=== PATIENT | male | born 1935 | race Caucasian/White ===

== ENCOUNTER → 2016-12-05 | Outpatient (CLI) | payer OTHER, BC ==
[~2016-12-05] MED LIST: ALL300 OR; ASPI81TA28 PO; LEVO75TA5 PO; METO100T14 PO; OMEP20TA PO; SIMV80TA2 PO
[2016-12-05 12:50] LABS: HEMATOCRIT 40.3 % (42-52); MEAN CELL VOLUME 98.8 fL (80-100); MEAN CORPUSCULAR HEMOGLOBIN 34.1 pg (25-34); MEAN CORPUSCULAR HGB CONC 34.5 g/dl (32-36); MEAN PLATELET VOLUME 11.8 fL (7.4-10.4); PLATELET COUNT 89 K/uL (130-400); RED BLOOD COUNT 4.08 M/uL (4.7-6.1)
[2016-12-05 12:57] LABS: ESTIMATED AVERAGE GLUCOSE 117 mg/dl; HA1C FLAG Normal (Normal)
[2016-12-05 13:07] LABS: ALT/SGPT 25 U/L (12-78); BLOOD UREA NITROGEN 19 mg/dl (7-18); BUN/CREATININE RATIO 14.5 (10-20); CALCIUM 8.9 mg/dl (8.5-10.1); CARBON DIOXIDE 29 mmol/L (21-32); CHLORIDE 107 mmol/L (98-107); CHOLESTEROL 136 mg/dl (0-200); GLUCOSE 97 mg/dl (70-99); POTASSIUM 4.3 mmol/L (3.5-5.1); SODIUM 142 mmol/L (136-145); URIC ACID 4.1 mg/dl (2.6-7.2)
[2016-12-05 13:10] LABS: ALB/GLOB RATIO 1.1 (0.9-2); ALKALINE PHOSPHATASE 68 U/L (45-117); AST/SGOT 19 U/L (15-37); CHOLESTEROL/HDL RATIO 3.8; HDL CHOLESTEROL 36 mg/dl; LDL CHOLESTEROL CALCULATED 69 mg/dl; TRIGLYCERIDES 155 mg/dl (0-150); VERY LOW DENSITY LIPOPROT CALC 31 mg/dl
[2016-12-05 13:29] LABS: BASO % 0.5 %; BASO ABS # 0.04 K/uL (0-0.2); COMPLETE YES; EOS % 4.2 %; IG% 0.3 %; LYMPH % 14.5 %; LYMPH ABS # 1.07 K/uL (1.2-3.4); MONO % 7.3 %; NEUT % 73.2 %
== END | disposition home or self-care (01) ==
LOC: C.LABBFT 08:22
PROVIDERS: ATTEND Internal Medicine
DX: Z00.00 Encounter for general adult medical examination without abnormal findings (principal); E78.00 Pure hypercholesterolemia, unspecified; R73.09 Other abnormal glucose; I10 Essential (primary) hypertension; I25.10 Atherosclerotic heart disease of native coronary artery without angina pectoris

== ENCOUNTER → 2016-12-18 | Outpatient (CLI) | payer OTHER, BC ==
--- NOTE | 2016-12-18 10:21 | DIAGNOSTIC IMAGING REPORT ---
ABDOMINAL ULTRASOUND COMPLETE HISTORY: D69.6 Thrombocytopenia. COMPARISON: None. FINDINGS: Pancreas: The pancreas demonstrates a normal echotexture. Liver: The liver is echogenic consistent with fatty change. Gallbladder: A few small gallstones. No gallbladder wall thickening. CBD: 5 mm. Kidneys: No hydronephrosis. Both kidneys measure 10.6 cm in length. Spleen: Normal in size measuring 11.7 cm in length. Aorta: Normal in caliber. IMPRESSION: 1. Cholelithiasis. No gallbladder wall thickening. 2. Mild hepatic steatosis. Electronically signed by: Steve Levy M.D. 12/18/2016 10:20 AM Dictated Date/Time: 12/18/2016 10:19 AM
--- NOTE | 2016-12-18 11:30 | DIAGNOSTIC IMAGING REPORT ---
BILATERAL CAROTID DOPPLER STUDY HISTORY: Follow-up carotid PLAQUE. Assess for stenosis. COMPARISON: Carotid Doppler 03/25/2014. TECHNIQUE: Real-time, grayscale, and color Doppler sonography of the carotid arteries was performed. Imaging reviewed in the transverse and longitudinal planes. All measurements were calculated based on NASCET criteria. FINDINGS: Antegrade flow is seen in the bilateral vertebral arteries. The brachial pressures are hemodynamically similar. Mild calcified plaque within the bilateral carotid bifurcations. The peak systolic velocity within the right ICA is 69 cm/s. The right systolic ratio is 1.1. The peak systolic velocity within the left ICA is 65 cm/s. The left systolic ratio is 1.2. IMPRESSION: No hemodynamically significant stenosis seen within the carotid arteries. Bilateral carotid bifurcation plaque remains unchanged. Electronically signed by: Steve Levy M.D. 12/18/2016 11:29 AM Dictated Date/Time: 12/18/2016 11:28 AM
--- NOTE | 2016-12-22 12:20 | CODING QUERY MEDICAL NECESSITY ---
SUPPORTING DIAGNOSIS NEEDED A supporting diagnosis is required for the test/procedure performed on this patient in order for us to be reimbursed by the patient's insurance. Please provide a supporting diagnosis for the following test/procedure listed below next to the test name along with your signature. *If there is no additional diagnosis for this patient that would support the following test/procedure please document that below next to the test/procedure. Test(s)/Procedure(s) that require a supporting diagnosis: * CAROTID DOPPLER DUPLEX NECK DIAGNOSIS: * DOS: 12/18/16 Provider Signature: Date: Thank you Radha Cardona Health Information Management Once completed, please kindly fax back to [phone] For questions please call [phone]
== END | disposition home or self-care (01) ==
LOC: C.ULTR 09:26
PROVIDERS: ATTEND Internal Medicine
DX: D69.6 Thrombocytopenia, unspecified (principal); I65.29 Occlusion and stenosis of unspecified carotid artery; K80.20 Calculus of gallbladder without cholecystitis without obstruction

== ENCOUNTER → 2016-12-20 | Outpatient (CLI) | payer OTHER, BC ==
[2016-12-20 11:35] LABS: BASO % 0.6 %; BASO ABS # 0.05 K/uL (0-0.2); COMPLETE YES; HEMATOCRIT 40.5 % (42-52); IG% 0.5 %; LYMPH % 16.8 %; LYMPH ABS # 1.41 K/uL (1.2-3.4); MEAN CELL VOLUME 97.6 fL (80-100); MEAN CORPUSCULAR HEMOGLOBIN 33.7 pg (25-34); MEAN CORPUSCULAR HGB CONC 34.6 g/dl (32-36); MEAN PLATELET VOLUME 9.7 fL (7.4-10.4); MONO % 8.2 %; NEUT % 70.9 %; PLATELET COUNT 259 K/uL (130-400); RED BLOOD COUNT 4.15 M/uL (4.7-6.1); WHITE BLOOD COUNT 8.41 K/uL (4.8-10.8)
== END | disposition home or self-care (01) ==
LOC: C.LABSPEC 10:36
PROVIDERS: ATTEND Internal Medicine
DX: D69.6 Thrombocytopenia, unspecified (principal); E03.9 Hypothyroidism, unspecified

== ENCOUNTER → 2017-01-10 | Outpatient (CLI) | payer OTHER, BC ==
[2017-01-10 12:55] LABS: BLOOD UREA NITROGEN 22 mg/dl (7-18)
== END | disposition home or self-care (01) ==
LOC: C.LABBFT 09:32
DX: H91.8X2 Other specified hearing loss, left ear (principal)

== ENCOUNTER → 2017-01-11 | Outpatient (CLI) | payer OTHER, BC ==
--- NOTE | 2017-01-11 14:12 | DIAGNOSTIC IMAGING REPORT ---
MRI OF THE BRAIN AND IACS WITHOUT AND WITH IV CONTRAST CLINICAL HISTORY: Asymmetric hearing loss left greater than right. COMPARISON STUDY: No previous studies for comparison. TECHNIQUE: MRI of the brain was performed from the vertex to the skull base utilizing various T1 and T2 weighted sequences. Following the IV administration of 8 mL of Gadavist contrast, additional enhanced images were obtained. FINDINGS: Sagittal T1, axial diffusion, proton density and T2 weighted axial, coronal FLAIR, and pre and post axial T1-weighted images were acquired. These were supplemented with post gadolinium coronal T1 weighted images. No intra or extra-axial mass lesions are visualized. Axial diffusion-weighted images reveal no evidence of acute or subacute infarction. There is no evidence of ventricular dilatation. Proton density T2-weighted and FLAIR images reveal no significant intraparenchymal signal abnormalities. There are no abnormal flow voids. There is no evidence of pathologic enhancement. The 7th and 8th nerve complexes appear normal bilaterally. No cerebellopontine angle masses are visualized. IMPRESSION: Normal MRI of the brain for age Electronically signed by: Mark Iqbal M.D. 01/11/2017 2:11 PM Dictated Date/Time: 01/11/2017 2:08 PM
== END | disposition home or self-care (01) ==
LOC: C.MRI 12:01
DX: H91.8X2 Other specified hearing loss, left ear (principal)

== ENCOUNTER → 2017-10-02 | Outpatient (CLI) | payer OTHER, BC | END | disposition home or self-care (01) | LOC: C.LABBFT 07:50 | PROVIDERS: ATTEND Internal Medicine Cardiovascular Disease | DX: E78.00 Pure hypercholesterolemia, unspecified (principal) ==

== ENCOUNTER → 2018-01-08 | Outpatient (CLI) | payer OTHER, BC ==
[2018-01-08 12:51] LABS: RETIC COUNT % 1.5 % (0.5-2.0)
[2018-01-08 13:29] LABS: ALBUMIN 3.7 gm/dl (3.4-5.0); BLOOD UREA NITROGEN 23 mg/dl (7-18); CARBON DIOXIDE 26 mmol/L (21-32); CREATININE 1.37 mg/dl (0.60-1.40); GLUCOSE 92 mg/dl (70-99); SODIUM 137 mmol/L (136-145)
[2018-01-08 13:34] LABS: PHOSPHORUS 2.6 mg/dl (2.5-4.9); TRANSFERRIN 216 mg/dl (200-360)
== END | disposition home or self-care (01) ==
LOC: C.LABBFT 07:54
PROVIDERS: ATTEND Internal Medicine
DX: I25.10 Atherosclerotic heart disease of native coronary artery without angina pectoris (principal); D64.9 Anemia, unspecified; I10 Essential (primary) hypertension

== ENCOUNTER 2019-07-08 11:48 | Observation (INO) ==
[2019-07-08] MEDS ORDERED: fentaNYL citrate 100 MCG/2 ML VIAL ONE (13:18)
[2019-07-08] MEDS ORDERED: MIDAZOLAM HCL 5 MG/ML 1 ML VIAL ONE (13:18)
[2019-07-08] MEDS ORDERED: LIDOCAINE HCL 1% 20 ML VIAL ONE (13:18)
[2019-07-08] MEDS ORDERED: BACITRACIN OINT 0.9 GM PKT ONE (13:18)
[2019-07-08] MEDS ORDERED: BACITRACIN INJ 50,000 UNIT VIAL ONE (13:18)
[2019-07-08] MEDS ORDERED: CEFAZOLIN 250 MG/ML 1 GM VIAL ONE (13:19)
--- NOTE | 2019-07-08 13:47 | History & Physical Bridge Note ---
Date of Service July 08, 2019 History & Physical Bridge Note I have examined the patient, reviewed the History & Physical and in the interval since the performance of the History & Physical I have noted the following changes of clinical significance: no changes noted. I repeated the electrocardiogram today, his QRS remains just over 120 ms, with an IVCD pattern, not sufficient to make biventricular pacing worthwhile. I discussed the indications, procedure, risks and alternatives with him and his family and they understand and he agrees to proceed. Consent obtained. I also discussed conscious sedation and he agrees. Consent obtained.
--- NOTE | 2019-07-08 13:48 | Pre Anesthesia Assessment ---
Date of Service July 08, 2019 Pre Sedation Assessment Vital Signs Temp Pulse Resp BP Pulse Ox 07/08/19 12:07 36.5 C 60 14 134/75 98 Cardiovascular RRR, no murmur, no edema Respiratory normal respiratory effort, lungs clear to auscultation Pre-Sedation Airway Assessment Smoking Status: Never smoker Hx Sleep Apnea: No Hx Difficult Intubation: No Short, Thick Neck: No Thyromental Distance: > or= 3.5 Finger Breadths Mallampati Class: III ASA: ASA3 NPO Status Date of Last Intake of Fluids: 07/08/19 Time of Last Intake of Fluids: 07:00 Last Oral Intake of Fluids Comment: sips with pills Date of Last Intake of Solid Food: 07/07/19 Time of Last Intake of Solid Foods: 20:00 Procedure Planning Contraindications for Sedation: none Current Medications Reviewed: Yes Notes The planned sedation has been discussed with the patient. Informed Consent was obtained. I have identified the patient, determined the appropriateness of sedation and have assessed the patient immediately prior to the procedure. All medicine(s) and interventions are by my order.
--- NOTE | 2019-07-08 15:11 | Operative Report ---
Post Operative Report Pre & Post Diagnosis Operation Date: 07/08/19 13:00 Preoperative diagnosis: Ischemic cardiomyopathy, sinus bradycardia Postoperative diagnosis: Same Procedure Operation Date: 07/08/19 13:00 Actual Procedures p ICD Insertion Single or Dual - Sy Bolden MD (dual-chamber ICD implantation) Surgeon Sy Bolden MD Medical Writer None Estimated Blood Loss 30 Findings Consistent with Post-Op Diagnosis Good lead position, good measurements Specimens None Anesthesia Type Local Complications none Disposition Accompanied Patient To Recovery: No Disposition: PCU Description of Procedure After obtaining informed consent for the procedure, the patient was brought to the laboratory and prepped and draped in the standard sterile manner. The left prepectoral region was anesthetized with 1% lidocaine local anesthetic and left axillary venipuncture was performed by percutaneous technique and a guidewire placed through the left subclavian vein into the superior vena cava. The area was further infiltrated with 1% lidocaine local anesthetic and a 7 cm incision was made parallel to the left clavicle and 2 cm below it and carried down to the anterior pectoralis fascia. An ICD pocket was formed by blunt dissection anterior to the pectoralis fascia and a bacitracin-soaked sponge (50,000 units in 50 cc normal saline solution) was placed in the pocket. A 10.5 [place] Medtronic lead introducer was placed over the guidewire into the left subclavian vein, the dilator and guidewire were removed and a bipolar dual coil active fixation steroid tipped ventricular ICD lead was advanced through the introducer into the superior vena cava. A guidewire was placed through the introducer and the introducer was stripped from the lead and guidewire. An 8 [place] Medtronic lead introducer was placed over the guidewire into the left subclavian vein, the dilator and guidewire were removed and a bipolar active fixation steroid tipped atrial lead was advanced through the introducer into the superior vena cava. A guidewire was placed back through the introducer and the introducer was stripped from the lead and guidewire. Using a curved stylette the ventricular lead was advanced through the right ventricular outflow tract into the pulmonary artery and then using a straight stylette was positioned in the right ventricular apex. The screw was extended fixing the lead in position. Pacing and sensing thresholds were evaluated in bipolar configuration and are recorded on the implant data sheet. Using a curved stylette the atrial lead was positioned in the region of the atrial appendage and the screw extended fixing the lead in position. Pacing and sensing thresholds were evaluated in bipolar configuration and are recorded on the implant data sheet. Once the leads were in position they were attached to the anterior pectoralis fascia using 2 sutures of 2-0 silk around each lead collar. The bacitracin- soaked sponge was removed from the pocket, hemostasis was obtained, the ICD was attached to the leads and placed in the pocket with the leads coiled beneath it. The incision was closed with a running double subcutaneous closure of 3-0 Vicryl absorbable suture, followed by running subcuticular skin closure of 4-0 Vicryl absorbable suture. Bacitracin ointment was placed on the incision and a dressing applied. I attest to the content of the Intraoperative Record and any orders documented therein. Any exceptions are noted below.
[2019-07-08] MEDS ORDERED: ACETAMINOPHEN 325 MG TAB PO PRN (15:16)
[2019-07-08] MEDS ORDERED: KETOROLAC TROMETHAMINE 10 MG TABLET PO PRN (15:16)
[2019-07-08] MEDS ORDERED: NITROGLYCERIN SL 0.4 MG/TAB TAB SL PRN (15:18)
--- NOTE | 2019-07-08 15:21 | Post Anesthesia Assessment ---
Date of Service July 08, 2019 Post Sedation Assessment Vital Signs Temp Pulse Resp BP Pulse Ox 07/08/19 12:07 36.5 C 60 14 134/75 98 Recovery Score Activity: Moves 4 extremities Respiration: Deep Breath/Cough Consciousness: Fully Awake Oxygen Saturation: > 92% On Room Air Discharge Sedation Level of Care: Fast Track Phase II Post Sedation Plan On clinical assessment, the patient appears to have tolerated the sedation without complications. Patient is recovering as anticipated. Patient will continue to be monitored by nursing and may be discharged when sedation discharge criteria are met per below protocol. Upon Completions of procedure and additional 15 minutes continue every 5 minute vital signs and the P.A.R. score; then discharge to a Phase I or Fast Track to Phase II per the following guidelines: * Discharge Patient to appropriate Phase II area if PAR is 8 or greater or return to pre- procedure baseline. The post - procedure orders will be as directed. * If PAR score is less than 8 or not return to pre-procedure baseline then patient will follow Phase I monitoring till PAR is reached for Phase II. The Phase I may be done in procedure room or may call to secure a Phase I area. * If naloxone or flumazenil are used for reversal, hold in Phase I for continued monitoring from when last reversal dose was given for a minimum of 60 minutes or longer pending the nurse and/or physician discretion of patient condition before discharge to Phase II. Please call the Sedation Physician to re-evaluate and complete post-note for discharge to Phase II area. Do NOT discharge from procedure sedation or Phase 1 until post- sedation evaluation note is complete by procedure /sedation MD Sedation Discharge Instructions to be given to the patient at discharge to home.
[2019-07-08] MEDS: RANOLAZINE 500 MG ER TAB PO SCH (19:21)
[2019-07-08] MEDS: PANTOprazole 40 MG TAB PO SCH (19:21)
[2019-07-09] MEDS ORDERED: LEVOTHYROXINE SODIUM 75 MCG TABLET PO SCH (06:30)
[2019-07-09] MEDS ORDERED: PNEUMOCOCCAL ADMINISTRATION CHARGE ONE (08:00)
[2019-07-09] MEDS ORDERED: PNEUMOCOCCAL POLYSACCHARIDES 25 MCG/0.5 ML VIAL/SYR IM ONE (08:00)
[2019-07-09] MEDS: PANTOprazole 40 MG TAB PO SCH (08:01)
[2019-07-09] MEDS: RANOLAZINE 500 MG ER TAB PO SCH (08:01)
[2019-07-09] MEDS ORDERED: SIMVASTATIN 40 MG TAB PO SCH (09:00)
[2019-07-09] MEDS ORDERED: allopurinoL 300 MG TAB PO SCH (09:00)
[2019-07-09] MEDS ORDERED: ASCORBIC ACID 500 MG TAB PO SCH (09:00)
[2019-07-09] MEDS ORDERED: ASPIRIN 81 MG ECTAB PO SCH (09:00)
[2019-07-09] MEDS ORDERED: METOPROLOL SUCC 50MG EXT REL TAB PO SCH (09:00)
[2019-07-09] MEDS ORDERED: CEROVITE ADV FORMULA TAB PO SCH (09:00)
--- NOTE | 2019-07-09 09:38 | XRay Report ---
TWO VIEW CHEST CLINICAL HISTORY: Pacemaker implantation. FINDINGS: PA and lateral chest radiographs are compared to study dated 03/19/2019. A 2-lead cardiac AIC D has been placed and partially obscures the left apex. Leads project over the right atrial appendage and the right ventricle. The heart is enlarged noting atherosclerotic calcification of the thoracic aorta. The pulmonary vasculature is noncongested. There are calcified mediastinal and hilar lymph nod es. Chronic interstitial thickening is similar to previous. No airspace consolidation or pleural effu ashwin is identified. There is no pneumothorax. The skeletal structures are osteopenic. The bony thorax appears intact. IMPRESSION: 1. A 2-lead cardiac AICD has been placed as detailed above. No pneumothorax is seen post procedure. 2. Cardiomegaly without radiographic evidence of congestive failure. 3. No airspace consolidation or pleural effusion is identified. Electronically signed by: Kun Celeste M.D. 07/09/2019 9:36 AM
--- NOTE | 2019-07-09 10:49 | Cardiology Progress Note ---
Date of Service July 09, 2019 Assessment & Plan (1) History of implantable cardioverter-defibrillator (ICD) placement: He is doing well postop day #1, the site looks good, the chest x-ray shows good lead position and the device is working well. He is stable for discharge. Subjective He is feeling well today, he has no significant incisional discomfort, no shortness of breath and no chest discomfort. Physical Exam Physical Exam: The ICD insertion site looks clean and dry, there is no bleeding or swelling. Minimal ecchymosis, no tenderness. Results & Data Vital Signs (Past 12 Hours) Vital Signs Temp Pulse Resp BP Pulse Ox 07/09/19 10:41 36.7 C 64 18 121/67 95 07/09/19 07:18 36.7 C 64 18 121/67 95 07/09/19 03:22 37.0 C 65 17 115/70 95 07/08/19 23:30 37.1 C 66 17 124/74 95 Diagnostic Findings Electrocardiogram: Atrial pacing with first-degree AV block. Appropriate pacemaker function. Telemetry: Predominantly atrial pacing, some sinus rhythm, first-degree AV block. Chest x-ray: Good lead position, no pneumothorax ICD evaluation: Excellent pacing and sensing characteristics. PG Care Time/CCT Total # of Minutes Spent Total Time Spent with Patient: Total time spent is greater than 50% in coordination of care (as documented) at patient's floor/unit and/or counseling patient:
--- NOTE | 2019-07-09 10:53 | Discharge Summary ---
Date of Service July 09, 2019 Admission HPI Per Admitting Provider 83-year-old male with an ischemic cardiomyopathy and ejection fraction of 20 to 25% with interventions in the past. His left ventricular function remains reduced on medical therapy therefore he is admitted to undergo ICD implantation for primary prevention of sudden cardiac . Admission Exam (Per Admitting) Constitutional Constitutional: Alert, cooperative and in no distress. Pulmonary: Clear to auscultation bilaterally. Cardiac: Regular rhythm with no murmur, gallop or rub. Abdomen: Soft, nontender with normal bowel sounds. Extremities: No edema. Skin: No rash, ecchymoses or petechiae. Discharge Data Procedures Performed Operation Date: 07/08/19 13:00 Actual Procedures p ICD Insertion Single or Dual - Sy Bolden MD Hospital Course (1) Cardiomyopathy: He was admitted for ICD implantation which was performed on July 08 2019. That procedure was uncomplicated. A dual-chamber device was used as he has sinus bradycardia and he has dyspnea on exertion which may in part be heart rate related. He did well overnight following the procedure, he feels well the following day and is ambulatory. He is stable for discharge.
== END 2019-07-09 13:51 | disposition home or self-care (01) ==
LOC: 2E 11:48 → EP 11:48
PROC: EPB.ICD (2019-07-08 13:00)

== ENCOUNTER 2020-12-27 14:29 | Inpatient (IN) ==
[2020-12-27 15:07] LABS: Basophils # (auto) 0.02 K/uL (0-0.2); Basophils % (auto) 0.2 %; Eosinophils # (auto) 0.07 K/uL (0-0.5); Eosinophils % (auto) 0.7 %; Hematocrit (blood only) 37.3 % (42-52); Hemoglobin 13.4 g/dL (14.0-18.0); Immature Granulocytes # (auto) 0.03 K/uL (0.00-0.02); Immature Granulocytes % (auto) 0.3 %; Lymphocytes # (auto) 1.01 K/uL (1.2-3.4); Lymphocytes % (auto) 10.8 %; Mean Corpuscular Hemoglobin 39.2 pg (25-34); Mean Corpuscular Hgb Conc 35.9 g/dL (32-36); Mean Corpuscular Volume 109.1 fL (80-100); Mean Platelet Volume 10.2 fL (7.4-10.4); Monocytes # (auto) 0.52 K/uL (0.11-0.59); Monocytes % (auto) 5.6 %; Neutrophils # (auto) 7.69 K/uL (1.4-6.5); Neutrophils % (auto) 82.4 %; Platelet Count 155 K/uL (130-400); RDW Coefficient of Variation 13.6 % (11.5-14.5); RDW Standard Deviation 54.1 fL (36.4-46.3); Red Blood Count 3.42 M/uL (4.7-6.1); White Blood Count 9.34 K/uL (4.8-10.8)
--- NOTE | 2020-12-27 15:20 | XRay Report ---
XR chest 1V portable CLINICAL HISTORY: Atypical chest pain COMPARISON STUDY: 03/04/2020 FINDINGS: The heart remains enlarged. Is a left subclavian pacer/defibrillator present. There are sherri cified mediastinal and hilar lymph nodes. There is no failure. There is no focal pulmonary consolidat ion. There are no pleural effusions.[ IMPRESSION: Stable cardiomegaly. No acute findings. ACT 112: Negative or not required by law. Electronically signed by: Mark Iqbal M.D. 12/27/2020 3:19 PM
[2020-12-27] MEDS ORDERED: SODIUM CHLORIDE 0.9% 1000ML 500 ML IV ONE (15:24)
--- NOTE | 2020-12-27 15:29 | Emergency Department Note ---
Impression & Plan Diffuse abdominal pain, SBO (small bowel obstruction), Abdominal distension ED Provider Note NAME: ALLY ORTIZ AGE: 85 SEX: M : 1935 ARRIVES VIA: Walk-In INFORMANT: [Patient] ED PROVIDER(S): [Kun Schafer MD] CHIEF COMPLAINT: Abdominal pain HISTORY OF PRESENT ILLNESS: The patient is an 85-year-old male presents to the ER with 3 days of colicky diffuse abdominal pain. The patient states eating makes things worse. He feels more bloated. The pain has been as bad as a 7/10 although right now, he does not have any pain. There has been no nausea or vomiting. No fever, no diarrhea. No cough or cold or congestion. No chest pain. No urinary complaints. Patient has not had any sick contacts, he has not eaten any food that he would think is responsible. Patient states he has not ever felt this way before. REVIEW OF SYSTEMS: See HPI for pertinent positives and negatives. A total of ten systems were reviewed and were otherwise negative. PMHx/PSHx: See Below SOCIAL HISTORY: See Below. PHYSICAL EXAM: GENERAL: Patient is in no acute distress. HEENT: No acute trauma, normocephalic atraumatic, mucous membranes moist, no nasal congestion, no scleral icterus. NECK: No stridor, no adenopathy, no meningismus, trachea is midline. LUNGS: Clear to auscultation bilaterally, no wheeze, no rhonchi, breath sounds equal. HEART: No murmurs, somewhat irregular rhythm, normal rate. ABDOMEN: Soft, tender primarily in the lower quadrants, more so on the right. There is some abdominal distention with tympany to percussion. No obvious her becky. EXTREMITIES: No cyanosis or edema, full range of motion of all the joints without pain or difficulty, no signs for acute trauma. NEUROLOGIC: Oriented x 3, no acute motor or sensory deficits, no focal weakness. SKIN: No rash, no jaundice, no diaphoresis. DIFFERENTIAL DIAGNOSIS: Appendicitis, testicular torsion, infections, diverticulitis, UTI, obstruction, mesenteric ischemia, aortic pathology, inflammatory bowel disease, renal colic, PUD, pancreatitis, biliary pathology, hernia, volvulus, constipation, as well as other pathologies. EMERGENCY DEPARTMENT COURSE/PROCEDURES: ECG: Indication was abdominal pain. The ECG shows a sinus rhythm with a first-degree AV block with occasional atrial pacing. There are some inverted T waves laterally. The rate is 65. The QTc is 434. There is no ST elevation, no PVCs. Compared to an ECG from 08 July 2019, continuous atrial pacing is no longer present. Continuous Cardiac Monitoring: An order was placed for continuous cardiac monitoring. The monitor shows a rate of 63 with atrial pacing. MEDICAL DECISION MAKING: There is no leukocytosis or concerning anemia. There is a normal platelet count. There was some mild renal insufficiency but this has been documented before. No electrolyte abnormality in need of emergent correction. No worrisome liver enzyme elevation. ECG showed a sinus rhythm with occasional atrial pacing. No acute ischemic change. Cardiac enzyme testing x1 is not consistent with acute cardiac injury. There is no evidence for pancreatitis. Covid testing returned negative. Chest film did not show pneumonia or free air. Abdominal and pelvis CT showed evidence for a small bowel obstruction. No evid ence for abscess or diverticulitis. On exam, the patient's abdomen was distended with tympany to percussion. There was no peritonitis. The patient was not toxic or febrile. The patient received IV saline, 500 cc. He did not require anything for pain. He did eventually have an NG tube placed to low intermittent suction. The patient presents with diffuse abdominal pain and abdominal bloating. He was found to have a small bowel obstruction. An NG tube is now in place. Hospitalization is warranted. I did speak to the patient and case management. I spoke to general surgery. The on-call hospitalist was consulted. Past Med/Surg History Medical History Congenital heart disease Hyperlipidemia Hypothyroidism ICD (implantable cardioverter-defibrillator) in place Myocardial Infarction Ventricular tachycardia Surgical History (Updated 12/27/20 @ 16:48 by Ulysses Andrews MD) History of heart artery stent 04/01/20 [place] [facility] [place] History of implantable cardioverter-defibrillator (ICD) placement Family History (Updated 01/08/20 @ 13:25 by Janay Riojas) Brother Hx of CABG Sister Myocardial infarction Social History Smoking Status: Never smoker Second Hand Exposure: No; Hx Alcohol Use: Yes Alcohol type: beer Hx Substance Use: No Preferred Language: Portuguese Communication Ability: Effective Portuguese Tutor Required: No Beliefs That Will Affect Care: None Current Living Situation: Spouse 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 Feels Safe at Home: Yes Assistive Devices: Glasses Allergies Allergies Allergy/AdvReac Type Severity Reaction Status Date / Time No Known Drug Allergies Allergy Unknown Verified 12/27/20 16:22 Home Meds Home Medications Medication Instructions Recorded Confirmed aspirin 81 mg tablet 81 mg PO DAILY tab 06/02/19 12/27/20 nitroglycerin 0.4 mg sublingual 0.4 mg SL Q5M PRN #25 tab 06/02/19 12/27/20 tablet ascorbic acid (vitamin C) [Vitamin 250 mg PO DAILY 07/08/19 12/27/20 C] multivitamin 1 cap PO DAILY 07/08/19 12/27/20 clopidogrel 75 mg tablet 75 mg PO DAILY 07/19/20 12/27/20 levothyroxine 100 mcg capsule 100 mcg PO DAILY 07/19/20 12/27/20 Previous Rx's Medication Instructions Recorded ranolazine 500 mg tablet,extended 500 mg PO BID #180 tab 01/19/20 release,12 hr allopurinol 300 mg tablet 300 mg PO DAILY #90 tab 07/05/20 omeprazole 20 mg capsule,delayed 20 mg PO DAILY #30 cap 08/02/20 release simvastatin 80 mg tablet 40 mg PO DAILY #45 tab 09/13/20 metoprolol succinate 100 mg 100 mg PO BID #180 tab 10/18/20 tablet,extended release 24 hr Results & Data (ED) Vital Signs Vital Signs - 24 hr 12/27/20 14:33 12/27/20 14:50 12/27/20 15:36 Temperature 36.4 C L Temperature Source Temporal Artery Scan Pulse Rate 76 63 Pulse Rate [Left Finger] 65 Pulse Rhythm Regular Pulse Strength Normal Respiratory Rate 18 16 20 Respiratory Effort / Characteristics Non-Labored Spontaneous Respiratory Depth Normal Respiratory Pattern Regular Blood Pressure 109/74 Blood Pressure [Left Arm] 124/70 Blood Pressure Mean 85 Blood Pressure Mean [Left Arm] 88 Blood Pressure Position [Left Arm] Sitting Pulse Oximetry 94 98 98 Oxygen Delivery Method Room Air Room Air Room Air Sepsis Recent Fever Within 48 Hours No Sepsis New/Unexplained Change in Mental Status N/A Sepsis Action Taken by Nursing No Action Required 12/27/20 17:24 Temperature Temperature Source Pulse Rate Pulse Rate [Left Finger] 66 Pulse Rhythm Pulse Strength Respiratory Rate 20 Respiratory Effort / Characteristics Respiratory Depth Respiratory Pattern Blood Pressure Blood Pressure [Left Arm] 150/107 H Blood Pressure Mean Blood Pressure Mean [Left Arm] 121 Blood Pressure Position [Left Arm] Sitting Pulse Oximetry 96 Oxygen Delivery Method Room Air Sepsis Recent Fever Within 48 Hours Sepsis New/Unexplained Change in Mental Status Sepsis Action Taken by Detention Medications Current Medication List: was personally reviewed by me Laboratory Data Attestation: I reviewed the patient's lab results. Result diagrams: 12/28/20 08:44 12/28/20 08:44 Lab Results 12/27/20 12/27/20 12/27/20 Range/Units 14:07 14:07 16:46 WBC 9.34 (4.8-10.8) K/uL RBC 3.42 L (4.7-6.1) M/uL Hgb 13.4 L (14.0-18.0) g/dL Hct 37.3 L (42-52) % MCV 109.1 H (80-100) fL MCH 39.2 H (25-34) pg MCHC 35.9 (32-36) g/dL RDW Std Deviation 54.1 H (36.4-46.3) fL RDW Coeff of Karla 13.6 (11.5-14.5) % Plt Count 155 (130-400) K/uL MPV 10.2 (7.4-10.4) fL Immature Gran % (Auto) 0.3 % Neut % (Auto) 82.4 % Lymph % (Auto) 10.8 % [place] % (Auto) 5.6 % Eos % (Auto) 0.7 % Baso % (Auto) 0.2 % Neut # (Auto) 7.69 H (1.4-6.5) K/uL Lymph # (Auto) 1.01 L (1.2-3.4) K/uL [place] # (Auto) 0.52 (0.11-0.59) K/uL Eos # (Auto) 0.07 (0-0.5) K/uL Baso # (Auto) 0.02 (0-0.2) K/uL Immature Gran # (Auto) 0.03 H (0.00-0.02) K/uL Sodium 139 (136-145) mmol/L Potassium 4.1 (3.5-5.1) mmol/L Chloride 107 (98-107) mmol/L Carbon Dioxide 29 (21-32) mmol/L Anion Gap 3.0 (3-11) BUN 23 H (7-18) mg/dl Creatinine 1.54 H (0.6-1.4) mg/dl Est Cr Clr Drug Dosing 37.7 ml/min Est GFR ( Amer) 47.3 Est GFR (Non-Af Amer) 40.8 BUN/Creatinine Ratio 15.2 (10-20) Glucose 124 H (70-99) mg/dl Calcium 9.2 (8.5-10.1) mg/dl Total Bilirubin 0.7 (0.2-1) mg/dl AST 13 L (15-37) U/L ALT 18 (12-78) U/L Alkaline Phosphatase 68 (45-117) U/L Troponin I < 0.015 (0-0.045) ng/ml Total Protein 7.6 (6.4-8.2) gm/dl Albumin 3.6 (3.4-5.0) gm/dl Globulin 4.0 (2.5-4.0) gm/dl Albumin/Globulin Ratio 0.9 (0.9-2) Lipase 48 L (73-393) U/L COVID-19 Eval Order Covid19 IDNow atMVTC SARS-CoV-2, RNA, NAAT (NEGATIVE) 12/27/20 Range/Units 16:46 WBC (4.8-10.8) K/uL RBC (4.7-6.1) M/uL Hgb (14.0-18.0) g/dL Hct (42-52) % MCV (80-100) fL MCH (25-34) pg MCHC (32-36) g/dL RDW Std Deviation (36.4-46.3) fL RDW Coeff of Karla (11.5-14.5) % Plt Count (130-400) K/uL MPV (7.4-10.4) fL Immature Gran % (Auto) % Neut % (Auto) % Lymph % (Auto) % [place] % (Auto) % Eos % (Auto) % Baso % (Auto) % Neut # (Auto) (1.4-6.5) K/uL Lymph # (Auto) (1.2-3.4) K/uL [place] # (Auto) (0.11-0.59) K/uL Eos # (Auto) (0-0.5) K/uL Baso # (Auto) (0-0.2) K/uL Immature Gran # (Auto) (0.00-0.02) K/uL Sodium (136-145) mmol/L Potassium (3.5-5.1) mmol/L Chloride (98-107) mmol/L Carbon Dioxide (21-32) mmol/L Anion Gap (3-11) BUN (7-18) mg/dl Creatinine (0.6-1.4) mg/dl Est Cr Clr Drug Dosing ml/min Est GFR ( Amer) Est GFR (Non-Af Amer) BUN/Creatinine Ratio (10-20) Glucose (70-99) mg/dl Calcium (8.5-10.1) mg/dl Total Bilirubin (0.2-1) mg/dl AST (15-37) U/L ALT (12-78) U/L Alkaline Phosphatase (45-117) U/L Troponin I (0-0.045) ng/ml Total Protein (6.4-8.2) gm/dl Albumin (3.4-5.0) gm/dl Globulin (2.5-4.0) gm/dl Albumin/Globulin Ratio (0.9-2) Lipase (73-393) U/L COVID-19 Eval Order SARS-CoV-2, RNA, NAAT NEGATIVE (NEGATIVE) Administered Medications Allopurinol (Allopurinol 300 Mg Tab) 300 mg PO DAILY IDALMIS Stop: 01/27/21 08:59 Last Admin: 12/28/20 08:25 Dose: 300 mg Documented by: [id number] Aspirin (Aspirin 81 Mg Ectab) 81 mg PO DAILY IDALMIS Stop: 01/27/21 08:59 Last Admin: 12/28/20 08:25 Dose: 81 mg Documented by: [id number] Clopidogrel Bisulfate (Clopidogrel Bisulfate 75 Mg Tab) 75 mg PO DAILY IDALMIS Stop: 01/27/21 08:59 Last Admin: 12/28/20 08:25 Dose: 75 mg Documented by: [id number] Lactated Ringer's (Lr) 1,000 mls @ 125 mls/hr IV .Q8H IDALMIS Stop: 01/26/21 22:59 Last Admin: 12/28/20 07:07 Dose: 125 mls/hr Documented by: [id number] Infusion: 12/28/20 07:07 Dose: 125 mls/hr Documented by: [id number] Admin: 12/27/20 23:18 Dose: 125 mls/hr Documented by: [id number] Metoprolol Succinate (Metoprolol Succ 50mg Ext Rel Tab) 100 mg PO BID IDALMIS Stop: 01/26/21 20:59 Last Admin: 12/28/20 08:25 Dose: 100 mg Documented by: [id number] Admin: 12/27/20 20:42 Dose: 100 mg Documented by: [id number] Ranolazine (Ranolazine 500 Mg Er Tab) 500 mg PO BID IDALMIS Stop: 01/26/21 20:59 Last Admin: 12/28/20 08:25 Dose: 500 mg Documented by: [id number] Admin: 12/27/20 20:42 Dose: 500 mg Documented by: [id number] Discontinued Medications Sodium Chloride (Nss 1000ml) 500 mls @ 999 mls/hr IV .Q31M ONE Stop: 12/27/20 15:54 Last Infusion: 12/27/20 17:15 Dose: 0 mls/hr Documented by: [id number] Admin: 12/27/20 15:35 Dose: 999 mls/hr Documented by: [id number] Pantoprazole Sodium 40 mg/ (Syringe) 10 mls @ 5 mls/min IV NOW ONE Stop: 12/27/20 20:01 Last Admin: 12/27/20 20:37 Dose: 5 mls/min Documented by: [id number] Ioversol (Ioversol 100ml) 94 ml IV ONCE ONE Stop: 12/27/20 16:03 Last Admin: 12/27/20 16:02 Dose: 94 ml Documented by: [id number] Imaging Data Radiologist's Impression: XR chest 1V portable CLINICAL HISTORY: Atypical chest pain COMPARISON STUDY: 03/04/2020 FINDINGS: The heart remains enlarged. Is a left subclavian pacer/defibrillator present. There are calcified mediastinal and hilar lymph nodes. There is no failure. There is no focal pulmonary consolidation. There are no pleural effusions.[ IMPRESSION: Stable cardiomegaly. No acute findings. CT abd pelvis IV con only CLINICAL HISTORY: Abdominal pain COMPARISON STUDY: None. TECHNIQUE: The patient was scanned in a dynamic helical fashion during intravenous administration of 94 cc of Optiray 320 A dose lowering technique was utilized adhering to the principles of ALARA. CT DOSE: 468.32 mGy.cm FINDINGS: Lower chest: There are mild dependent atelectatic changes. There is a calcified left lower lobe granuloma. Liver: The contrast-enhanced liver is normal in size, contour, and attenuation. There is no intrahepatic biliary ductal dilatation. The hepatic veins and portal veins are patent. Gallbladder: Cholelithiasis Spleen: Normal in size and attenuation. Pancreas: Unremarkable. Adrenal glands: Unremarkable. Kidneys: There is a 12 mm left renal cortical cyst. There is no hydronephrosis. Bowel: There is no evidence of acute diverticulitis. There are mildly dilated proximal and mid small bowel loops with multiple air-fluid levels. The distal small bowel is of normal caliber. The findings are indicative of a small bowel obstruction. There is a small amount of associated mesenteric fluid. No pneumatosis is visualized. There is no portal venous gas. Peritoneum: There is minimal ascites. No free intraperitoneal air is visualized. There are fat-containing inguinal hernias Vasculature: The abdominal aorta is normal in course and caliber. Adenopathy: None. Pelvic viscera: There is mild prostatomegaly Skeletal structures: No destructive osseous lesions are seen. IMPRESSION: 1. Mid small bowel obstruction. Small amount of associated mesenteric fluid. No pneumatosis or portal venous gas identified 2. Cholelithiasis Discharge Plan Visit Data Chief Complaint: Abdominal Pain Stated Complaint: STOMACH PAIN ED Provider: Kun Schafer Discharge Problem: Diffuse abdominal pain, SBO (small bowel obstruction), Abdominal distension Patient Disposition: Admitted As Inpatient Condition: Fair Discharge Instructions Interventions: ED Discharge Assessment Last Done: 12/27/20 19:26
[2020-12-27 15:31] LABS: Alanine Aminotransferase 18 U/L (12-78); Albumin Level 3.6 gm/dl (3.4-5.0); Aspartate Aminotransferase 13 U/L (15-37); BUN Creatinine Ratio 15.2 (10-20); Blood Urea Nitrogen 23 mg/dl (7-18); Calcium 9.2 mg/dl (8.5-10.1); Carbon Dioxide 29 mmol/L (21-32); Chloride 107 mmol/L (98-107); Creatinine Clr Calc Pharmacy 37.7 ml/min; Est GFR (African American) 47.3; Est GFR (Non-African American) 40.8; Glucose 124 mg/dl (70-99); Lipase 48 U/L (73-393); Potassium 4.1 mmol/L (3.5-5.1); Sodium 139 mmol/L (136-145)
[2020-12-27 15:36] LABS: Albumin Globulin Ratio 0.9 (0.9-2); Alkaline Phosphatase 68 U/L (45-117); Bilirubin,Total 0.7 mg/dl (0.2-1); Total Protein 7.6 gm/dl (6.4-8.2); Troponin I < 0.015 ng/ml (0-0.045)
[2020-12-27] MEDS ORDERED: OPTIRAY 320 100ml IV ONE (16:02)
--- NOTE | 2020-12-27 16:21 | CT Scan Report ---
CT abd pelvis IV con only CLINICAL HISTORY: Abdominal pain COMPARISON STUDY: None. TECHNIQUE: The patient was scanned in a dynamic helical fashion during intravenous administration of 94 cc of Optiray 320 A dose lowering technique was utilized adhering to the principles of ALARA. CT DOSE: 468.32 mGy.cm FINDINGS: Lower chest: There are mild dependent atelectatic changes. There is a calcified left lower lobe granu dino. Liver: The contrast-enhanced liver is normal in size, contour, and attenuation. There is no intrahepa tic biliary ductal dilatation. The hepatic veins and portal veins are patent. Gallbladder: Cholelithiasis Spleen: Normal in size and attenuation. Pancreas: Unremarkable. Adrenal glands: Unremarkable. Kidneys: There is a 12 mm left renal cortical cyst. There is no hydronephrosis. Bowel: There is no evidence of acute diverticulitis. There are mildly dilated proximal and mid small bowel loops with multiple air-fluid levels. The distal small bowel is of normal caliber. The findings are indicative of a small bowel obstruction. There is a small amount of associated mesenteric fluid. No pneumatosis is visualized. There is no portal venous gas. Peritoneum: There is minimal ascites. No free intraperitoneal air is visualized. There are fat-contai berhane inguinal hernias Vasculature: The abdominal aorta is normal in course and caliber. Adenopathy: None. Pelvic viscera: There is mild prostatomegaly Skeletal structures: No destructive osseous lesions are seen. IMPRESSION: 1. Mid small bowel obstruction. Small amount of associated mesenteric fluid. No pneumatosis or portal venous gas identified 2. Cholelithiasis ACT 112: Negative or not required by law. Electronically signed by: Mark Iqbal M.D. 12/27/2020 4:20 PM
--- NOTE | 2020-12-27 16:45 | History & Physical Report ---
Date of Service December 27, 2020 Assessment & Plan (1) Small bowel obstruction: Adhesions statistically still the most likely cause despite vaginal abdomen. No definitive findings suggestive of malignancy on imaging or lab work - although stable macrocytosis unexplained. NG tube placed in ER - place to low intermittent suction. NPO, IV fluids Consult surgery (2) Macrocytosis: Without significant anemia. Appears to be stable however abnormality points towards hematological malignancy possibly as a course of small bowel obstruction. B12, folate, reticulocyte count, peripheral smear with a.m. labs (3) Coronary artery disease: Notably complex history with x2 drug-eluting stent placed within the last 1 year. Despite small bowel obstruction we will continue aspirin and clopidogrel since a stent was placed within the last year. Continue ranolazine 500 mg p.o. twice daily to avoid anginal symptoms. Continue metoprolol succinate 100 mg p.o. twice daily to avoid rebound tachycardia. Restart simvastatin 40 mg p.o. daily once small bowel obstruction is resolving. (4) Hyperlipidemia: Restart simvastatin 40 mg p.o. daily as above once small bowel obstruction resolving. (5) ICD (implantable cardioverter-defibrillator) in place: Noted (6) Hypothyroidism: TSH WNL October 2020. Restart on levothyroxine 100 mcg p.o. daily once small bowel obstruction resolving (7) DVT prophylaxis: SCDs Admission and Anticipated Discharge Date Admission Date: December 27, 2020 History of Present Illness Chief Complaint: Abdominal pain Primary Care Provider: Baldo Morris MD Yonis Jones is an 85-year-old male who presents to the ER with 3 days of generalized abdominal pain. Slowly progressively worse during this time worse with eating. Associated nausea, no vomiting. No change in diarrhea, constipation, melena or bright red blood in stool. No loss of weight. Last colonoscopy > 10 years ago but no prior polyps found. No prior history of abdominal surgery. Patient with notable history of coronary artery disease and multiple stents placed most recently x2 HELGA to RCA in March 2020. Allergies Allergy/AdvReac Type Severity Reaction Status Date / Time No Known Drug Allergies Allergy Unknown Verified 12/27/20 16:22 Home Medications Medication Instructions Recorded Confirmed Type aspirin 81 mg tablet 81 mg PO DAILY tab 06/02/19 12/27/20 History nitroglycerin 0.4 mg sublingual 0.4 mg SL Q5M PRN #25 tab 06/02/19 12/27/20 History tablet ascorbic acid (vitamin C) [Vitamin 250 mg PO DAILY 07/08/19 12/27/20 History C] multivitamin 1 cap PO DAILY 07/08/19 12/27/20 History ranolazine 500 mg tablet,extended 500 mg PO BID #180 tab 01/19/20 12/27/20 Rx release,12 hr allopurinol 300 mg tablet 300 mg PO DAILY #90 tab 07/05/20 12/27/20 Rx clopidogrel 75 mg tablet 75 mg PO DAILY 07/19/20 12/27/20 History levothyroxine 100 mcg capsule 100 mcg PO DAILY 07/19/20 12/27/20 History omeprazole 20 mg capsule,delayed 20 mg PO DAILY #30 cap 08/02/20 12/27/20 Rx release simvastatin 80 mg tablet 40 mg PO DAILY #45 tab 09/13/20 12/27/20 Rx metoprolol succinate 100 mg 100 mg PO BID #180 tab 10/18/20 12/27/20 Rx tablet,extended release 24 hr Past Med/Surg History Medical History Congenital heart disease Hyperlipidemia Hypothyroidism ICD (implantable cardioverter-defibrillator) in place Myocardial Infarction Ventricular tachycardia Surgical History (Updated 12/27/20 @ 16:48 by Ulysses Andrews MD) History of heart artery [place] [facility] [place] History of implantable cardioverter-defibrillator (ICD) placement Family History (Updated 01/08/20 @ 13:25 by Janay Riojas) Brother Hx of CABG Sister Myocardial infarction Social History Smoking Status: Never smoker Second Hand Exposure: No; Hx Alcohol Use: Yes Alcohol type: beer Hx Substance Use: No Preferred Language: Liberian Communication Ability: Effective Spool Sorter Required: No Beliefs That Will Affect Care: None Current Living Situation: Spouse 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 Feels Safe at Home: Yes Assistive Devices: Glasses Review of Systems Review of Systems: All systems reviewed & are unremarkable except as noted in HPI & below Physical Exam Constitutional: WD/WN, vitals as above Eyes: + anicteric sclerae; normal pupil size ENMT: external ear and nose normal, oropharynx normal Neck: trachea midline, no thyromegaly Respiratory: normal respiratory effort, lungs clear to auscultation Cardiovascular: Rate/Rhythm: regular rate and regular rhythm Vessels: no JVD Extremities: normal capillary refill and + pedal edema (Trace equal bilaterally) Gastrointestinal (Abdomen): Inspection/Auscultation: + abdomen distended and + hypoactive bowel sounds Percussion/Palpation: + abdomen tender (Mild throughout) and abdomen soft; no guarding and abdomen not rigid Musculoskeletal: no cyanosis or clubbing, extremities motor strength 5/5 Skin: no rashes, warm and dry Neurologic: moves all extremities and awake; not confused Psychiatric: A+Ox3, euthymic affect Genitourinary: no CVA tenderness Results & Data Results & Data ([facility]) Vital Signs (Past 12 Hours) Vital Signs Temp Pulse Pulse Resp BP BP Pulse Ox 12/27/20 15:36 65 20 124/70 98 12/27/20 14:50 63 16 98 12/27/20 14:33 36.4 C L 76 18 109/74 94 Diagnostic Findings XR chest 1V portable IMPRESSION: Stable cardiomegaly. No acute findings. CT abd pelvis IV con only IMPRESSION: 1. Mid small bowel obstruction. Small amount of associated mesenteric fluid. No pneumatosis or portal venous gas identified 2. Cholelithiasis Medications Administered ER medications given: Code Status & VTE Plan Code Status DNR - all of the treatment outside of a cardiac arrest VTE Prophylaxis Plan VTE Prophylaxis will be ordered: Yes Reason for no VTE drug order: Treatment not indicated PG Care Time/CCT Total # of Minutes Spent Total Time Spent with Patient: Total time spent is greater than 50% in coordination of care (as documented) at patient's floor/unit and/or counseling patient: Coding Level of Care Code 46645 Initial Inpt Care Lvl 3 Diagnoses Small bowel obstruction K56.609 Macrocytosis D75.89 Coronary artery disease I25.10 Hyperlipidemia E78.5 ICD (implantable cardioverter-defibrillator) in place Z95.810 Hypothyroidism E03.9 DVT prophylaxis Z29.9
--- NOTE | 2020-12-27 17:56 | XRay Report ---
XR KUB/Abdomen 1 view CLINICAL HISTORY: Nasogastric tube placement COMPARISON STUDY: No previous studies for comparison. FINDINGS: There is an enteric tube positioned with its tip in the stomach. There is made of mild card iac enlargement. Is a left subclavian pacer/defibrillator present. IMPRESSION: The recently placed nasogastric tube is positioned with its tip in the stomach. ACT 112: Negative or not required by law. Electronically signed by: Mark Iqbal M.D. 12/27/2020 5:55 PM
[2020-12-27] MEDS ORDERED: ACETAMINOPHEN 1,000 MG/100 ML VIAL IV PRN (20:00)
[2020-12-27] MEDS ORDERED: PANTOprazole 40 MG in SYRINGE 0 ML IV ONE (20:00)
[2020-12-27] MEDS: RANOLAZINE 500 MG ER TAB PO SCH (20:42)
[2020-12-27] MEDS: METOPROLOL SUCC 50MG EXT REL TAB PO SCH (20:42)
--- NOTE | 2020-12-27 21:52 | Electrocardiogram Report ---
Test Reason : Blood Pressure : / mmHG Vent. Rate : 065 BPM Atrial Rate : 065 BPM P-R Int : 246 ms QRS Dur : 126 ms QT Int : 418 ms P-R-T Axes : 041 023 -19 degrees QTc Int : 434 ms Sinus rhythm with 1st degree A-V block and intermittent atrial pacing Non-specific intra-ventricular conduction block Nonspecific T wave abnormality Abnormal ECG When compared with ECG of 08-JUL-2019 16:09, Sinus rhythm has replaced is now intermittently present Confirmed by Brayan Kaur ([id number]) on 12/27/2020 9:52:00 PM Referred By: Confirmed By:Brayan Kaur
[2020-12-27] MEDS: LACTATED RINGER'S 1,000 ML IV SCH (23:18)
--- NOTE | 2020-12-28 06:57 | Surgery Consultation ---
Date of Consultation December 28, 2020 Assessment & Plan (1) Small bowel obstruction: pt is a 85 year-old male who was admitted to hospital for SBO, IMP: SBO, Plan, no Emergent surgery indication now, pt passed BM today, continue conservative treatment, NPO, IV fluid, NG tube, KUB this morning, repeat labs in am, pt agrees with the treatment plan, I answered all questions, will F/U Present on Admission?: Yes History of Present Illness Attending Physician: Ulysses Andrews MD CHIEF COMPLAINT: Abdominal pain HISTORY OF PRESENT ILLNESS: The patient is an 85-year-old male presents to the ER with 3 days of colicky diffuse abdominal pain. The patient states eating makes things worse. He feels more bloated. The pain has been as bad as a 7/10 although right now, he does not have any pain. There has been no nausea or vomiting. No fever, no diarrhea. No cough or cold or congestion. No chest pain. No urinary complaints. Patient has not had any sick contacts, he has not eaten any food that he would think is responsible. Patient states he has not ever felt this way before. I ( Huang Aguirre MD ) got a call for consult SBO, I reviewed pt's H/P, labs, CT scan with pt, pt feels better, passed BM this morning, NG tube- 800ml, REVIEW OF SYSTEMS: See HPI for pertinent positives and negatives. A total of ten systems were reviewed and were otherwise negative. PMHx/PSHx: See Below SOCIAL HISTORY: See Below. Allergies Allergy/AdvReac Type Severity Reaction Status Date / Time No Known Drug Allergies Allergy Unknown Verified 12/27/20 16:22 Home Medications Medication Instructions Recorded Confirmed Type aspirin 81 mg tablet 81 mg PO DAILY tab 06/02/19 12/27/20 History nitroglycerin 0.4 mg sublingual 0.4 mg SL Q5M PRN #25 tab 06/02/19 12/27/20 History tablet ascorbic acid (vitamin C) [Vitamin 250 mg PO DAILY 07/08/19 12/27/20 History C] multivitamin 1 cap PO DAILY 07/08/19 12/27/20 History ranolazine 500 mg tablet,extended 500 mg PO BID #180 tab 01/19/20 12/27/20 Rx release,12 hr allopurinol 300 mg tablet 300 mg PO DAILY #90 tab 07/05/20 12/27/20 Rx clopidogrel 75 mg tablet 75 mg PO DAILY 07/19/20 12/27/20 History levothyroxine 100 mcg capsule 100 mcg PO DAILY 07/19/20 12/27/20 History omeprazole 20 mg capsule,delayed 20 mg PO DAILY #30 cap 08/02/20 12/27/20 Rx release simvastatin 80 mg tablet 40 mg PO DAILY #45 tab 09/13/20 12/27/20 Rx metoprolol succinate 100 mg 100 mg PO BID #180 tab 10/18/20 12/27/20 Rx tablet,extended release 24 hr Past Med/Surg History Medical History (Updated 12/27/20 @ 18:58 by Ulysses Andrews MD) Congenital heart disease Hyperlipidemia Hypothyroidism ICD (implantable cardioverter-defibrillator) in place Myocardial Infarction Ventricular tachycardia Surgical History (Updated 12/27/20 @ 16:48 by Ulysses Andrews MD) History of heart artery stent 04/01/20 at [facility] [place] History of implantable cardioverter-defibrillator (ICD) placement Family History (Updated 01/08/20 @ 13:25 by Janay Riojas) Brother Hx of CABG Sister Myocardial infarction Social History Smoking Status: Never smoker Second Hand Exposure: No; Hx Alcohol Use: No Hx Substance Use: No Preferred Language: Wolof Communication Ability: Effective Finish Molder Required: No Beliefs That Will Affect Care: None Current Living Situation: Spouse 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 No acute findings. CT abd pelvis IV con only IMPRESSION: 1. Mid small bowel obstruction. Small amount of associated mesenteric fluid. No pneumatosis or portal venous gas identified 2. Cholelithiasis Allergies Allergy/AdvReac Type Severity Reaction Status Date / Time No Known Drug Allergies Allergy Unknown Verified 12/27/20 16:22 Home Medications Medication Instructions Recorded Confirmed Type aspirin 81 mg tablet 81 mg PO DAILY tab 06/02/19 12/27/20 History nitroglycerin 0.4 mg sublingual 0.4 mg SL Q5M PRN #25 tab 06/02/19 12/27/20 History tablet ascorbic acid (vitamin C) [Vitamin 250 mg PO DAILY 07/08/19 12/27/20 History C] multivitamin 1 cap PO DAILY 07/08/19 12/27/20 History ranolazine 500 mg tablet,extended 500 mg PO BID #180 tab 01/19/20 12/27/20 Rx release,12 hr allopurinol 300 mg tablet 300 mg PO DAILY #90 tab 07/05/20 12/27/20 Rx clopidogrel 75 mg tablet 75 mg PO DAILY 07/19/20 12/27/20 History levothyroxine 100 mcg capsule 100 mcg PO DAILY 07/19/20 12/27/20 History omeprazole 20 mg capsule,delayed 20 mg PO DAILY #30 cap 08/02/20 12/27/20 Rx release simvastatin 80 mg tablet 40 mg PO DAILY #45 tab 09/13/20 12/27/20 Rx metoprolol succinate 100 mg 100 mg PO BID #180 tab 10/18/20 12/27/20 Rx tablet,extended release 24 hr Patient History Medical History (Updated 12/27/20 @ 18:58 by Ulysses Andrews MD) Congenital heart disease Hyperlipidemia Hypothyroidism ICD (implantable cardioverter-defibrillator) in place Myocardial Infarction Ventricular tachycardia Surgical History (Updated 12/27/20 @ 16:48 by Ulysses Andrews MD) History of heart artery stent 04/01/20 at [facility] [place] History of implantable cardioverter-defibrillator (ICD) placement Family History (Updated 01/08/20 @ 13:25 by Janay Riojas) Brother Hx of CABG Sister Myocardial infarction Social History Smoking Status: Never smoker Second Hand Exposure: No; Hx Alcohol Use: Yes Alcohol type: beer Hx Substance Use: No Preferred Language: Wolof Communication Ability: Effective Finish Molder Required: No Beliefs That Will Affect Care: None Current Living Situation: Spouse 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 Feels Safe at Home: Yes Assistive Devices: Glasses Review of Systems Review of Systems: All systems reviewed & are unremarkable except as noted in HPI & below Constitutional: as per Subjective / HPI Eyes: as per Subjective / HPI Ear, Nose, Mouth, Throat: as per Subjective / HPI Respiratory: as per Subjective / HPI Cardiovascular: as per Subjective / HPI Additional Comments: CAD, cardiac stents, cardiomyopathy, ICD, Gastrointestinal: as per Subjective / HPI Genitourinary: + as per Subjective / HPI Musculoskeletal: as per Subjective / HPI Integumentary: as per Subjective / HPI Neurologic: as per Subjective / HPI Psychiatric: as per Subjective / HPI Endocrine: as per Subjective / HPI hypothyroidism Hematologic / Lymphatic: as per Subjective / HPI Physical Exam Constitutional: WD/WN, vitals as above well developed and well nourished Eyes: PERRL, conjunctivae normal, anicteric sclerae ENMT: external ear and nose normal, oropharynx normal Neck: trachea midline, no thyromegaly Respiratory: normal respiratory effort, lungs clear to auscultation normal respiratory effort Cardiovascular: RRR, no murmur, no edema Gastrointestinal (Abdomen): normal bowel sounds, soft, nontender, no hepatosplenomegaly Percussion/Palpation: abdomen soft no significant tenderness, no rebound pain, BS + Musculoskeletal: no cyanosis or clubbing, extremities motor strength 5/5 Skin: no rashes, warm and dry Neurologic: awake Psychiatric: Orientation: alert and oriented x 3 Results & Data ([facility]) Vital Signs (Past 12 Hours) Vital Signs Temp Pulse Pulse Resp BP BP Pulse Ox 12/28/20 05:00 36.7 C 72 16 110/71 94 12/28/20 02:56 37.2 C 87 20 143/78 H 95 12/27/20 23:19 37.5 C 72 18 146/79 H 96 12/27/20 21:26 36.8 C 73 16 128/73 98 12/27/20 19:26 70 16 140/80 98 Laboratory Results Abnormal lab results 12/27/20 12/27/20 Range/Units 14:07 14:07 RBC 3.42 L (4.7-6.1) M/uL Hgb 13.4 L (14.0-18.0) g/dL Hct 37.3 L (42-52) % MCV 109.1 H (80-100) fL MCH 39.2 H (25-34) pg RDW Std Deviation 54.1 H (36.4-46.3) fL Neut # (Auto) 7.69 H (1.4-6.5) K/uL Lymph # (Auto) 1.01 L (1.2-3.4) K/uL Immature Gran # (Auto) 0.03 H (0.00-0.02) K/uL BUN 23 H (7-18) mg/dl Creatinine 1.54 H (0.6-1.4) mg/dl Glucose 124 H (70-99) mg/dl AST 13 L (15-37) U/L Lipase 48 L (73-393) U/L Diagnostic Findings CT abd pelvis IV con only CLINICAL HISTORY: Abdominal pain COMPARISON STUDY: None. TECHNIQUE: The patient was scanned in a dynamic helical fashion during intravenous administration of 94 cc of Optiray 320 A dose lowering technique was utilized adhering to the principles of ALARA. CT DOSE: 468.32 mGy.cm FINDINGS: Lower chest: There are mild dependent atelectatic changes. There is a calcified left lower lobe granuloma. Liver: The contrast-enhanced liver is normal in size, contour, and attenuation. There is no intrahepatic biliary ductal dilatation. The hepatic veins and portal veins are patent. Gallbladder: Cholelithiasis Spleen: Normal in size and attenuation. Pancreas: Unremarkable. Adrenal glands: Unremarkable. Kidneys: There is a 12 mm left renal cortical cyst. There is no hydronephrosis. Bowel: There is no evidence of acute diverticulitis. There are mildly dilated proximal and mid small bowel loops with multiple air-fluid levels. The distal small bowel is of normal caliber. The findings are indicative of a small bowel obstruction. There is a small amount of associated mesenteric fluid. No pneumatosis is visualized. There is no portal venous gas. Peritoneum: There is minimal ascites. No free intraperitoneal air is visualized. There are fat-containing inguinal hernias Vasculature: The abdominal aorta is normal in course and caliber. Adenopathy: None. Pelvic viscera: There is mild prostatomegaly Skeletal structures: No destructive osseous lesions are seen.
[2020-12-28] MEDS: LACTATED RINGER'S 1,000 ML IV SCH ×2 (07:07→14:27)
--- NOTE | 2020-12-28 08:24 | XRay Report ---
KUB HISTORY: Small bowel obstruction. Follow-up. COMPARISON: KUB 12/27/2020. FINDINGS: A nasogastric tube terminates in the stomach. Cholelithiasis is again noted. There are few mildly dilated gas-filled loops of small bowel within the abdomen. This remains unchanged. There is g as seen throughout the normal caliber colon. Therefore, these findings favor a persistent partial sma ll bowel obstruction. No renal calculi. No ureteral calculi. No pneumoperitoneum or pneumatosis. Res idual contrast within the bladder due to the prior CT examination. IMPRESSION: 1. Persistent partial small bowel obstruction pattern. 2. Nasogastric tube terminates in the stomach. 3. Cholelithiasis. ACT 112: Negative or not required by law. Electronically signed by: Steve Levy M.D. 12/28/2020 8:22 AM
[2020-12-28] MEDS: CLOPIDOGREL BISULFATE 75 MG TAB PO SCH (08:25)
[2020-12-28] MEDS: allopurinoL 300 MG TAB PO SCH (08:25)
[2020-12-28] MEDS: METOPROLOL SUCC 50MG EXT REL TAB PO SCH ×2 (08:25→20:21)
[2020-12-28] MEDS: ASPIRIN 81 MG ECTAB PO SCH (08:25)
[2020-12-28] MEDS: RANOLAZINE 500 MG ER TAB PO SCH ×2 (08:25→20:21)
[2020-12-28 08:58] LABS: Basophils # (auto) 0.02 K/uL (0-0.2); Basophils % (auto) 0.2 %; Eosinophils # (auto) 0.08 K/uL (0-0.5); Hematocrit (blood only) 35.6 % (42-52); Hemoglobin 12.3 g/dL (14.0-18.0); Immature Granulocytes # (auto) 0.02 K/uL (0.00-0.02); Immature Granulocytes % (auto) 0.2 %; Lymphocytes # (auto) 1.11 K/uL (1.2-3.4); Lymphocytes % (auto) 13.4 %; Mean Corpuscular Hemoglobin 38.1 pg (25-34); Mean Corpuscular Hgb Conc 34.6 g/dL (32-36); Mean Corpuscular Volume 110.2 fL (80-100); Mean Platelet Volume 9.2 fL (7.4-10.4); Monocytes # (auto) 0.73 K/uL (0.11-0.59); Monocytes % (auto) 8.8 %; Neutrophils # (auto) 6.33 K/uL (1.4-6.5); Neutrophils % (auto) 76.4 %; Platelet Count 220 K/uL (130-400); RDW Coefficient of Variation 13.8 % (11.5-14.5); RDW Standard Deviation 55.2 fL (36.4-46.3); Red Blood Count 3.23 M/uL (4.7-6.1); Reticulocyte % 1.8 % (0.5-2.0); Reticulocytes # 0.06 10^6/uL (0.02-0.10); White Blood Count 8.29 K/uL (4.8-10.8)
[2020-12-28 09:29] LABS: Macrocytosis Present
[2020-12-28 09:32] LABS: Albumin Level 3.3 gm/dl (3.4-5.0); BUN Creatinine Ratio 13.7 (10-20); Calcium 9.5 mg/dl (8.5-10.1); Creatinine Clr Calc Pharmacy 36.9 ml/min; Est GFR (African American) 46.2; Est GFR (Non-African American) 39.9; Potassium 3.8 mmol/L (3.5-5.1)
[2020-12-28 09:35] LABS: Albumin Globulin Ratio 0.9 (0.9-2); Bilirubin,Total 0.8 mg/dl (0.2-1); Globulin 3.6 gm/dl (2.5-4.0); Total Protein 6.9 gm/dl (6.4-8.2)
[2020-12-28 10:04] LABS: Folate (Folic Acid) > 20.00 ng/ml (>5.38); Vitamin B12 744 pg/ml (193-986)
[2020-12-28] MEDS: PANTOprazole 40 MG in SYRINGE 0 ML IV SCH (11:29)
--- NOTE | 2020-12-28 15:24 | Hospitalist Progress Note ---
Date of Service December 28, 2020 Assessment & Plan (1) Small bowel obstruction: KUB this morning with persistent dilated loops of small bowel he had three liquid BM this morning, + flatus continue NGT on low intermittent suction. NPO, IV fluids appreciate surgery consultation K is 3.8, WBC normal repeat KUB in AM, continue to monitor bowel function (2) Macrocytosis: Without significant anemia. Appears to be stable however abnormality points towards hematological malignancy possibly as a course of small bowel obstruction. B12, folate both normal reticulocyte count normal appreciate peripheral smear review from pathology, no signs of MDS would continue to monitor as outpatient, consider referral to hematology on routine basis (3) Coronary artery disease: Notably complex history with x2 drug-eluting stent placed within the last 1 year. Despite small bowel obstruction we will continue aspirin and clopidogrel since a stent was placed within the last year. Continue ranolazine 500 mg p.o. twice daily to avoid anginal symptoms. Continue metoprolol succinate 100 mg p.o. twice daily to avoid rebound tachycardia. Restart simvastatin 40 mg p.o. daily once small bowel obstruction is resolving. (4) Hyperlipidemia: Restart simvastatin 40 mg p.o. daily as above once small bowel obstruction resolving. (5) ICD (implantable cardioverter-defibrillator) in place: Noted (6) Hypothyroidism: TSH WNL October 2020. Restart on levothyroxine 100 mcg p.o. daily once small bowel obstruction resolving (7) DVT prophylaxis: SCDs Admission and Anticipated Discharge Date Admission Date: December 27, 2020 Subjective patient says he is feeling better, less abdominal pain and distension NGT is draining bilious fluid, no blood he says he has had 3 liquid stools today, very dark no history of dark stools, no known h/o GI bleeding, Hb is stable at 12 appreciate surgery consultation, continue NGT, check KUB tomorrow, await further bowel function WBC normal, Cr 1.57, K3.8 his says that he has had an EGD in the past as well as colonoscopy, about 10 years ago, was told he would not need further screening scopes cannot find these in our records Review of Systems Review of Systems: All systems reviewed & are unremarkable except as noted in Subjective Constitutional: no fever, no chills, no sweats, no fatigue and no weakness Respiratory: no cough and no dyspnea Cardiovascular: no chest pain, no palpitations, no syncope and no edema Gastrointestinal: + abdominal pain and + diarrhea/loose stools (dark); no nausea, no vomiting and no constipation Musculoskeletal: no back pain and no joint pain Physical Exam Constitutional: WD/WN, vitals as above no acute distress Neck: trachea midline, no thyromegaly Respiratory: normal respiratory effort, lungs clear to auscultation Cardiovascular: RRR, no murmur, no edema Gastrointestinal (Abdomen): Inspection/Auscultation: + abdomen distended and normal bowel sounds Percussion/Palpation: abdomen soft; abdomen nontender, no guarding, abdomen not rigid, no hernia and no ascites Musculoskeletal: no cyanosis or clubbing, extremities motor strength 5/5 Skin: no rashes, warm and dry Neurologic: patellar DTR's 2+ bilat, sensation intact and PERRL, EOMI, accommodation nl, no face palsy, no dysarthria Psychiatric: A+Ox3, euthymic affect Lymphatic: no cervical or axillary lymphadenopathy Results & Data Results & Data ([facility]) Vital Signs (Past 12 Hours) Vital Signs Temp Pulse Resp BP Pulse Ox 12/28/20 15:00 37.2 C 62 18 110/66 93 12/28/20 11:00 36.8 C 61 20 120/65 93 12/28/20 07:00 36.2 C L 75 18 119/66 94 12/28/20 05:00 36.7 C 72 16 110/71 94 Laboratory Results Laboratory Results - last 24 hr 12/27/20 12/27/20 12/27/20 14:07 16:46 16:46 WBC RBC Hgb Hct MCV MCH MCHC RDW Std Deviation RDW Coeff of Karla Plt Count MPV Immature Gran % (Auto) Neut % (Auto) Lymph % (Auto) Mcnairy % (Auto) Eos % (Auto) Baso % (Auto) Reticulocyte % (Auto) Neut # (Auto) Lymph # (Auto) Mcnairy # (Auto) Eos # (Auto) Baso # (Auto) Reticulocyte # Immature Gran # (Auto) Macrocytosis Peripher Smr Path Cons Sodium 139 Potassium 4.1 Chloride 107 Carbon Dioxide 29 Anion Gap 3.0 BUN 23 H Creatinine 1.54 H Est Cr Clr Drug Dosing 37.7 Est GFR ( Amer) 47.3 Est GFR (Non-Af Amer) 40.8 BUN/Creatinine Ratio 15.2 Glucose 124 H Calcium 9.2 Total Bilirubin 0.7 AST 13 L ALT 18 Alkaline Phosphatase 68 Lactate Dehydrogenase Troponin I < 0.015 Total Protein 7.6 Albumin 3.6 Globulin 4.0 Albumin/Globulin Ratio 0.9 Lipase 48 L Vitamin B12 Folate COVID-19 Eval [facility] SARS-CoV-2, RNA, NAAT NEGATIVE 12/28/20 12/28/20 12/28/20 08:44 08:44 08:44 WBC 8.29 RBC 3.23 L Hgb 12.3 L Hct 35.6 L MCV 110.2 H MCH 38.1 H MCHC 34.6 RDW Std Deviation 55.2 H RDW Coeff of Karla 13.8 Plt Count 220 MPV 9.2 Immature Gran % (Auto) 0.2 Neut % (Auto) 76.4 Lymph % (Auto) 13.4 Mcnairy % (Auto) 8.8 Eos % (Auto) 1.0 Baso % (Auto) 0.2 Reticulocyte % (Auto) 1.8 Neut # (Auto) 6.33 Lymph # (Auto) 1.11 L Mcnairy # (Auto) 0.73 H Eos # (Auto) 0.08 Baso # (Auto) 0.02 Reticulocyte # 0.06 Immature Gran # (Auto) 0.02 Macrocytosis Present Peripher Smr Path Cons Sodium 140 Potassium 3.8 Chloride 108 H Carbon Dioxide 25 Anion Gap 7.0 BUN 22 H Creatinine 1.57 H Est Cr Clr Drug Dosing 36.9 Est GFR ( Amer) 46.2 Est GFR (Non-Af Amer) 39.9 BUN/Creatinine Ratio 13.7 Glucose 108 H Calcium 9.5 Total Bilirubin 0.8 AST 12 L ALT 14 Alkaline Phosphatase 61 Lactate Dehydrogenase 138 Troponin I Total Protein 6.9 Albumin 3.3 L Globulin 3.6 Albumin/Globulin Ratio 0.9 Lipase Vitamin B12 Folate COVID-19 Eval Order SARS-CoV-2, RNA, NAAT 12/28/20 08:44 WBC RBC Hgb Hct MCV MCH MCHC RDW Std Deviation RDW Coeff of Karla Plt Count MPV Immature Gran % (Auto) Neut % (Auto) Lymph % (Auto) Mcnairy % (Auto) Eos % (Auto) Baso % (Auto) Reticulocyte % (Auto) Neut # (Auto) Lymph # (Auto) Mcnairy # (Auto) Eos # (Auto) Baso # (Auto) Reticulocyte # Immature Gran # (Auto) Macrocytosis Peripher Smr Path Cons Sodium Potassium Chloride Carbon Dioxide Anion Gap BUN Creatinine Est Cr Clr Drug Dosing Est GFR ( Amer) Est GFR (Non-Af Amer) BUN/Creatinine Ratio Glucose Calcium Total Bilirubin AST ALT Alkaline Phosphatase Lactate Dehydrogenase Troponin I Total Protein Albumin Globulin Albumin/Globulin Ratio Lipase Vitamin B12 744 Folate > 20.00 COVID-19 Eval Order SARS-CoV-2, RNA, NAAT Diagnostic Findings KUB HISTORY: Small bowel obstruction. Follow-up. COMPARISON: KUB 12/27/2020. FINDINGS: A nasogastric tube terminates in the stomach. Cholelithiasis is again noted. There are few mildly dilated gas-filled loops of small bowel within the abdomen. This remains unchanged. There is gas seen throughout the normal caliber colon. Therefore, these findings favor a persistent partial small bowel obstruction. No renal calculi. No ureteral calculi. No pneumoperitoneum or pneumatosis. Residual contrast within the bladder due to the prior CT examination. IMPRESSION: 1. Persistent partial small bowel obstruction pattern. 2. Nasogastric tube terminates in the stomach. 3. Cholelithiasis. Medications Administered Current Inpatient Medications Allopurinol (Allopurinol 300 Mg Tab) 300 mg PO DAILY [facility] Stop: 01/27/21 08:59 Last Admin: 12/28/20 08:25 Dose: 300 mg Documented by: Aspirin (Aspirin 81 Mg Ectab) 81 mg PO DAILY [facility] Stop: 01/27/21 08:59 Last Admin: 12/28/20 08:25 Dose: 81 mg Documented by: Clopidogrel Bisulfate (Clopidogrel Bisulfate 75 Mg Tab) 75 mg PO DAILY [facility] Stop: 01/27/21 08:59 Last Admin: 12/28/20 08:25 Dose: 75 mg Documented by: Pantoprazole Sodium 40 mg/ (Syringe) 10 mls @ 5 mls/min IV DAILY@1100 [facility] Stop: 01/27/21 10:59 Last Admin: 12/28/20 11:29 Dose: 5 mls/min Documented by: Acetaminophen (Ofirmev) 1,000 mg in 100 mls @ 400 mls/hr IV Q8H PRN PRN Reason: Pain or Fever Stop: 12/30/20 19:59 Lactated Ringer's (Lr) 1,000 mls @ 125 mls/hr IV .Q8H [facility] Stop: 01/26/21 22:59 Last Admin: 12/28/20 14:27 Dose: 125 mls/hr Documented by: Metoprolol Succinate (Metoprolol Succ 50mg Ext Rel Tab) 100 mg PO BID [facility] Stop: 01/26/21 20:59 Last Admin: 12/28/20 08:25 Dose: 100 mg Documented by: Ranolazine (Ranolazine 500 Mg Er Tab) 500 mg PO BID [facility] Stop: 01/26/21 20:59 Last Admin: 12/28/20 08:25 Dose: 500 mg Documented by: PG Care Time/CCT Total # of Minutes Spent Total Time Spent with Patient: Total time spent is greater than 50% in coordination of care (as documented) at patient's floor/unit and/or counseling patient: Coding Level of Care Code 18148 Subseq Hosp Care Lvl 2 Diagnoses Small bowel obstruction K56.609 Macrocytosis D75.89 Coronary artery disease I25.10 Hyperlipidemia E78.5 ICD (implantable cardioverter-defibrillator) in place Z95.810 Hypothyroidism E03.9 DVT prophylaxis Z29.9
[2020-12-29] MEDS: LACTATED RINGER'S 1,000 ML IV SCH ×2 (00:54→13:09)
[2020-12-29 06:56] LABS: Basophils # (auto) 0.01 K/uL (0-0.2); Basophils % (auto) 0.2 %; Eosinophils # (auto) 0.13 K/uL (0-0.5); Hematocrit (blood only) 31.1 % (42-52); Hemoglobin 10.9 g/dL (14.0-18.0); Immature Granulocytes # (auto) 0.01 K/uL (0.00-0.02); Immature Granulocytes % (auto) 0.2 %; Lymphocytes % (auto) 18.4 %; Mean Corpuscular Hemoglobin 38.2 pg (25-34); Mean Corpuscular Volume 109.1 fL (80-100); Mean Platelet Volume 9.2 fL (7.4-10.4); Monocytes % (auto) 7.7 %; Neutrophils # (auto) 4.66 K/uL (1.4-6.5); Neutrophils % (auto) 71.5 %; Platelet Count 225 K/uL (130-400); RDW Coefficient of Variation 13.7 % (11.5-14.5); RDW Standard Deviation 55.2 fL (36.4-46.3); Red Blood Count 2.85 M/uL (4.7-6.1); White Blood Count 6.51 K/uL (4.8-10.8)
[2020-12-29 07:27] LABS: BUN Creatinine Ratio 16.8 (10-20); Calcium 8.4 mg/dl (8.5-10.1); Creatinine Clr Calc Pharmacy 43.1 ml/min; Est GFR (Non-African American) 48.3; Potassium 3.9 mmol/L (3.5-5.1)
[2020-12-29] MEDS: METOPROLOL SUCC 50MG EXT REL TAB PO SCH ×2 (08:27→20:25)
[2020-12-29] MEDS: RANOLAZINE 500 MG ER TAB PO SCH ×2 (08:27→20:25)
[2020-12-29] MEDS: allopurinoL 300 MG TAB PO SCH (08:28)
[2020-12-29] MEDS: CLOPIDOGREL BISULFATE 75 MG TAB PO SCH (08:28)
[2020-12-29] MEDS: ASPIRIN 81 MG ECTAB PO SCH (08:28)
--- NOTE | 2020-12-29 08:41 | XRay Report ---
XR KUB/Abdomen 1 view CLINICAL HISTORY: Small bowel obstruction COMPARISON STUDY: 12/28/2020 FINDINGS: There is a nasogastric tube with its tip projected over the gastric cardia. There is decrea sing small bowel dilatation. There is gas within nondilated colon. There are right upper quadrant sherri cifications suspicious for cholelithiasis IMPRESSION: 1. Decreasing small bowel distention 2. Cholelithiasis ACT 112: Negative or not required by law. Electronically signed by: Mark Iqbal M.D. 12/29/2020 8:40 AM
--- NOTE | 2020-12-29 10:21 | Hospitalist Progress Note ---
Date of Service December 29, 2020 Assessment & Plan (1) Small bowel obstruction: KUB this morning with less distension, air in colon minimal output from NGT this morning, yellow fluid he had three liquid BM in the morning on 12/28, + flatus will clamp NGT, have him ambulate in halls, monitor for flatus, bowel movement have nurse reconnect NGT to suction in 4 hours NPO, IV fluids appreciate surgery consultation K is 3.9, WBC normal (2) Anemia: Hb down to 10.9 from 13 on admission, he reported dark/black stools yesterday monitor for further BM and send for occult blood testing see macrocytosis below (3) Macrocytosis: Hb 10.9 this AM Appears to be stable however abnormality points towards hematological malignancy possibly as a course of small bowel obstruction. B12, folate both normal reticulocyte count normal appreciate peripheral smear review from pathology, no signs of MDS would continue to monitor as outpatient, consider referral to hematology on routine basis (4) Coronary artery disease: Notably complex history with x2 drug-eluting stent placed within the last 1 year. Despite small bowel obstruction we will continue aspirin and clopidogrel since a stent was placed within the last year. Continue ranolazine 500 mg p.o. twice daily to avoid anginal symptoms. Continue metoprolol succinate 100 mg p.o. twice daily to avoid rebound tachycardia. Restart simvastatin 40 mg p.o. daily once small bowel obstruction is resolving. (5) Hyperlipidemia: Restart simvastatin 40 mg p.o. daily as above once small bowel obstruction resolving. (6) ICD (implantable cardioverter-defibrillator) in place: Noted (7) Hypothyroidism: TSH WNL October 2020. Restart on levothyroxine 100 mcg p.o. daily once small bowel obstruction resolving (8) DVT prophylaxis: SCDs (9) CKD (chronic kidney disease), stage III: Cr is stable at 1.34 electrolytes stable Admission and Anticipated Discharge Date Admission Date: December 27, 2020 Subjective patient is feeling better, no BM this morning, no flatus KUB with less distension, no output from NGT will clamp NGT and have him ambulate Hb is down to 10.9, told RN to get a stool sample for occult blood if he moves bowels again Cr is stable, K is normal no fever/chills, no chest pain, no dyspnea, no cough, no rash, no edema Review of Systems Review of Systems: All systems reviewed & are unremarkable except as noted in Subjective Gastrointestinal: + constipation (obstipation); no abdominal pain, no nausea, no vomiting and no diarrhea/loose stools Physical Exam Constitutional: WD/WN, vitals as above no acute distress Neck: trachea midline, no thyromegaly Respiratory: normal respiratory effort, lungs clear to auscultation Cardiovascular: RRR, no murmur, no edema Gastrointestinal (Abdomen): Inspection/Auscultation: + abdomen distended and normal bowel sounds Percussion/Palpation: abdomen soft; abdomen nontender, no guarding, abdomen not rigid, no hernia and no ascites Musculoskeletal: no cyanosis or clubbing, extremities motor strength 5/5 Skin: no rashes, warm and dry Neurologic: patellar DTR's 2+ bilat, sensation intact and PERRL, EOMI, accommodation nl, no face palsy, no dysarthria Psychiatric: A+Ox3, euthymic affect Lymphatic: no cervical or axillary lymphadenopathy Results & Data Results & Data ([facility]) Vital Signs (Past 12 Hours) Vital Signs Temp Pulse Resp BP Pulse Ox 12/29/20 07:00 36.7 C 63 20 128/67 95 12/29/20 04:11 37.1 C 61 18 117/63 92 12/28/20 23:43 36.8 C 60 18 119/65 94 Laboratory Results Laboratory Results - last 24 hr 12/28/20 12/29/20 12/29/20 08:44 06:24 06:24 WBC 6.51 RBC 2.85 L Hgb 10.9 L Hct 31.1 L MCV 109.1 H MCH 38.2 H MCHC 35.0 RDW Std Deviation 55.2 H RDW Coeff of Karla 13.7 Plt Count 225 MPV 9.2 Immature Gran % (Auto) 0.2 Neut % (Auto) 71.5 Lymph % (Auto) 18.4 [place] % (Auto) 7.7 Eos % (Auto) 2.0 Baso % (Auto) 0.2 Neut # (Auto) 4.66 Lymph # (Auto) 1.20 [place] # (Auto) 0.50 Eos # (Auto) 0.13 Baso # (Auto) 0.01 Immature Gran # (Auto) 0.01 Peripher Smr Path Cons Sodium 140 Potassium 3.9 Chloride 108 H Carbon Dioxide 27 Anion Gap 5.0 BUN 23 H Creatinine 1.34 Est Cr Clr Drug Dosing 43.1 Est GFR ( Amer) 56.0 Est GFR (Non-Af Amer) 48.3 BUN/Creatinine Ratio 16.8 Glucose 82 Calcium 8.4 L Diagnostic Findings XR KUB/Abdomen 1 view CLINICAL HISTORY: Small bowel obstruction COMPARISON STUDY: 12/28/2020 FINDINGS: There is a nasogastric tube with its tip projected over the gastric cardia. There is decreasing small bowel dilatation. There is gas within nondilated colon. There are right upper quadrant calcifications suspicious for cholelithiasis IMPRESSION: 1. Decreasing small bowel distention 2. Cholelithiasis Medications Administered Current Inpatient Medications Allopurinol (Allopurinol 300 Mg Tab) 300 mg PO DAILY [facility] Stop: 01/27/21 08:59 Last Admin: 12/29/20 08:28 Dose: 300 mg Documented by: Aspirin (Aspirin 81 Mg Ectab) 81 mg PO DAILY [facility] Stop: 01/27/21 08:59 Last Admin: 12/29/20 08:28 Dose: 81 mg Documented by: Clopidogrel Bisulfate (Clopidogrel Bisulfate 75 Mg Tab) 75 mg PO DAILY [facility] Stop: 01/27/21 08:59 Last Admin: 12/29/20 08:28 Dose: 75 mg Documented by: Pantoprazole Sodium 40 mg/ (Syringe) 10 mls @ 5 mls/min IV DAILY@1100 [facility] Stop: 01/27/21 10:59 Last Admin: 12/28/20 11:29 Dose: 5 mls/min Documented by: Acetaminophen (Ofirmev) 1,000 mg in 100 mls @ 400 mls/hr IV Q8H PRN PRN Reason: Pain or Fever Stop: 12/30/20 19:59 Lactated Ringer's (Lr) 1,000 mls @ 80 mls/hr IV .[id number] [facility] Stop: 01/26/21 22:59 Last Admin: 12/29/20 00:54 Dose: 80 mls/hr Documented by: Metoprolol Succinate (Metoprolol Succ 50mg Ext Rel Tab) 100 mg PO BID [facility] Stop: 01/26/21 20:59 Last Admin: 12/29/20 08:27 Dose: 100 mg Documented by: Ranolazine (Ranolazine 500 Mg Er Tab) 500 mg PO BID [facility] Stop: 01/26/21 20:59 Last Admin: 12/29/20 08:27 Dose: 500 mg Documented by: PG Care Time/CCT Total # of Minutes Spent Total Time Spent with Patient: Total time spent is greater than 50% in coordination of care (as documented) at patient's floor/unit and/or counseling patient: Coding Level of Care Code 77422 Subseq Hosp Care Lvl 2 Diagnoses Small bowel obstruction K56.609 Anemia D64.9 Macrocytosis D75.89 Coronary artery disease I25.10 Hyperlipidemia E78.5 ICD (implantable cardioverter-defibrillator) in place Z95.810 Hypothyroidism E03.9 DVT prophylaxis Z29.9 CKD (chronic kidney disease), stage III N18.30
[2020-12-29] MEDS: PANTOprazole 40 MG in SYRINGE 0 ML IV SCH (12:07)
--- NOTE | 2020-12-29 20:15 | Surgery Progress Note ---
Date of Service pt feels better, no abdominal pain, passed some BM, no nausea, no vomiting, no fever, KUB SBO improved December 29, 2020 Assessment & Plan (1) Small bowel obstruction: pt is a 85 year-old male who was admitted to hospital for SBO, IMP: SBO, Plan, no Emergent surgery indication now, pt passed BM today, continue conservative treatment, NPO, IV fluid, NG tube, KUB this morning, repeat labs in am, pt agrees with the treatment plan, I answered all questions, will F/U 12/29/2020 8: 16 PM, F/U SBO, doing better, no abdominal pain keep the ng one more day, possible remove NG tube tomorrow, Will F/U repeat KUB in morning, Admission and Anticipated Discharge Date Admission Date: December 27, 2020 Subjective patient is feeling better, no BM this morning, no flatus KUB with less distension, no output from NGT will clamp NGT and have him ambulate Hb is down to 10.9, told RN to get a stool sample for occult blood if he moves bowels again Cr is stable, K is normal no fever/chills, no chest pain, no dyspnea, no cough, no rash, no edema Review of Systems Constitutional: as per Subjective / HPI Eyes: as per Subjective / HPI Ear, Nose, Mouth, Throat: as per Subjective / HPI Respiratory: as per Subjective / HPI Cardiovascular: as per Subjective / HPI Additional Comments: CAD, cardiac stents, cardiomyopathy, ICD, Gastrointestinal: as per Subjective / HPI Genitourinary: + as per Subjective / HPI Musculoskeletal: as per Subjective / HPI Integumentary: as per Subjective / HPI Neurologic: as per Subjective / HPI Psychiatric: as per Subjective / HPI Endocrine: as per Subjective / HPI hypothyroidism Hematologic / Lymphatic: as per Subjective / HPI Physical Exam Constitutional: WD/WN, vitals as above well developed and well nourished Eyes: PERRL, conjunctivae normal, anicteric sclerae ENMT: external ear and nose normal, oropharynx normal Neck: trachea midline, no thyromegaly Respiratory: normal respiratory effort, lungs clear to auscultation normal respiratory effort Cardiovascular: RRR, no murmur, no edema Gastrointestinal (Abdomen): normal bowel sounds, soft, nontender, no hepatosplenomegaly Percussion/Palpation: abdomen soft Musculoskeletal: no cyanosis or clubbing, extremities motor strength 5/5 Skin: no rashes, warm and dry Neurologic: awake Psychiatric: Orientation: alert and oriented x 3 Results & Data ([facility]) Vital Signs (Past 12 Hours) Vital Signs Temp Pulse Pulse Resp BP Pulse Ox 12/29/20 18:45 36.5 C 64 20 135/73 94 12/29/20 15:17 36.9 C 57 L 18 132/70 92 12/29/20 15:11 72 12/29/20 12:04 36.5 C 61 18 122/72 94 Laboratory Results Abnormal lab results 12/29/20 12/29/20 Range/Units 06:24 06:24 RBC 2.85 L (4.7-6.1) M/uL Hgb 10.9 L (14.0-18.0) g/dL Hct 31.1 L (42-52) % MCV 109.1 H (80-100) fL MCH 38.2 H (25-34) pg RDW Std Deviation 55.2 H (36.4-46.3) fL Chloride 108 H (98-107) mmol/L BUN 23 H (7-18) mg/dl Calcium 8.4 L (8.5-10.1) mg/dl Diagnostic Findings XR KUB/Abdomen 1 view CLINICAL HISTORY: Small bowel obstruction COMPARISON STUDY: 12/28/2020 FINDINGS: There is a nasogastric tube with its tip projected over the gastric cardia. There is decreasing small bowel dilatation. There is gas within nondilated colon. There are right upper quadrant calcifications suspicious for cholelithiasis IMPRESSION: 1. Decreasing small bowel distention 2. Cholelithiasis
[2020-12-30] MEDS: LACTATED RINGER'S 1,000 ML IV SCH (01:11)
[2020-12-30] MEDS: CLOPIDOGREL BISULFATE 75 MG TAB PO SCH (07:49)
[2020-12-30] MEDS: RANOLAZINE 500 MG ER TAB PO SCH ×2 (07:49→20:16)
[2020-12-30] MEDS: METOPROLOL SUCC 50MG EXT REL TAB PO SCH ×2 (07:49→20:16)
[2020-12-30] MEDS: allopurinoL 300 MG TAB PO SCH (07:49)
[2020-12-30] MEDS: ASPIRIN 81 MG ECTAB PO SCH (07:50)
--- NOTE | 2020-12-30 09:01 | XRay Report ---
KUB CLINICAL HISTORY: Bowel obstruction. FINDINGS: 2 AP supine abdominal radiographs are compared to study dated 12/29/2020 and correlated with abdominal CT dated 12/27/2020. An enteric tube is unchanged in position and projects over the stomach . There is no radiographic evidence of bowel obstruction or intraperitoneal free air on these supine images. Calcified gallstones are again seen in the right upper quadrant. The skeletal structures are osteopenic and appear intact. Lumbosacral spondylosis is noted. The heart is enlarged and pacemaker l farrah are partially imaged. IMPRESSION: 1. Nonobstructed abdominal bowel gas pattern. 2. Cholelithiasis. Electronically signed by: Kun Celeste M.D. 12/30/2020 9:00 AM
[2020-12-30 09:44] LABS: Basophils # (auto) 0.01 K/uL (0-0.2); Basophils % (auto) 0.1 %; Eosinophils # (auto) 0.15 K/uL (0-0.5); Eosinophils % (auto) 1.8 %; Hematocrit (blood only) 33.2 % (42-52); Hemoglobin 11.9 g/dL (14.0-18.0); Immature Granulocytes # (auto) 0.03 K/uL (0.00-0.02); Immature Granulocytes % (auto) 0.4 %; Lymphocytes # (auto) 1.02 K/uL (1.2-3.4); Lymphocytes % (auto) 12.4 %; Mean Corpuscular Hemoglobin 38.5 pg (25-34); Mean Corpuscular Hgb Conc 35.8 g/dL (32-36); Mean Corpuscular Volume 107.4 fL (80-100); Mean Platelet Volume 8.8 fL (7.4-10.4); Monocytes # (auto) 0.69 K/uL (0.11-0.59); Monocytes % (auto) 8.4 %; Neutrophils # (auto) 6.35 K/uL (1.4-6.5); Neutrophils % (auto) 76.9 %; Platelet Count 228 K/uL (130-400); RDW Coefficient of Variation 13.4 % (11.5-14.5); RDW Standard Deviation 52.3 fL (36.4-46.3); Red Blood Count 3.09 M/uL (4.7-6.1); White Blood Count 8.25 K/uL (4.8-10.8)
[2020-12-30 10:11] LABS: BUN Creatinine Ratio 15.4 (10-20); Creatinine Clr Calc Pharmacy 41.2 ml/min; Est GFR (African American) 53.1; Est GFR (Non-African American) 45.8; Potassium 3.8 mmol/L (3.5-5.1)
--- NOTE | 2020-12-30 11:13 | Surgery Progress Note ---
Date of Service December 30, 2020 Assessment & Plan (1) Small bowel obstruction: Resolved KUB today showing no signs of obstruction, air in colon No flatus or bowel movement today no n/v abdomen soft Plan: Discontinue NGT Clear liquids ambulate in hallway Continue medical management Dr. Aguirre has seen and examined pt, agrees with above. Admission and Anticipated Discharge Date Admission Date: December 27, 2020 Subjective feeling good no abdominal pain, no nausea or vomiting has not passed gas today, had 3 liquid bowel movements two days ago, nothing yesterday Nurse present in room, unsure of NGT output amounts yesterday, none recorded in computer after clamp trial. 30 cc output throughout the night. Physical Exam Constitutional: WD/WN, vitals as above no acute distress Respiratory: normal respiratory effort; no respiratory distress and no labored breathing Gastrointestinal (Abdomen): Inspection/Auscultation: abdomen normal to inspection; abdomen not distended and + abnormal bowel sounds Percussion/Palpation: abdomen soft; abdomen nontender, no guarding and abdomen not rigid Skin: no rashes, warm and dry Psychiatric: A+Ox3, euthymic affect Results & Data ([facility]) Vital Signs (Past 12 Hours) Vital Signs Temp Pulse Pulse Pulse Resp BP Pulse Ox 12/30/20 11:06 36.5 C 72 20 119/65 94 12/30/20 09:30 66 12/30/20 07:35 68 12/30/20 07:22 36.6 C 59 L 20 115/68 98 12/30/20 03:39 37.0 C 67 18 113/65 94 12/29/20 23:44 37.1 C 74 18 125/71 93 12/29/20 23:25 70 Laboratory Results 12/30/20 12/30/20 Range/Units 09:32 09:32 WBC 8.25 (4.8-10.8) K/uL RBC 3.09 L (4.7-6.1) M/uL Hgb 11.9 L (14.0-18.0) g/dL Hct 33.2 L (42-52) % MCV 107.4 H (80-100) fL MCH 38.5 H (25-34) pg MCHC 35.8 (32-36) g/dL RDW Std Deviation 52.3 H (36.4-46.3) fL RDW Coeff of Karla 13.4 (11.5-14.5) % Plt Count 228 (130-400) K/uL MPV 8.8 (7.4-10.4) fL Immature Gran % (Auto) 0.4 % Neut % (Auto) 76.9 % Lymph % (Auto) 12.4 % [place] % (Auto) 8.4 % Eos % (Auto) 1.8 % Baso % (Auto) 0.1 % Neut # (Auto) 6.35 (1.4-6.5) K/uL Lymph # (Auto) 1.02 L (1.2-3.4) K/uL [place] # (Auto) 0.69 H (0.11-0.59) K/uL Eos # (Auto) 0.15 (0-0.5) K/uL Baso # (Auto) 0.01 (0-0.2) K/uL Immature Gran # (Auto) 0.03 H (0.00-0.02) K/uL Sodium 138 (136-145) mmol/L Potassium 3.8 (3.5-5.1) mmol/L Chloride 105 (98-107) mmol/L Carbon Dioxide 26 (21-32) mmol/L Anion Gap 7.0 (3-11) BUN 22 H (7-18) mg/dl Creatinine 1.40 (0.6-1.4) mg/dl Est Cr Clr Drug Dosing 41.2 ml/min Est GFR ( Amer) 53.1 Est GFR (Non-Af Amer) 45.8 BUN/Creatinine Ratio 15.4 (10-20) Glucose 74 (70-99) mg/dl Calcium 9.0 (8.5-10.1) mg/dl Diagnostic Findings KUB CLINICAL HISTORY: Bowel obstruction. FINDINGS: 2 AP supine abdominal radiographs are compared to study dated 12/29/2020 and correlated with abdominal CT dated 12/27/2020. An enteric tube is unchanged in position and projects over the stomach. There is no radiographic evidence of bowel obstruction or intraperitoneal free air on these supine images. Calcified gallstones are again seen in the right upper quadrant. The skeletal structures are osteopenic and appear intact. Lumbosacral spondylosis is noted. The heart is enlarged and pacemaker leads are partially imaged. IMPRESSION: 1. Nonobstructed abdominal bowel gas pattern. 2. Cholelithiasis.
[2020-12-30] MEDS: PANTOprazole 40 MG in SYRINGE 0 ML IV SCH (11:42)
--- NOTE | 2020-12-30 12:05 | Hospitalist Progress Note ---
Date of Service December 30, 2020 Assessment & Plan (1) Small bowel obstruction: KUB this morning with no signs of obstruction, air in colon will pull NG tube, clear liquid diet, encouraged him to ambulate frequently appreciate surgery consultation K is 3.8, WBC normal (2) Anemia: Hb up to 11.9, no further dark stools monitor for further BM and send for occult blood testing see macrocytosis below (3) Macrocytosis: Hb 11.9 this AM B12, folate both normal reticulocyte count normal appreciate peripheral smear review from pathology, no signs of MDS would continue to monitor as outpatient, consider referral to hematology on routine basis (4) Coronary artery disease: Notably complex history with x2 drug-eluting stent placed within the last 1 year. Despite small bowel obstruction we will continue aspirin and clopidogrel since a stent was placed within the last year. Continue ranolazine 500 mg p.o. twice daily to avoid anginal symptoms. Continue metoprolol succinate 100 mg p.o. twice daily to avoid rebound tachycardia. Restart simvastatin 40 mg p.o. daily once small bowel obstruction is resolving. (5) Hyperlipidemia: Restart simvastatin 40 mg p.o. daily as above once small bowel obstruction resolving. (6) ICD (implantable cardioverter-defibrillator) in place: Noted (7) Hypothyroidism: TSH WNL October 2020. Restart on levothyroxine 100 mcg p.o. daily once small bowel obstruction resolving (8) DVT prophylaxis: SCDs (9) CKD (chronic kidney disease), stage III: Cr is stable at 1.4 electrolytes stable Admission and Anticipated Discharge Date Admission Date: December 27, 2020 Subjective patient doing well, really wants to go home, discussed that he has to pas gas, move his bowels KUB this morning with no signs of obstruction, minimal out from NG tube surgery ordered NG tube pulled, clear liquid diet, can ambulate in the halls abdomen soft, non distended but hypoactive bowel sounds vitals stable, CBC and BMP normal he is hoping to go home tomorrow Review of Systems Review of Systems: All systems reviewed & are unremarkable except as noted in Subjective Respiratory: no cough and no dyspnea Cardiovascular: no chest pain and no edema Gastrointestinal: + constipation (no flatus either); no abdominal pain, no nausea, no vomiting and no diarrhea/loose stools Physical Exam Constitutional: WD/WN, vitals as above no acute distress Neck: trachea midline, no thyromegaly Respiratory: normal respiratory effort, lungs clear to auscultation Cardiovascular: RRR, no murmur, no edema Gastrointestinal (Abdomen): Inspection/Auscultation: + abdomen distended and normal bowel sounds Percussion/Palpation: abdomen soft; abdomen nontender, no guarding, abdomen not rigid, no hernia and no ascites Musculoskeletal: no cyanosis or clubbing, extremities motor strength 5/5 Skin: no rashes, warm and dry Neurologic: patellar DTR's 2+ bilat, sensation intact and PERRL, EOMI, accommodation nl, no face palsy, no dysarthria Psychiatric: A+Ox3, euthymic affect Lymphatic: no cervical or axillary lymphadenopathy Results & Data Results & Data ([facility]) Vital Signs (Past 12 Hours) Vital Signs Temp Pulse Pulse Pulse Resp BP Pulse Ox 12/30/20 11:06 36.5 C 72 20 119/65 94 12/30/20 09:30 66 12/30/20 07:35 68 12/30/20 07:22 36.6 C 59 L 20 115/68 98 12/30/20 03:39 37.0 C 67 18 113/65 94 Laboratory Results Laboratory Results - last 24 hr 12/30/20 12/30/20 09:32 09:32 WBC 8.25 RBC 3.09 L Hgb 11.9 L Hct 33.2 L MCV 107.4 H MCH 38.5 H MCHC 35.8 RDW Std Deviation 52.3 H RDW Coeff of Karla 13.4 Plt Count 228 MPV 8.8 Immature Gran % (Auto) 0.4 Neut % (Auto) 76.9 Lymph % (Auto) 12.4 [place] % (Auto) 8.4 Eos % (Auto) 1.8 Baso % (Auto) 0.1 Neut # (Auto) 6.35 Lymph # (Auto) 1.02 L [place] # (Auto) 0.69 H Eos # (Auto) 0.15 Baso # (Auto) 0.01 Immature Gran # (Auto) 0.03 H Sodium 138 Potassium 3.8 Chloride 105 Carbon Dioxide 26 Anion Gap 7.0 BUN 22 H Creatinine 1.40 Est Cr Clr Drug Dosing 41.2 Est GFR ( Amer) 53.1 Est GFR (Non-Af Amer) 45.8 BUN/Creatinine Ratio 15.4 Glucose 74 Calcium 9.0 Medications Administered Current Inpatient Medications Allopurinol (Allopurinol 300 Mg Tab) 300 mg PO DAILY [facility] Stop: 01/27/21 08:59 Last Admin: 12/30/20 07:49 Dose: 300 mg Documented by: Aspirin (Aspirin 81 Mg Ectab) 81 mg PO DAILY [facility] Stop: 01/27/21 08:59 Last Admin: 12/30/20 07:50 Dose: 81 mg Documented by: Clopidogrel Bisulfate (Clopidogrel Bisulfate 75 Mg Tab) 75 mg PO DAILY [facility] Stop: 01/27/21 08:59 Last Admin: 12/30/20 07:49 Dose: 75 mg Documented by: Pantoprazole Sodium 40 mg/ (Syringe) 10 mls @ 5 mls/min IV DAILY@1100 [facility] Stop: 01/27/21 10:59 Last Admin: 12/30/20 11:42 Dose: 5 mls/min Documented by: Acetaminophen (Ofirmev) 1,000 mg in 100 mls @ 400 mls/hr IV Q8H PRN PRN Reason: Pain or Fever Stop: 12/30/20 19:59 Lactated Ringer's (Lr) 1,000 mls @ 80 mls/hr IV .[id number] [facility] Stop: 01/26/21 22:59 Last Infusion: 12/30/20 09:00 Dose: 0 mls/hr Documented by: Metoprolol Succinate (Metoprolol Succ 50mg Ext Rel Tab) 100 mg PO BID [facility] Stop: 01/26/21 20:59 Last Admin: 12/30/20 07:49 Dose: 100 mg Documented by: Ranolazine (Ranolazine 500 Mg Er Tab) 500 mg PO BID [facility] Stop: 01/26/21 20:59 Last Admin: 12/30/20 07:49 Dose: 500 mg Documented by: PG Care Time/CCT Total # of Minutes Spent Total Time Spent with Patient: Total time spent is greater than 50% in coordination of care (as documented) at patient's floor/unit and/or counseling patient: Coding Level of Care Code 30503 Subseq Hosp Care Lvl 2 Diagnoses Small bowel obstruction K56.609 Anemia D64.9 Macrocytosis D75.89 Coronary artery disease I25.10 Hyperlipidemia E78.5 ICD (implantable cardioverter-defibrillator) in place Z95.810 Hypothyroidism E03.9 DVT prophylaxis Z29.9 CKD (chronic kidney disease), stage III N18.30
[2020-12-31 07:13] LABS: Hemoglobin 12.2 g/dL (14.0-18.0); Mean Corpuscular Hemoglobin 38.2 pg (25-34); Mean Corpuscular Hgb Conc 35.9 g/dL (32-36); Mean Corpuscular Volume 106.6 fL (80-100); Mean Platelet Volume 9.1 fL (7.4-10.4); Platelet Count 249 K/uL (130-400); RDW Coefficient of Variation 13.3 % (11.5-14.5); RDW Standard Deviation 51.5 fL (36.4-46.3); Red Blood Count 3.19 M/uL (4.7-6.1); White Blood Count 8.71 K/uL (4.8-10.8)
[2020-12-31 07:43] LABS: BUN Creatinine Ratio 12.4 (10-20); Calcium 8.7 mg/dl (8.5-10.1); Creatinine Clr Calc Pharmacy 36.2 ml/min; Est GFR (African American) 50.1; Est GFR (Non-African American) 43.2; Potassium 3.9 mmol/L (3.5-5.1)
[2020-12-31] MEDS: RANOLAZINE 500 MG ER TAB PO SCH (07:50)
[2020-12-31] MEDS: METOPROLOL SUCC 50MG EXT REL TAB PO SCH (07:50)
[2020-12-31] MEDS: CLOPIDOGREL BISULFATE 75 MG TAB PO SCH (07:50)
[2020-12-31] MEDS: ASPIRIN 81 MG ECTAB PO SCH (07:50)
[2020-12-31] MEDS: allopurinoL 300 MG TAB PO SCH (07:51)
--- NOTE | 2020-12-31 09:07 | Surgery Progress Note ---
Date of Service December 31, 2020 Assessment & Plan (1) Small bowel obstruction: Resolved + bowel function tolerated clear liquids no abdominal pain Plan: Okay from surgical standpoint for discharge advanced diet to low fiber, recommend low fiber diet for about 1 week and then slowly increase as tolerated F/u in surgical office in 2-[address] Aguirre has seen and examined pt, agrees with above. Admission and Anticipated Discharge Date Admission Date: December 27, 2020 Subjective feeling good had bowel movement this morning, feels gurgling in abdomen no n/v tolerated clear liquids no abdominal pain Physical Exam Constitutional: WD/WN, vitals as above Respiratory: normal respiratory effort; no respiratory distress and no labored breathing Gastrointestinal (Abdomen): Inspection/Auscultation: abdomen normal to insp ection; abdomen not distended Percussion/Palpation: abdomen soft; abdomen nontender, no guarding and abdomen not rigid Skin: no rashes, warm and dry Psychiatric: A+Ox3, euthymic affect Results & Data ([facility]) Vital Signs (Past 12 Hours) Vital Signs Temp Pulse Pulse Pulse Resp BP Pulse Ox 12/31/20 07:45 36.8 C 64 18 125/77 94 12/31/20 07:17 64 12/31/20 03:45 36.4 C L 62 18 101/61 97 12/31/20 00:25 63 12/30/20 23:46 37.0 C 71 18 109/64 94 Laboratory Results 12/31/20 12/31/20 12/30/20 Range/Units 06:55 06:55 09:32 WBC 8.71 (4.8-10.8) K/uL RBC 3.19 L (4.7-6.1) M/uL Hgb 12.2 L (14.0-18.0) g/dL Hct 34.0 L (42-52) % MCV 106.6 H (80-100) fL MCH 38.2 H (25-34) pg MCHC 35.9 (32-36) g/dL RDW Std Deviation 51.5 H (36.4-46.3) fL RDW Coeff of Karla 13.3 (11.5-14.5) % Plt Count 249 (130-400) K/uL MPV 9.1 (7.4-10.4) fL Immature Gran % (Auto) % Neut % (Auto) % Lymph % (Auto) % [place] % (Auto) % Eos % (Auto) % Baso % (Auto) % Neut # (Auto) (1.4-6.5) K/uL Lymph # (Auto) (1.2-3.4) K/uL [place] # (Auto) (0.11-0.59) K/uL Eos # (Auto) (0-0.5) K/uL Baso # (Auto) (0-0.2) K/uL Immature Gran # (Auto) (0.00-0.02) K/uL Sodium 140 138 (136-145) mmol/L Potassium 3.9 3.8 (3.5-5.1) mmol/L Chloride 108 H 105 (98-107) mmol/L Carbon Dioxide 25 26 (21-32) mmol/L Anion Gap 7.0 7.0 (3-11) BUN 18 22 H (7-18) mg/dl Creatinine 1.47 H 1.40 (0.6-1.4) mg/dl Est Cr Clr Drug Dosing 36.2 41.2 ml/min Est GFR ( Amer) 50.1 53.1 Est GFR (Non-Af Amer) 43.2 45.8 BUN/Creatinine Ratio 12.4 15.4 (10-20) Glucose 99 74 (70-99) mg/dl Calcium 8.7 9.0 (8.5-10.1) mg/dl 12/30/20 Range/Units 09:32 WBC 8.25 (4.8-10.8) K/uL RBC 3.09 L (4.7-6.1) M/uL Hgb 11.9 L (14.0-18.0) g/dL Hct 33.2 L (42-52) % MCV 107.4 H (80-100) fL MCH 38.5 H (25-34) pg MCHC 35.8 (32-36) g/dL RDW Std Deviation 52.3 H (36.4-46.3) fL RDW Coeff of Karla 13.4 (11.5-14.5) % Plt Count 228 (130-400) K/uL MPV 8.8 (7.4-10.4) fL Immature Gran % (Auto) 0.4 % Neut % (Auto) 76.9 % Lymph % (Auto) 12.4 % [place] % (Auto) 8.4 % Eos % (Auto) 1.8 % Baso % (Auto) 0.1 % Neut # (Auto) 6.35 (1.4-6.5) K/uL Lymph # (Auto) 1.02 L (1.2-3.4) K/uL [place] # (Auto) 0.69 H (0.11-0.59) K/uL Eos # (Auto) 0.15 (0-0.5) K/uL Baso # (Auto) 0.01 (0-0.2) K/uL Immature Gran # (Auto) 0.03 H (0.00-0.02) K/uL Sodium (136-145) mmol/L Potassium (3.5-5.1) mmol/L Chloride (98-107) mmol/L Carbon Dioxide (21-32) mmol/L Anion Gap (3-11) BUN (7-18) mg/dl Creatinine (0.6-1.4) mg/dl Est Cr Clr Drug Dosing ml/min Est GFR ( Amer) Est GFR (Non-Af Amer) BUN/Creatinine Ratio (10-20) Glucose (70-99) mg/dl Calcium (8.5-10.1) mg/dl
--- NOTE | 2020-12-31 09:46 | Discharge Summary ---
Date of Service December 31, 2020 Admission HPI Per Admitting Provider Yonis Jones is an 85-year-old male who presents to the ER with 3 days of generalized abdominal pain. Slowly progressively worse during this time worse with eating. Associated nausea, no vomiting. No change in diarrhea, constipation, melena or bright red blood in stool. No loss of weight. Last colonoscopy > 10 years ago but no prior polyps found. No prior history of abdominal surgery. Patient with notable history of coronary artery disease and multiple stents placed most recently x2 HELGA to RCA in March 2020. Principal Diagnosis Partial small bowel obstruction Discharge Exam Constitutional WD/WN, vitals as above no acute distress Neck trachea midline, no thyromegaly Respiratory normal respiratory effort, lungs clear to auscultation Cardiovascular RRR, no murmur, no edema Gastrointestinal (Abdomen) Inspection/Auscultation: abdomen normal to inspection and normal bowel sounds; abdomen not distended Percussion/Palpation: abdomen soft; abdomen nontender, no guarding, abdomen not rigid, no hernia and no ascites Musculoskeletal no cyanosis or clubbing, extremities motor strength 5/5 Skin no rashes, warm and dry Neurologic patellar DTR's 2+ bilat, sensation intact and PERRL, EOMI, accommodation nl, no face palsy, no dysarthria Psychiatric A+Ox3, euthymic affect Lymphatic no cervical or axillary lymphadenopathy Discharge Data Allergies Allergy/AdvReac Type Severity Reaction Status Date / Time No Known Drug Allergies Allergy Unknown Verified 12/27/20 16:22 Consultations 12/27/20 16:37 ED Decision to Admit Stat Ordered Studies 12/27/20 15:24 CT abd pelvis IV con only Stat Hospital Course (1) Small bowel obstruction: KUB 12/30 with no signs of obstruction, air in colon NGT pulled 12/30, clear liquid diet, ambulated in the halls had a BM on 12/31, tolerating low fiber diet will discharge to home stay well hydrated, well nourished, low fiber diet for two weeks return to hospital if he has recurrent symptoms of obstruction (2) Anemia: Hb up to 11.9, no further dark stools monitor for further BM and send for occult blood testing see macrocytosis below could consider GI referral and scopes as outpatient but only if he has recurrent symptoms (3) Macrocytosis: Hb 11.9 on 12/30 B12, folate both normal reticulocyte count normal appreciate peripheral smear review from pathology, no signs of MDS would continue to monitor as outpatient, consider referral to hematology on routine basis (4) Coronary artery disease: Notably complex history with x2 drug-eluting stent placed within the last 1 year. Despite small bowel obstruction we will continue aspirin and clopidogrel since a stent was placed within the last year. Continue ranolazine 500 mg p.o. twice daily to avoid anginal symptoms. Continue metoprolol succinate 100 mg p.o. twice daily to avoid rebound tachycardia. Restart simvastatin 40 mg p.o. daily once small bowel obstruction is resolving. (5) Hyperlipidemia: Restart simvastatin 40 mg p.o. daily as above once small bowel obstruction resolving. (6) ICD (implantable cardioverter-defibrillator) in place: Noted (7) Hypothyroidism: TSH WNL October 2020. Restart on levothyroxine 100 mcg p.o. daily once small bowel obstruction resolving (8) DVT prophylaxis: SCDs (9) CKD (chronic kidney disease), stage III: Cr is stable at 1.4 electrolytes stable Total Time Total Time Spent Total Time Spent (In Minutes): 32 Total Time Includes: Examination of the Patient, Discharge Planning, Medication Reconciliation and Communication With Other Providers (general surgery) Discharge Plan Discharge Items Patient Disposition: Home - Self-Care Reason For Visit: SMALL BOWEL OBSTRUCTION Discharge Diagnosis: Partial small bowel obstruction, resolved Condition on Discharge: Good Goals: stay well nourished and well hydrated low fiber diet for 2 weeks Activity: Resume your previous activity Non-emergency contact: Primary Care Provider Call non-emergency contact if: you have any medication questions Follow-up/Referrals: Baldo Morris MD [Primary Care Provider] - Diet: Low Fiber Addtl Attending Provider Instructions: Medications: no changes Small bowel obstruction, partial resolved, stay on low fiber diet for two weeks stay well hydrated, stay active no need to follow up with PCP as the issue is resolved Pending Studies at Discharge: No Stand-Alone Forms: [employer], Smoking Cessation Medications and DC Order Prescriptions: Continued ranolazine 500 mg tablet extended release 12 hr 500 mg PO BID Qty: 180 RF: 3 allopurinol 300 mg tablet 300 mg PO DAILY Qty: 90 RF: 3 omeprazole 20 mg capsule,delayed release(DR/EC) 20 mg PO DAILY Qty: 30 RF: 0 simvastatin 80 mg tablet 40 mg PO DAILY Qty: 45 RF: 3 metoprolol succinate 100 mg tablet extended release 24 hr 100 mg PO BID Qty: 180 RF: 3 aspirin 81 mg tablet 81 mg PO DAILY RF: 0 nitroglycerin 0.4 mg tablet, sublingual 0.4 mg SL Q5M PRN (Reason: Chest Pain) Qty: 25 RF: 0 levothyroxine 100 mcg capsule 100 mcg PO DAILY RF: 0 clopidogrel [Plavix] 75 mg tablet 75 mg PO DAILY RF: 0 ascorbic acid (vitamin C) [Vitamin C] 250 mg Tablet 250 mg PO DAILY RF: 0 multivitamin Capsule 1 cap PO DAILY RF: 0 Discharge Orders: Discharge Order (Routine); Ordered 12/31/20 Ordered By: Sumit Wong Admission Data Admit Date/Time: 12/27/20 17:28 Attending Provider: Sumit Wong Admit Provider: Ulysses Andrews Primary Care Provider: Baldo Morris Other Providers: Ulysses Andrews Coding Level of Care Code D/C Day Management >30 mins Diagnoses Small bowel obstruction K56.609 Anemia D64.9 Macrocytosis D75.89 Coronary artery disease I25.10 Hyperlipidemia E78.5 ICD (implantable cardioverter-defibrillator) in place Z95.810 Hypothyroidism E03.9 DVT prophylaxis Z29.9 CKD (chronic kidney disease), stage III N18.30
== END 2020-12-31 10:33 | disposition home or self-care (01) | DRG 390 ==
LOC: ED 14:29 → SUATTDRO 17:28 → 2N 17:28

== ENCOUNTER 2022-07-22 08:47 | Inpatient (IN) ==
[2022-07-22] MEDS ORDERED: SODIUM CHLORIDE 0.9% 500 ML IV ONE (09:10)
[2022-07-22] MEDS ORDERED: dexAMETHasone**PF** 10 MG/ML VIAL IV ONE (09:21)
[2022-07-22] MEDS ORDERED: guaiFENesin 600 MG TABCR PO STA (09:21)
[2022-07-22] MEDS ORDERED: IPRATROPIUM BROMIDE/ALBUTEROL respimat INH INH STA (09:21)
--- NOTE | 2022-07-22 09:26 | Emergency Department Note ---
Impression & Plan Pneumonia due to COVID-19 virus, Hypoxia, CKD (chronic kidney disease), stage III ED Provider Note NAME: ALLY ORTIZ AGE: 86 SEX: M ARRIVES VIA: Walk-In INFORMANT: Patient ED PROVIDER(S): Pardeep Santiago MD CHIEF COMPLAINT: SOB, Covid-19 PLAN: Disposition: Admit MEDICAL DECISION MAKING: The patient is a pleasant 86-year-old gentleman with a past medical history of CAD, ischemic cardiomyopathy, history of AICD is emergency department for shar luation of worsening shortness of breath in the setting of being diagnosed COVID-19 a week ago with worsening cough, congestion. Patient denies any vomiting or diarrhea. He reports his appetite has been less and has not been eating or drinking much at all. He is fully vaccinated. He feels his weight has decreased over the past week. On arrival the patient is fatigued but no acute distress, afebrile with O2 saturation 82% on room air placed on 6 L nasal cannula improving to the upper 90s. On exam the patient has scant rhonchi and wheezes bilaterally. He appears clinically dry. EKG is paced. Chest x-ray with multifocal airspace opacities consistent with patient's COVID-19 infection. WBC 16.6K. The patient 9 sacra 5.6 decreased from 5 without more recent values for comparison. Platelets within normal limits. Creatinine 1.4 at patient's baseline setting of CKD. Chemistry without metabolic acidosis. Electrolytes without significant abnormality. LFTs are elevated from baseline and nonspecific with total bili 1.9, direct 0.6 and AST and ALT 54 and 57, respectively. Alk phos 123. Given patient's COVID-19 is negative with associated hypoxia he was treated with dexamethasone. Patient agrees with plan for admission for further management. Case was discussed with Dr. Meek, [facility] hospitalist, who will evaluate the patient for admission. Triage Nursing notes reviewed and agree them. Prior medical records reviewed Vital Signs: reviewed and remarkable for hypoia. Differential diagnosis: Reactive airway disease, pneumonia, pneumothorax, COPD, CHF, infections, cardiac ischemia, pulmonary embolism, musculoskeletal, gastrointestinal, as well as other pathologies. ER treatment provided: See below. Diagnostics interpreted by me: ECG: Atrial paced rhythm with prolonged AV conduction with occasional PVCs, 69 bpm, no overt acute ischemia. Cardiac Monitoring: An order for continuous cardiac monitoring was placed and demonstrated Atrial paced rhythm with prolonged AV conduction with occasional PVCs, 69 bpm. Laboratory studies: See below Imaging studies: See below Consultation(s): Case was discussed with Dr. Meek, [facility] hospitalist, who will evaluate the patient for admission. HPI: The patient is a pleasant 86-year-old gentleman with a past medical history of CAD, ischemic cardiomyopathy, history of AICD is emergency department for evaluation of worsening shortness of breath in the setting of being diagnosed COVID-19 a week ago with worsening cough, congestion. Patient denies any vomiting or diarrhea. He reports his appetite has been less and has not been eating or drinking much at all. He is fully vaccinated. He feels his weight has decreased over the past week. ROS: See above HPI for pertinent positives & negatives. A total of 10 systems reviewed and were otherwise negative. VITALS:See Below PHYSICAL EXAMINATION: GENERAL: Awake, alert, uncomfortable-appearing, in no distress HENT: Normocephalic, atraumatic. Oropharynx with dry mucous membranes and otherwise unremarkable. . EYES: Normal conjunctiva. Sclera non-icteric. NECK: Supple. No nuchal rigidity. FROM. No JVD. RESPIRATORY: Scant wheeze rhonchi bilaterally CARDIAC: Regular rate, normal rhythm. Extremities warm and well perfused. Pulses equal. ABDOMEN: Soft, non-distended. No tenderness to palpation. No rebound or guarding. No masses. RECTAL: Deferred. MUSCULOSKELETAL: Chest examination reveals no tenderness. The back is sy mmetrical on inspection without obvious abnormality. There is no CVA tenderness to palpation. No joint edema. LOWER EXTREMITIES: Calves are equal size bilaterally and non-tender. No edema. No discoloration. NEURO: Normal sensorium. No sensory or motor deficits noted. SKIN: No rash or jaundice noted. Pardeep Santiago MD Past Med/Surg History Medical History Congenital heart disease Hyperlipidemia Hypothyroidism ICD (implantable cardioverter-defibrillator) in place Myocardial Infarction SBO (small bowel obstruction) Ventricular tachycardia Surgical History History of heart artery stent 04/01/20 at [facility] History of implantable cardioverter-defibrillator (ICD) placement Family History Brother Hx of CABG Sister Myocardial infarction Social History Smoking Status: Never smoker Second Hand Exposure: No; Tobacco Cessation Education Requested by Patient: No Hx Alcohol Use: No Hx Substance Use: No Preferred Language: Ghanaian Communication Ability: Effective Clinical Specialist Required: No Beliefs That Will Affect Care: None Current Living Situation: Spouse Current Living Situation Comment: home 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 Other Information That Helps Us Care for You: No Feels Safe at Home: Yes Safety Concerns: Feels Safe At This Time Assistive Devices: None Allergies Allergies Allergy/AdvReac Type Severity Reaction Status Date / Time No Known Drug Allergies Allergy Unknown Verified 06/12/22 13:14 Home Meds Home Medications Medication Instructions Recorded Confirmed aspirin 81 mg tablet 81 mg PO DAILY 06/02/19 07/22/22 nitroglycerin 0.4 mg sublingual 0.4 mg sublingual Q5M PRN Chest 06/02/1906/05 tablet Pain #25 tabs ascorbic acid (vitamin C) 250 mg 250 mg PO DAILY 07/08/19 07/22/22 tablet (Vitamin C) multivitamin 1 cap PO DAILY 07/08/19 07/22/22 levothyroxine 100 mcg capsule 100 mcg PO DAILY 07/19/20 07/22/22 atorvastatin 20 mg tablet 20 mg PO DAILY 05/22/22 07/22/22 amiodarone 200 mg tablet 200 mg PO DAILY 06/12/22 07/22/22 Previous Rx's Medication Instructions Recorded allopurinol 300 mg tablet 300 mg PO DAILY #90 tabs 07/05/20 omeprazole 20 mg capsule,delayed 20 mg PO DAILY #30 caps 08/02/20 release clopidogrel 75 mg tablet (Plavix) 75 mg PO DAILY #90 tabs 06/13/21 ranolazine 500 mg tablet,extended 500 mg PO BID #180 tabs 01/09/22 release,12 hr metoprolol succinate 100 mg 100 mg PO DAILY #90 tabs 05/22/22 tablet,extended release 24 hr furosemide 40 mg tablet (Lasix) 20 mg PO DAILY PRN weight gain #30 06/12/22 tabs Results & Data (ED) Vital Signs Vital Signs - 24 hr 07/22/22 08:51 07/22/22 09:04 07/22/22 09:10 Temperature 36.9 C Temperature Source Temporal Artery Scan Pulse Rate 86 Pulse Rate [Apical] Pulse Rhythm [Apical] Pulse Strength [Apical] Respiratory Rate 20 Respiratory Effort / Characteristics Non-Labored Respiratory Depth Normal Respiratory Pattern Blood Pressure 112/65 Blood Pressure [Left Arm] Blood Pressure Mean 80 Blood Pressure Mean [Left Arm] Blood Pressure Position [Left Arm] Pulse Oximetry 83 L 82 L 83 L Oxygen Delivery Method Room Air Room Air Nasal Cannula Oxygen Flow Rate 6 0 Sepsis Recent Fever Within 48 Hours No Sepsis New/Unexplained Change in Mental Status N/A Sepsis Action Taken by Nursing No Action Required Oxygen Flow Rate - Titration 6 Pulse Oximetry Post Tiitration 96 07/22/22 11:12 07/22/22 09:30 07/22/22 10:47 Temperature Temperature Source Pulse Rate Pulse Rate [Apical] 65 Pulse Rhythm [Apical] Regular Pulse Strength [Apical] Normal Respiratory Rate 18 Respiratory Effort / Characteristics Spontaneous Accessory Muscle Use Short of Breath SOB on Exertion Non-Labored Spontaneous Respiratory Depth Retractive Normal Respiratory Pattern Rapid/Shallow Tachypnea Regular Blood Pressure Blood Pressure [Left Arm] 100/58 L Blood Pressure Mean Blood Pressure Mean [Left Arm] 72 Blood Pressure Position [Left Arm] Sitting Pulse Oximetry 94 95 Oxygen Delivery Method Nasal Cannula Nasal Cannula Oxygen Flow Rate 6 6 Sepsis Recent Fever Within 48 Hours Sepsis New/Unexplained Change in Mental Status Sepsis Action Taken by Nursing Oxygen Flow Rate - Titration Pulse Oximetry Post Tiitration 07/22/22 11:07 Temperature Temperature Source Pulse Rate Pulse Rate [Apical] Pulse Rhythm [Apical] Pulse Strength [Apical] Respiratory Rate Respiratory Effort / Characteristics Respiratory Depth Respiratory Pattern Blood Pressure Blood Pressure [Left Arm] Blood Pressure Mean Blood Pressure Mean [Left Arm] Blood Pressure Position [Left Arm] Pulse Oximetry Oxygen Delivery Method Nasal Cannula Oxygen Flow Rate 6 Sepsis Recent Fever Within 48 Hours Sepsis New/Unexplained Change in Mental Status Sepsis Action Taken by Nursing Oxygen Flow Rate - Titration Pulse Oximetry Post Tiitration Laboratory Data Attestation: I reviewed the patient's lab results. Result diagrams: 07/22/22 09:32 07/22/22 09:32 Lab Results 07/22/22 07/22/22 07/22/22 Range/Units 08:26 09:32 09:32 WBC 16.67 H (4.8-10.8) K/ul RBC 2.23 L (4.63-6.08) M/uL Hgb 9.0 L (14.0-18.0) g/dl Hct 25.6 L (40.1-51.0) % MCV 114.8 H (80.0-100.0) fL MCH 40.4 H (25.0-34.0) pg MCHC 35.2 (32.0-36.0) g/dL RDW Std Deviation 60.1 H (36.4-46.3) fL RDW Coeff of Karla 14.4 (11.5-14.5) % Plt Count 240 (130-400) K/uL MPV 9.9 (9.4-12.4) fL Immature Gran % (Auto) 1.3 % Neut % (Auto) 91.2 % Lymph % (Auto) 3.5 % Gibson % (Auto) 3.8 % Eos % (Auto) 0.1 % Baso % (Auto) 0.1 % Neut # (Auto) 15.20 H (1.4-6.5) K/uL Lymph # (Auto) 0.58 L (1.2-3.4) K/uL Gibson # (Auto) 0.63 (0.24-0.82) K/uL Eos # (Auto) 0.02 (0-0.50) K/uL Baso # (Auto) 0.02 (0-0.2) K/uL Immature Gran # (Auto) 0.22 H (0.00-0.02) K/uL Polychromasia 1+ Macrocytosis Present Tear Drop Cells 1+ Ovalocytes 1+ ESR (0-20) mm/hr Sodium 134 L (136-145) mmol/L Potassium 3.9 (3.5-5.1) mmol/L Chloride 100 (98-107) mmol/L Carbon Dioxide 23 (21-32) mmol/L Anion Gap 11 (3-11) BUN 24 H (6-23) mg/dl Creatinine 1.43 H (0.6-1.4) mg/dl Est Cr Clr Drug Dosing Not Reportable Est GFR ( Amer) 51.4 ml/min Est GFR (Non-Af Amer) 44.3 ml/min BUN/Creatinine Ratio 16.8 (10-20) Glucose 111 H (70-99(Fasting)) mg/dl Calcium 9.1 (8.5-10.1) mg/dl Phosphorus 3.3 (2.5-4.9) mg/dl Magnesium 1.9 (1.7-2.4) mg/dl Ferritin (8-388) ng/ml Total Bilirubin 1.9 H (0.2-1.0) mg/dl Direct Bilirubin (0-0.2) mg/dl AST 54 H (13-39) U/L ALT 57 H (7-52) U/L Alkaline Phosphatase 123 H (34-104) U/L Total Creatine Kinase (30-223) U/L Troponin I High Sens 16.5 (0-20) pg/ml C-Reactive Protein (0-0.5) mg/dl B-Natriuretic Peptide (0-100) pg/ml Total Protein 6.8 (6.0-8.3) gm/dl Albumin 3.3 L (3.4-5.0) gm/dl Globulin 3.5 (2.5-4.0) gm/dl Albumin/Globulin Ratio 0.9 (0.9-2) Lipase 3 L (11-82) U/L Vitamin B12 (180-914) pg/ml Folate (>5.38) ng/ml Procalcitonin (0-0.5) ng/ml SARS-CoV-2 (PCR) POSITIVE A* (Negative) 07/22/22 07/22/22 07/22/22 Range/Units 09:32 09:32 09:32 WBC (4.8-10.8) K/ul RBC (4.63-6.08) M/uL Hgb (14.0-18.0) g/dl Hct (40.1-51.0) % MCV (80.0-100.0) fL MCH (25.0-34.0) pg MCHC (32.0-36.0) g/dL RDW Std Deviation (36.4-46.3) fL RDW Coeff of Karla (11.5-14.5) % Plt Count (130-400) K/uL MPV (9.4-12.4) fL Immature Gran % (Auto) % Neut % (Auto) % Lymph % (Auto) % Gibson % (Auto) % Eos % (Auto) % Baso % (Auto) % Neut # (Auto) (1.4-6.5) K/uL Lymph # (Auto) (1.2-3.4) K/uL Gibson # (Auto) (0.24-0.82) K/uL Eos # (Auto) (0-0.50) K/uL Baso # (Auto) (0-0.2) K/uL Immature Gran # (Auto) (0.00-0.02) K/uL Polychromasia Macrocytosis Tear Drop Cells Ovalocytes ESR 113 H (0-20) mm/hr Sodium (136-145) mmol/L Potassium (3.5-5.1) mmol/L Chloride (98-107) mmol/L Carbon Dioxide (21-32) mmol/L Anion Gap (3-11) BUN (6-23) mg/dl Creatinine (0.6-1.4) mg/dl Est Cr Clr Drug Dosing Est GFR ( Amer) ml/min Est GFR (Non-Af Amer) ml/min BUN/Creatinine Ratio (10-20) Glucose (70-99(Fasting)) mg/dl Calcium (8.5-10.1) mg/dl Phosphorus (2.5-4.9) mg/dl Magnesium (1.7-2.4) mg/dl Ferritin 1713.0 H (8-388) ng/ml Total Bilirubin (0.2-1.0) mg/dl Direct Bilirubin 0.6 H (0-0.2) mg/dl AST (13-39) U/L ALT (7-52) U/L Alkaline Phosphatase (34-104) U/L Total Creatine Kinase 102 (30-223) U/L Troponin I High Sens (0-20) pg/ml C-Reactive Protein 39.13 H (0-0.5) mg/dl B-Natriuretic Peptide (0-100) pg/ml Total Protein (6.0-8.3) gm/dl Albumin (3.4-5.0) gm/dl Globulin (2.5-4.0) gm/dl Albumin/Globulin Ratio (0.9-2) Lipase (11-82) U/L Vitamin B12 (180-914) pg/ml Folate (>5.38) ng/ml Procalcitonin 0.54 H (0-0.5) ng/ml SARS-CoV-2 (PCR) (Negative) 07/22/22 07/22/22 Range/Units 09:32 10:46 WBC (4.8-10.8) K/ul RBC (4.63-6.08) M/uL Hgb (14.0-18.0) g/dl Hct (40.1-51.0) % MCV (80.0-100.0) fL MCH (25.0-34.0) pg MCHC (32.0-36.0) g/dL RDW Std Deviation (36.4-46.3) fL RDW Coeff of Karla (11.5-14.5) % Plt Count (130-400) K/uL MPV (9.4-12.4) fL Immature Gran % (Auto) % Neut % (Auto) % Lymph % (Auto) % Gibson % (Auto) % Eos % (Auto) % Baso % (Auto) % Neut # (Auto) (1.4-6.5) K/uL Lymph # (Auto) (1.2-3.4) K/uL Gibson # (Auto) (0.24-0.82) K/uL Eos # (Auto) (0-0.50) K/uL Baso # (Auto) (0-0.2) K/uL Immature Gran # (Auto) (0.00-0.02) K/uL Polychromasia Macrocytosis Tear Drop Cells Ovalocytes ESR (0-20) mm/hr Sodium (136-145) mmol/L Potassium (3.5-5.1) mmol/L Chloride (98-107) mmol/L Carbon Dioxide (21-32) mmol/L Anion Gap (3-11) BUN (6-23) mg/dl Creatinine (0.6-1.4) mg/dl Est Cr Clr Drug Dosing Est GFR ( Amer) ml/min Est GFR (Non-Af Amer) ml/min BUN/Creatinine Ratio (10-20) Glucose (70-99(Fasting)) mg/dl Calcium (8.5-10.1) mg/dl Phosphorus (2.5-4.9) mg/dl Magnesium (1.7-2.4) mg/dl Ferritin (8-388) ng/ml Total Bilirubin (0.2-1.0) mg/dl Direct Bilirubin (0-0.2) mg/dl AST (13-39) U/L ALT (7-52) U/L Alkaline Phosphatase (34-104) U/L Total Creatine Kinase (30-223) U/L Troponin I High Sens (0-20) pg/ml C-Reactive Protein (0-0.5) mg/dl B-Natriuretic Peptide 615 H (0-100) pg/ml Total Protein (6.0-8.3) gm/dl Albumin (3.4-5.0) gm/dl Globulin (2.5-4.0) gm/dl Albumin/Globulin Ratio (0.9-2) Lipase (11-82) U/L Vitamin B12 656 (180-914) pg/ml Folate 12.40 (>5.38) ng/ml Procalcitonin (0-0.5) ng/ml SARS-CoV-2 (PCR) (Negative) Administered Medications Albuterol (Albuterol 0.5% Neb Soln 2.5 Mg/0.5 Ml Vial) 2.5 mg NEB Q6R IDALMIS; Protocol Stop: 08/21/22 15:15 Last Admin: 07/22/22 20:11 Dose: 2.5 mg Documented By: Admin: 07/22/22 16:26 Dose: 2.5 mg Documented By: EAM Ascorbic Acid (Ascorbic Acid 500 Mg Tab) 250 mg PO DAILY IDALMIS Stop: 08/21/22 15:29 Last Admin: 07/22/22 16:20 Dose: 250 mg Documented By: SML Folic Acid (Folic Acid 1 Mg Tab) 1 mg PO QAM IDALMIS Stop: 08/21/22 15:15 Last Admin: 07/22/22 16:21 Dose: 1 mg Documented By: SML Guaifenesin (Guaifenesin Sugar Free 200 Mg/10 Ml Udc) 200 mg PO Q6H IDALMIS Stop: 08/21/22 15:15 Last Admin: 07/22/22 20:42 Dose: 200 mg Documented By: Admin: 07/22/22 16:20 Dose: 200 mg Documented By: SML Azithromycin 500 mg/ Dextrose 255 mls @ 127.5 mls/hr IV Q24H IDALMIS Stop: 07/29/22 15:44 Last Infusion: 07/22/22 18:10 Dose: 0 mls/hr Documented By: Admin: 07/22/22 16:17 Dose: 127.5 mls/hr Documented By: TEE Pantoprazole Sodium (Pantoprazole 40 Mg Tab) 40 mg PO DAILY IDALMIS Stop: 08/21/22 15:44 Last Admin: 07/22/22 16:21 Dose: 40 mg Documented By: TEE Ranolazine (Ranolazine 500 Mg Er Tab) 500 mg PO BID IDALMIS Stop: 08/21/22 20:59 Last Admin: 07/22/22 20:42 Dose: 500 mg Documented By: LAT Discontinued Medications Albuterol (Ipratropium [place]/Albuterol Respimat Inh) 2 puffs INH NOW STA Stop: 07/22/22 09:22 Last Admin: 07/22/22 09:51 Dose: 2 puffs Documented By: RAÚL Dexamethasone Sodium Phosphate (DexamethasonePf 10 Mg/Ml Vial) 10 mg IV NOW ONE Stop: 07/22/22 09:22 Last Admin: 07/22/22 09:51 Dose: 10 mg Documented By: RAÚL Guaifenesin (Guaifenesin 600 Mg Tabcr) 1,200 mg PO NOW STA Stop: 07/22/22 09:22 Last Admin: 07/22/22 09:50 Dose: 1,200 mg Documented By: RAÚL Sodium Chloride (Nss) 500 mls @ 999 mls/hr IV .Q31M ONE Stop: 07/22/22 09:40 Last Infusion: 07/22/22 10:21 Dose: 0 mls/hr Documented By: Admin: 07/22/22 09:51 Dose: 999 mls/hr Documented By: RAÚL Ceftriaxone Sodium 2,000 mg/ (Dextrose) 70 mls @ 100 mls/hr IV NOW STA Stop: 07/22/22 13:16 Last Infusion: 07/22/22 15:50 Dose: 0 mls/hr Documented By: Admin: 07/22/22 14:18 Dose: 100 mls/hr Documented By: DAVE Miscellaneous (Patient's Height &/Or Weight Needed) 1 each N/A Q2H IDALMIS Stop: 08/21/22 12:44 Last Admin: 07/22/22 15:50 Dose: Not Given Documented By: Admin: 07/22/22 14:18 Dose: 1 each Documented By: CHAZ Imaging Data Radiologist's Impression: Chest X-Ray 07/22/22 09:12 XR chest 1V portable CLINICAL HISTORY: Atypical chest pain. COMPARISON STUDY: Chest radiograph July 21, 2022. FINDINGS: A left subclavian pacer/AICD is in place. There is no pneumothorax or pleural effusion. Cardiomegaly is noted. There are calcified mediastinal lymph nodes. Multifocal airspace opacities have progressed. IMPRESSION: Progression of multifocal airspace opacities consistent with an infectious process. ACT 112: Negative or not required by law. Electronically signed by: Dwaine Schmidt M.D. 07/22/2022 9:35 AM Discharge Plan Visit Data Chief Complaint: Shortness of Breath/Dyspnea Stated Complaint: FEVER, COVID+, HX CARDIAC ISSUES ED Provider: Pardeep Santiago Discharge Problem: Pneumonia due to COVID-19 virus, Hypoxia, CKD (chronic kidney disease), stage III Patient Disposition: Admitted As Inpatient Discharge Instructions Interventions: ED Discharge Assessment Last Done: 07/22/22 15:31
--- NOTE | 2022-07-22 09:36 | XRay Report ---
XR chest 1V portable CLINICAL HISTORY: Atypical chest pain. COMPARISON STUDY: Chest radiograph July 21, 2022. FINDINGS: A left subclavian pacer/AICD is in place. There is no pneumothorax or pleural effusion. Car diomegaly is noted. There are calcified mediastinal lymph nodes. Multifocal airspace opacities have p rogressed. IMPRESSION: Progression of multifocal airspace opacities consistent with an infectious process. ACT 112: Negative or not required by law. Electronically signed by: Dwaine Schmidt M.D. 07/22/2022 9:35 AM
[2022-07-22 09:52] LABS: Hematocrit (blood only) 25.6 % (40.1-51.0); Mean Corpuscular Hemoglobin 40.4 pg (25.0-34.0); Mean Corpuscular Hgb Conc 35.2 g/dL (32.0-36.0); Mean Corpuscular Volume 114.8 fL (80.0-100.0); Mean Platelet Volume 9.9 fL (9.4-12.4); Platelet Count 240 K/uL (130-400); RDW Coefficient of Variation 14.4 % (11.5-14.5); RDW Standard Deviation 60.1 fL (36.4-46.3); Red Blood Count 2.23 M/uL (4.63-6.08); White Blood Count 16.67 K/ul (4.8-10.8)
[2022-07-22 10:16] LABS: Alanine Aminotransferase 57 U/L (7-52); Albumin Globulin Ratio 0.9 (0.9-2); Albumin Level 3.3 gm/dl (3.4-5.0); Alkaline Phosphatase 123 U/L (34-104); Anion Gap 11 (3-11); Aspartate Aminotransferase 54 U/L (13-39); BUN Creatinine Ratio 16.8 (10-20); Basophils # (auto) 0.02 K/uL (0-0.2); Basophils % (auto) 0.1 %; Bilirubin,Total 1.9 mg/dl (0.2-1.0); Blood Urea Nitrogen 24 mg/dl (6-23); Calcium 9.1 mg/dl (8.5-10.1); Carbon Dioxide 23 mmol/L (21-32); Chloride 100 mmol/L (98-107); Eosinophils # (auto) 0.02 K/uL (0-0.50); Eosinophils % (auto) 0.1 %; Est GFR (African American) 51.4 ml/min; Est GFR (Non-African American) 44.3 ml/min; Globulin 3.5 gm/dl (2.5-4.0); Glucose 111 mg/dl (70-99(Fasting)); Immature Granulocytes # (auto) 0.22 K/uL (0.00-0.02); Immature Granulocytes % (auto) 1.3 %; Lipase 3 U/L (11-82); Lymphocytes # (auto) 0.58 K/uL (1.2-3.4); Lymphocytes % (auto) 3.5 %; Macrocytosis Present; Magnesium 1.9 mg/dl (1.7-2.4); Monocytes # (auto) 0.63 K/uL (0.24-0.82); Monocytes % (auto) 3.8 %; Neutrophils % (auto) 91.2 %; Ovalocytes 1+; Phosphorus 3.3 mg/dl (2.5-4.9); Polychromasia 1+; Potassium 3.9 mmol/L (3.5-5.1); Sodium 134 mmol/L (136-145); Tear Drop Cells 1+; Total Protein 6.8 gm/dl (6.0-8.3)
[2022-07-22 10:21] LABS: Troponin I High Sensitivity 16.5 pg/ml (0-20)
--- NOTE | 2022-07-22 11:11 | History & Physical Report ---
Date of Service July 22, 2022 Assessment & Plan (1) Acute respiratory failure with hypoxia: Plan: -Admit to med/tele -Patient is currently afebirle, hemodynamically stable, and stable on 6L NC -Hypoxic is liekly multifactorial at this time including covid pneumonia with possible superimposed bacterial pneumonia as he has a significant leukocytosis with left shift, procal is slightly elevated at 0.54 -BNP elevated at 615, patient not significantly volume overloaded, received 1L NSS bolus in ED, will give one dose of 40 mg IV lasix now and continue to monitor volume status -Will add on ferritin, CK, ESR, and CRP -Confirmed he has been previously vaccinated and received covid booster but unsure of brand and last dose -Will start ceftriaxone and azithromycin for now with possible superimposed bacterial pneumonia, will wait to give first dose until blood cultures and sputum culture are obtained -Received 10 mg IV dexamethasone, robitussin, and DuoNeb in the ED -Monitor on tele and pulse ox, prn O2 ordered -Will continue Dex with 6 mg IV daily, complete 10 day course, prn albuterol q6h, prn tylenol, scheduled robitussin -Continue incentive spirometry and flutter therapy -Patient does not wear O2 at baseline, wean as able -AM CBC and CMP (2) Pneumonia due to COVID-19 virus: Plan: -See acute hypoxic respiratory failure (3) Anemia: Plan: -Patient's Hgb is at 9.0 today, down from 11.9 as of 05/09/21 -Has a history of macrocytic anemia, MCV elevated today, will add on B12 and folate levels -Patient noted one bloody bowel movement last week, no others since -BUN mildly elevated at 24, will hold chemical DVT PPX for now, if any other episodes then would consult GI (4) Macrocytosis: Plan: -See anemia (5) Coronary artery disease: Plan: -No chest pain -Continue aspirin, plavix, metoprolol, and ranolazine (6) ICD (implantable cardioverter-defibrillator) in place: Plan: -See CAD (7) Hyperlipidemia: Plan: -Wait to continue statin until CK results (8) Hypothyroidism: Plan: -Continue levothyroxine (9) Cardiomyopathy: Plan: -BNP elevated at 615, no baseline available -Received 1L NSS in the ED prior to admission -WIll give 40 mg IV lasix now -Continue 40 mg PO lasix daily tomorrow (10) Elevated LFTs: Plan: -No abdominal pain or jaundice -Likely due to current covid infection -Continue to monitor for now and trend LFTS Plan The patient was discussed with Dr. Meek at the time of admission History of Present Illness Chief Complaint: SOB, recently covid + Primary Care Provider: Farooq SolisDO Somers is an 86 year old male with a PMH significant for CAD, HFrEF (LVEF of 25-30% as of 03/22/22), S/P dual chamber ICD placement, Cardiomyopathy, Frequent PVCs, CKD, Macrocytosis, and Hypothyroidism who presented to the [facility] ED on 07/22/22 with a SOB after testing positive for Covid-19 one week ago. In the ED the patient was found to be afebrile, hemodynamically stable, but hypoxic in the 80s on room air. He was subsequently placed on 6L NC and remained stable. Labs were remarkable for a leukocytosis of 16.67 with a left shift of 15.20, Hgb of 9.0 (down from 11.9 on 05/09/22), MCV of 114, sodium of 134, stable renal function, total bili of 1.9, AST of 54, ALT of 57, alk phos of 123. Chest xray shows Progression of multifocal airspace opacities consistent with an infectious process. In the ED the patient was given 10 mg IV dexamethasone, robitussin, DuoNeb, and 1L NSS bolus. At the time of the exam the patient was resting comfortably in bed, currently stable on 6L NC. During my exam I attempted to wean the patient down to 4L but his SpO2 fell below 95%. The patient states that he first started developing a productive cough and SOB 1 week ago. He states that he was test for covid last Sunday and was negative, but he tested positive on 07/18. When asked, he confirms that he received the covid vaccine and booster but is unsure of when he last received the booster. He denies wearing oxygen at baseline. He is SOB with exertion but not currently when at rest. He has not seen the color of his sputum because he has been swallowing it. When asked about melena/bloody bowel movements, he states that he had one bloody bowel movement last week. When asked further, he states that he does not have a history of hemorrhoids. He denies seeing blood only on the toilet paper and confirms that there was blood in the toilet bowel. He has not experienced melena recently. He denies recent fevers, chills, headahce, chest pain, abdominal pain, nausea, vomiting, diarrhea, dysuria, hematuria, and recent falls. We discussed code status and the patient would like to be a FULL CODE; his would make decisions for him if he could not make them himself. Allergies Allergy/AdvReac Type Severity Reaction Status Date / Time No Known Drug Allergies Allergy Unknown Verified 06/12/22 13:14 Home Medications Medication Instructions Recorded Confirmed Type aspirin 81 mg tablet 81 mg PO DAILY 06/02/19 07/22/22 History nitroglycerin 0.4 mg sublingual 0.4 mg sublingual Q5M PRN Chest 06/02/19 07/22/22 History tablet Pain #25 tabs ascorbic acid (vitamin C) 250 mg 250 mg PO DAILY 07/08/19 07/22/22 History tablet (Vitamin C) multivitamin 1 cap PO DAILY 07/08/19 07/22/22 History allopurinol 300 mg tablet 300 mg PO DAILY #90 tabs 07/05/20 07/22/22 Rx levothyroxine 100 mcg capsule 100 mcg PO DAILY 07/19/20 07/22/22 History omeprazole 20 mg capsule,delayed 20 mg PO DAILY #30 caps 08/02/20 07/22/22 Rx release clopidogrel 75 mg tablet (Plavix) 75 mg PO DAILY #90 tabs 06/13/21 07/22/22 Rx ranolazine 500 mg tablet,extended 500 mg PO BID #180 tabs 01/09/22 07/22/22 Rx release,12 hr atorvastatin 20 mg tablet 20 mg PO DAILY 05/22/22 07/22/22 History metoprolol succinate 100 mg 100 mg PO DAILY #90 tabs 05/22/22 07/22/22 Rx tablet,extended release 24 hr amiodarone 200 mg tablet 200 mg PO DAILY 06/12/22 07/22/22 History furosemide 40 mg tablet (Lasix) 20 mg PO DAILY PRN weight gain #30 06/12/22 07/22/22 Rx tabs Past Med/Surg History Medical History Congenital heart disease Hyperlipidemia Hypothyroidism ICD (implantable cardioverter-defibrillator) in place Myocardial Infarction SBO (small bowel obstruction) Ventricular tachycardia Surgical History History of heart artery [place] [facility] [place] of implantable cardioverter-defibrillator (ICD) placement Family History Brother Hx of CABG Sister Myocardial infarction Social History Smoking Status: Never smoker Second Hand Exposure: No; Tobacco Cessation Education Requested by Patient: No Hx Alcohol Use: No Hx Substance Use: No Preferred Language: Egyptian Communication Ability: Effective Loom 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 Required: No Beliefs That Will Affect Care: Scientologist and Spiritual marital status: Current Living Situation: Spouse Current Living Situation Comment: home 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 All systems have been reviewed and are otherwise negative. Physical Exam Physical Exam: Physical Exam: General: In no acute distress, stated age, well-nourished, good hygiene, non- toxic appearing HEENT: Normocephalic, atraumatic, no scleral icterus, pupils around round, symmetrical, and reactive to light, DRY mucus membranes, +JVD, trachea midline, no thyromegaly Chest/Pulm: Currently on 6L via NC, ICD in place in the left upper chest without signs of infection, No respiratory distress, symmetrical chest expansion, expiratory wheezing noted throughout Cardiac: RRR, systolic murmurs noted Abdomen: Negative for ascites and bruising, normoactive bowel sounds, soft, non-tender to palpation throughout Musculoskeletal: Symmetrical and without signs of acute trauma, upper and lower extremities with full ROM, no atrophy, spasticity, or flaccidity Extremities: Radial, dorsalis pedis, and posterior tibial pulses are intact and symmetrical, no edema noted in the BL LE's Skin: Warm, dry, no rashes , lesions, or scars noted Neuro: Alert and oriented to person, place, month, year, and president, no focal defects, CN II-XII tested and intact, finger to nose test negative, no tremors noted Psych: No acute distress, calm and cooperative during the exam Results & Data Results & Data ([facility]) Vital Signs (Past 12 Hours) Vital Signs Temp Pulse Resp BP Pulse Ox O2 Del Method O2 Flow Rate 07/22/22 09:04 82 L Room Air 6 07/22/22 08:51 36.9 C 86 20 112/65 83 L Room Air Laboratory Results Abnormal lab results 07/22/22 07/22/22 Range/Units 09:32 09:32 WBC 16.67 H (4.8-10.8) K/ul RBC 2.23 L (4.63-6.08) M/uL Hgb 9.0 L (14.0-18.0) g/dl Hct 25.6 L (40.1-51.0) % MCV 114.8 H (80.0-100.0) fL MCH 40.4 H (25.0-34.0) pg RDW Std Deviation 60.1 H (36.4-46.3) fL Neut # (Auto) 15.20 H (1.4-6.5) K/uL Lymph # (Auto) 0.58 L (1.2-3.4) K/uL Immature Gran # (Auto) 0.22 H (0.00-0.02) K/uL Sodium 134 L (136-145) mmol/L BUN 24 H (6-23) mg/dl Creatinine 1.43 H (0.6-1.4) mg/dl Glucose 111 H (70-99(Fasting)) mg/dl Total Bilirubin 1.9 H (0.2-1.0) mg/dl AST 54 H (13-39) U/L ALT 57 H (7-52) U/L Alkaline Phosphatase 123 H (34-104) U/L Albumin 3.3 L (3.4-5.0) gm/dl Lipase 3 L (11-82) U/L Diagnostic Findings Chest X-Ray 07/22/22 09:12 XR chest 1V portable CLINICAL HISTORY: Atypical chest pain. COMPARISON STUDY: Chest radiograph July 21, 2022. FINDINGS: A left subclavian pacer/AICD is in place. There is no pneumothorax or pleural effusion. Cardiomegaly is noted. There are calcified mediastinal lymph nodes. Multifocal airspace opacities have progressed. IMPRESSION: Progression of multifocal airspace opacities consistent with an infectious process. ACT 112: Negative or not required by law. Electronically signed by: Dwaine Schmidt M.D. 07/22/2022 9:35 AM ECG Additional Comments: Atrial-paced rhythm with prolonged AV conduction with occasional Premature ventricular complexes in a pattern of bigeminy Non-specific intra-ventricular conduction block Cannot rule out Anterior infarct , age undetermined Abnormal ECG When compared with ECG of 27-DEC-2020 14:56, Electronic atrial pacemaker has replaced Sinus rhythm Minimal criteria for Anterior infarct are now Present Code Status & VTE Plan Code Status Full code VTE Prophylaxis Plan VTE Prophylaxis will be ordered: Yes Supervising Physician Co-Signing Physician Notes Patient seen and examined at bedside, during face to face encounter obtained a history and physical examination. I discussed plan of care with HELEN Llanos and patient. I reviewed above note and agree with it. Patient admitted with COVID-19. Will be placed on steroids. and monitor inflammatory markers. PG Care Time/CCT Total # of Minutes Spent Total Time Spent with Patient: Total time spent is greater than 50% in coordination of care (as documented) at patient's floor/unit and/or counseling patient: [place] [address] Initial Inpt Care Lvl 2 Patient Type Established Medical Decision Making Moderate Complexity Diagnoses Acute respiratory failure with hypoxia J96.01 Pneumonia due to COVID-19 virus U07.1; J12.82 Anemia D64.9 Macrocytosis D75.89 Coronary artery disease I25.10 ICD (implantable cardioverter-defibrillator) in place Z95.810 Hyperlipidemia E78.5 Hypothyroidism E03.9 Cardiomyopathy I25.5 Cardiomyopathy type: ischemic Elevated LFTs R79.89 (1) Cardiomyopathy Cardiomyopathy type: ischemic Qualified Code(s): I25.5 - Ischemic cardiomyopathy
[2022-07-22 11:45] LABS: Bilirubin Direct 0.6 mg/dl (0-0.2)
[2022-07-22 11:56] LABS: C Reactive Protein 39.13 mg/dl (0-0.5)
[2022-07-22] MEDS ORDERED: cefTRIAXone SODIUM 2,000 MG in DEXTROSE 5% 50 ML IV STA (12:35)
[2022-07-22] MEDS: Patient's HEIGHT &/or WEIGHT Needed SCH ×2 (14:18→15:50)
[2022-07-22] MEDS ORDERED: ACETAMINOPHEN 325 MG TAB PO PRN (15:16)
[2022-07-22] MEDS: AZITHROMYCIN 500 MG in DEXTROSE 5% 250 ML IV SCH (16:17)
[2022-07-22] MEDS: ASCORBIC ACID 500 MG TAB PO SCH (16:20)
[2022-07-22] MEDS: guaiFENesin SUGAR FREE 200 MG/10 ML UDC PO SCH ×2 (16:20→20:42)
[2022-07-22] MEDS: FOLIC ACID 1 MG TAB PO SCH (16:21)
[2022-07-22] MEDS: PANTOprazole 40 MG TAB PO SCH (16:21)
[2022-07-22] MEDS: ALBUTEROL 0.5% NEB SOLN 2.5 MG/0.5 ML VIAL NEB SCH ×2 (16:26→20:11)
--- NOTE | 2022-07-22 16:46 | Electrocardiogram Report ---
Test Reason : Blood Pressure : / mmHG Vent. Rate : 069 BPM Atrial Rate : 069 BPM P-R Int : 278 ms QRS Dur : 130 ms QT Int : 418 ms P-R-T Axes : 075 024 067 degrees QTc Int : 447 ms Atrial-paced rhythm with prolonged AV conduction with occasional Premature ventricular complexes Premature atrial complexes in a pattern of bigeminy Non-specific intra-ventricular conduction block Cannot rule out Anterior infarct , age undetermined Abnormal ECG When compared with ECG of 27-DEC-2020 14:56, No significant change Confirmed by Sy Bolden ([id number]) on 07/22/2022 4:45:43 PM Referred By: REFERRED SELF Confirmed By:Sy Bolden
[2022-07-22] MEDS: RANOLAZINE 500 MG ER TAB PO SCH (20:42)
[2022-07-23] MEDS: ALBUTEROL 0.5% NEB SOLN 2.5 MG/0.5 ML VIAL NEB SCH ×4 (00:42→20:00)
[2022-07-23] MEDS: guaiFENesin SUGAR FREE 200 MG/10 ML UDC PO SCH ×4 (03:48→21:48)
[2022-07-23 07:18] LABS: Hematocrit (blood only) 24.8 % (40.1-51.0); Hemoglobin 8.8 g/dl (14.0-18.0); Mean Corpuscular Hemoglobin 40.6 pg (25.0-34.0); Mean Corpuscular Hgb Conc 35.5 g/dL (32.0-36.0); Mean Corpuscular Volume 114.3 fL (80.0-100.0); Mean Platelet Volume 10.3 fL (9.4-12.4); Platelet Count 219 K/uL (130-400); RDW Coefficient of Variation 13.8 % (11.5-14.5); RDW Standard Deviation 58.1 fL (36.4-46.3); Red Blood Count 2.17 M/uL (4.63-6.08); White Blood Count 16.66 K/ul (4.8-10.8)
[2022-07-23 07:53] LABS: Albumin Level 3.2 gm/dl (3.4-5.0); BUN Creatinine Ratio 24.2 (10-20); Bilirubin,Total 0.9 mg/dl (0.2-1.0); Calcium 9.5 mg/dl (8.5-10.1); Creatinine Clr Calc Pharmacy 43.5 ml/min; Est GFR (African American) 63.5 ml/min; Est GFR (Non-African American) 54.8 ml/min; Globulin 3.3 gm/dl (2.5-4.0); Potassium 3.6 mmol/L (3.5-5.1); Total Protein 6.5 gm/dl (6.0-8.3)
[2022-07-23 07:55] LABS: Basophils # (auto) 0.02 K/uL (0-0.2); Basophils % (auto) 0.1 %; Immature Granulocytes # (auto) 0.12 K/uL (0.00-0.02); Immature Granulocytes % (auto) 0.7 %; Lymphocytes # (auto) 0.42 K/uL (1.2-3.4); Lymphocytes % (auto) 2.5 %; Monocytes # (auto) 0.49 K/uL (0.24-0.82); Monocytes % (auto) 2.9 %; Neutrophils # (auto) 15.61 K/uL (1.4-6.5); Neutrophils % (auto) 93.8 %; Ovalocytes 1+; Polychromasia 1+; Tear Drop Cells 1+
[2022-07-23] MEDS: dexAMETHasone 6 MG in SYRINGE 0 ML IV SCH (09:15)
[2022-07-23] MEDS: METOPROLOL SUCC 50MG EXT REL TAB PO SCH (09:16)
[2022-07-23] MEDS: RANOLAZINE 500 MG ER TAB PO SCH ×2 (09:16→21:48)
[2022-07-23] MEDS: AMIODARONE 200 MG TAB PO SCH (09:16)
[2022-07-23] MEDS: ASCORBIC ACID 500 MG TAB PO SCH (09:17)
[2022-07-23] MEDS: FOLIC ACID 1 MG TAB PO SCH (09:17)
[2022-07-23] MEDS: ASPIRIN 81 MG ECTAB PO SCH (09:17)
[2022-07-23] MEDS: CLOPIDOGREL BISULFATE 75 MG TAB PO SCH (09:17)
[2022-07-23] MEDS: FUROSEMIDE 20 MG TAB PO SCH (09:17)
[2022-07-23] MEDS: allopurinoL 300 MG TAB PO SCH (09:17)
[2022-07-23] MEDS: PANTOprazole 40 MG TAB PO SCH (09:17)
[2022-07-23] MEDS: LEVOTHYROXINE SODIUM 100 MCG TABLET PO SCH (09:18)
[2022-07-23] MEDS: AZITHROMYCIN 500 MG in DEXTROSE 5% 250 ML IV SCH (17:03)
[2022-07-23 17:37] LABS: Anion Gap 9.2 (3-11)
--- NOTE | 2022-07-23 21:08 | Hospitalist Progress Note ---
Date of Service July 23, 2022 Assessment & Plan (1) Acute respiratory failure with hypoxia: Plan: -Admit to med/tele -Patient is currently afebirle, hemodynamically stable, and stable on 3L NC -Hypoxic is liekly multifactorial at this time including covid pneumonia with possible superimposed bacterial pneumonia as he has a significant leukocytosis with left shift, procal is slightly elevated at 0.54 -BNP elevated at 615, patient not significantly volume overloaded, received 1L NSS bolus in ED, will give one dose of 40 mg IV lasix now and continue to monitor volume status -Will add on ferritin, CK, ESR, and CRP -Confirmed he has been previously vaccinated and received covid booster but unsure of brand and last dose -Will start ceftriaxone and azithromycin for now with possible superimposed bacterial pneumonia, will wait to give first dose until blood cultures and sputum culture are obtained -Received 10 mg IV dexamethasone, robitussin, and DuoNeb in the ED -Monitor on tele and pulse ox, prn O2 ordered -Will continue Dex with 6 mg IV daily, complete 10 day course, prn albuterol q6h, prn tylenol, scheduled robitussin -Continue incentive spirometry and flutter therapy -Patient does not wear O2 at baseline, wean as able -AM CBC and CMP on 07/23 continue dexamethasone. will check inflammatory markers will order 2 step tomorrow. (2) Pneumonia due to COVID-19 virus: Plan: -See acute hypoxic respiratory failure (3) Anemia: Plan: -Patient's Hgb is at 9.0 today, down from 11.9 as of 05/09/21 -Has a history of macrocytic anemia, MCV elevated today, will add on B12 and folate levels -Patient noted one bloody bowel movement last week, no others since -BUN mildly elevated at 24, will hold chemical DVT PPX for now, if any other episodes then would consult GI (4) Macrocytosis: Plan: -See anemia (5) Coronary artery disease: Plan: -No chest pain -Continue aspirin, plavix, metoprolol, and ranolazine (6) ICD (implantable cardioverter-defibrillator) in place: Plan: -See CAD (7) Hyperlipidemia: Plan: -Wait to continue statin until CK results (8) Hypothyroidism: Plan: -Continue levothyroxine (9) Cardiomyopathy: Plan: -BNP elevated at 615, no baseline available -Received 1L NSS in the ED prior to admission -WIll give 40 mg IV lasix now -Continue 40 mg PO lasix daily tomorrow (10) Elevated LFTs: Plan: -No abdominal pain or jaundice -Likely due to current covid infection -Continue to monitor for now and trend LFTS Admission and Anticipated Discharge Date Admission Date: July 22, 2022 Subjective 86 yo male reports being comfortable on 3 liters nasal cannula. Patient reports feeling weak. Review of Systems Review of Systems: All systems reviewed & are unremarkable except as noted in HPI & below Physical Exam Physical Exam: General: In no acute distress, stated age, well-nourished, good hygiene, non-toxic appearing HEENT: Normocephalic, atraumatic, no scleral icterus, pupils around round, symmetrical, and reactive to light, DRY mucus membranes, trachea midline, no thyromegaly Chest/Pulm: Currently on 3L via NC, ICD in place in the left upper chest without signs of infection, No respiratory distress, symmetrical chest expansion, expiratory wheezing noted throughout Cardiac: RRR, systolic murmurs noted Abdomen: Negative for ascites and bruising, normoactive bowel sounds, soft, non- tender to palpation throughout Musculoskeletal: Symmetrical and without signs of acute trauma, upper and lower extremities with full ROM, no atrophy, spasticity, or flaccidity Extremities: Radial, dorsalis pedis, and posterior tibial pulses are intact and symmetrical, no edema noted in the BL LE's Skin: Warm, dry, no rashes , lesions, or scars noted Neuro: Alert and oriented to person, place, month, year, and president, no focal defects, CN II-XII tested and intact, finger to nose test negative, no tremors noted Psych: No acute distress, calm and cooperative during the exam Results & Data Results & Data ([facility]) Vital Signs (Past 12 Hours) Vital Signs Temp Pulse Pulse Resp BP Pulse Ox O2 Del Method 07/23/22 20:42 70 16 91 Nasal Cannula 07/23/22 17:06 36.9 C 75 18 109/66 92 Nasal Cannula 07/23/22 16:35 64 07/23/22 12:57 63 16 87 L Nasal Cannula 07/23/22 11:49 36.6 C 65 18 121/71 95 Nasal Cannula 07/23/22 10:57 Nasal Cannula 07/23/22 09:15 94 Nasal Cannula 07/23/22 09:15 83 L Nasal Cannula O2 Flow Rate 07/23/22 20:42 3 07/23/22 17:06 6 07/23/22 16:35 07/23/22 12:57 3 07/23/22 11:49 6 07/23/22 10:57 6 07/23/22 09:15 6 07/23/22 09:15 4 PG Care Time/CCT Total # of Minutes Spent Total Time Spent with Patient: Total time spent is greater than 50% in coordination of care (as documented) at patient's floor/unit and/or counseling patient: Coding Level of Care Code 03030 Subseq Hosp Care Lvl 2 Diagnoses Acute respiratory failure with hypoxia J96.01 Pneumonia due to COVID-19 virus U07.1; J12.82 Anemia D64.9 Macrocytosis D75.89 Coronary artery disease I25.10 ICD (implantable cardioverter-defibrillator) in place Z95.810 Hyperlipidemia E78.5 Hypothyroidism E03.9 Cardiomyopathy I25.5 Cardiomyopathy type: ischemic Elevated LFTs R79.89 Time Spent (min) 25 (1) Cardiomyopathy Cardiomyopathy type: ischemic Qualified Code(s): I25.5 - Ischemic cardiomyopathy
[2022-07-24] MEDS: guaiFENesin SUGAR FREE 200 MG/10 ML UDC PO SCH ×4 (04:04→21:39)
[2022-07-24] MEDS: ALBUTEROL 0.5% NEB SOLN 2.5 MG/0.5 ML VIAL NEB SCH ×4 (06:57→19:54)
[2022-07-24 09:30] LABS: Hematocrit (blood only) 26.2 % (40.1-51.0); Hemoglobin 9.5 g/dl (14.0-18.0); Mean Corpuscular Hemoglobin 41.1 pg (25.0-34.0); Mean Corpuscular Hgb Conc 36.3 g/dL (32.0-36.0); Mean Corpuscular Volume 113.4 fL (80.0-100.0); Mean Platelet Volume 10.3 fL (9.4-12.4); Nucleated RBC # (auto) 0.04 K/uL (0-0); Nucleated RBC % (auto) 0.2 %; Platelet Count 260 K/uL (130-400); RDW Coefficient of Variation 14.1 % (11.5-14.5); Red Blood Count 2.31 M/uL (4.63-6.08); White Blood Count 20.55 K/ul (4.8-10.8)
[2022-07-24 09:54] LABS: Albumin Globulin Ratio 0.9 (0.9-2); Albumin Level 3.1 gm/dl (3.4-5.0); BUN Creatinine Ratio 30.1 (10-20); Bilirubin,Total 1.1 mg/dl (0.2-1.0); C Reactive Protein 24.53 mg/dl (0-0.5); Calcium 9.4 mg/dl (8.5-10.1); Creatinine Clr Calc Pharmacy 42.5 ml/min; Est GFR (African American) 61.7 ml/min; Est GFR (Non-African American) 53.2 ml/min; Globulin 3.4 gm/dl (2.5-4.0); Total Protein 6.5 gm/dl (6.0-8.3)
[2022-07-24 10:03] LABS: Basophils # (auto) 0.03 K/uL (0-0.2); Basophils % (auto) 0.1 %; Immature Granulocytes # (auto) 0.23 K/uL (0.00-0.02); Immature Granulocytes % (auto) 1.1 %; Lymphocytes % (auto) 1.9 %; Monocytes # (auto) 0.44 K/uL (0.24-0.82); Monocytes % (auto) 2.1 %; Neutrophils # (auto) 19.45 K/uL (1.4-6.5); Neutrophils % (auto) 94.8 %; Ovalocytes 1+; Polychromasia 1+; Tear Drop Cells 1+
[2022-07-24] MEDS: AMIODARONE 200 MG TAB PO SCH (10:05)
[2022-07-24] MEDS: dexAMETHasone 6 MG in SYRINGE 0 ML IV SCH ×2 (10:05→21:40)
[2022-07-24] MEDS: PANTOprazole 40 MG TAB PO SCH (10:06)
[2022-07-24] MEDS: LEVOTHYROXINE SODIUM 100 MCG TABLET PO SCH (10:06)
[2022-07-24] MEDS: RANOLAZINE 500 MG ER TAB PO SCH ×2 (10:06→21:39)
[2022-07-24] MEDS: FOLIC ACID 1 MG TAB PO SCH (10:06)
[2022-07-24] MEDS: ASPIRIN 81 MG ECTAB PO SCH (10:06)
[2022-07-24] MEDS: FUROSEMIDE 20 MG TAB PO SCH (10:07)
[2022-07-24] MEDS: allopurinoL 300 MG TAB PO SCH (10:07)
[2022-07-24] MEDS: ASCORBIC ACID 500 MG TAB PO SCH (10:07)
[2022-07-24] MEDS: CLOPIDOGREL BISULFATE 75 MG TAB PO SCH (10:07)
[2022-07-24] MEDS: METOPROLOL SUCC 50MG EXT REL TAB PO SCH (10:08)
--- NOTE | 2022-07-24 17:03 | XRay Report ---
XR chest 1V portable CLINICAL HISTORY: Shortness of breath. COMPARISON STUDY: Chest radiograph July 22, 2022. FINDINGS: Left subclavian pacer/AICD is in place. Cardiomegaly is unchanged. No pneumothorax is prese nt. There is a trace left pleural effusion. Right lung airspace opacities have progressed. Left lung airspace opacities are similar to prior exam. There is mild interstitial thickening. Calcified medias tinal lymph nodes are incidentally noted. IMPRESSION: Multifocal bilateral airspace opacities, greater within the right lung. These opacities have mildly progressed and favor multifocal pneumonia. Pulmonary edema could appear similar although is considered less likely. ACT 112: Negative or not required by law. Electronically signed by: Dwaine Schmidt M.D. 07/24/2022 5:02 PM
[2022-07-24] MEDS: AZITHROMYCIN 500 MG in DEXTROSE 5% 250 ML IV SCH (17:27)
[2022-07-24] MEDS: ENOXAPARIN INJ 40 MG/0.4 ML SYR SQ SCH (17:30)
[2022-07-24] MEDS ORDERED: FUROSEMIDE 40 MG/4 ML VIAL IV ONE (18:52)
--- NOTE | 2022-07-24 22:05 | Hospitalist Progress Note ---
Date of Service July 24, 2022 Assessment & Plan (1) Acute respiratory failure with hypoxia: Plan: -Admit to med/tele -Patient is currently afebirle, hemodynamically stable, and stable on 3L NC -Hypoxic is liekly multifactorial at this time including covid pneumonia with possible superimposed bacterial pneumonia as he has a significant leukocytosis with left shift, procal is slightly elevated at 0.54 -BNP elevated at 615, patient not significantly volume overloaded, received 1L NSS bolus in ED, will give one dose of 40 mg IV lasix now and continue to monitor volume status -Will add on ferritin, CK, ESR, and CRP -Confirmed he has been previously vaccinated and received covid booster but unsure of brand and last dose -Will start ceftriaxone and azithromycin for now with possible superimposed bacterial pneumonia, will wait to give first dose until blood cultures and sputum culture are obtained -Received 10 mg IV dexamethasone, robitussin, and DuoNeb in the ED -Monitor on tele and pulse ox, prn O2 ordered -Will continue Dex with 6 mg IV daily, complete 10 day course, prn albuterol q6h, prn tylenol, scheduled robitussin -Continue incentive spirometry and flutter therapy -Patient does not wear O2 at baseline, wean as able -AM CBC and CMP On 07/24 worse inflammatory markers added lasix, increased dexa recommend prone position (2) Pneumonia due to COVID-19 virus: Plan: as above. Concern over inflammatory markers going up. increased decadron to BID dosing. (3) Anemia: Plan: -Patient's Hgb is at 9.0 today, down from 11.9 as of 05/09/21 -Has a history of macrocytic anemia, MCV elevated today, will add on B12 and folate levels -Patient noted one bloody bowel movement last week, no others since -BUN mildly elevated at 24, will hold chemical DVT PPX for now, if any other episodes then would consult GI (4) Macrocytosis: Plan: -No chest pain -Continue aspirin, plavix, metoprolol, and ranolazine (5) Coronary artery disease: (6) ICD (implantable cardioverter-defibrillator) in place: Plan: due to severe systolic cardiomyopathy (7) Hyperlipidemia: (8) Hypothyroidism: Plan: resume home meds (9) Cardiomyopathy: Plan: -BNP elevated at 615, no baseline available -Received 1L NSS in the ED prior to admission -WIll give repeat 40 mg IV lasix now on 07/25 (10) Elevated LFTs: Plan: -No abdominal pain or jaundice -Likely due to current covid infection -Continue to monitor for now and trend LFTS Admission and Anticipated Discharge Date Admission Date: July 22, 2022 Subjective 86 yo male reports feeling well despite requiring more oxygen. Coughing less however. Review of Systems Review of Systems: All systems reviewed & are unremarkable except as noted in HPI & below Physical Exam Physical Exam: General: In no acute distress, stated age, well-nourished, good hygiene, non-toxic appearing HEENT: Normocephalic, atraumatic, no scleral icterus, pupils around round, symmetrical, and reactive to light, DRY mucus membranes, trachea midline, no thyromegaly Chest/Pulm: Currently on 3L via NC, ICD in place in the left upper chest without signs of infection, No respiratory distress, symmetrical chest expansion, expiratory wheezing noted throughout Cardiac: RRR, systolic murmurs noted Abdomen: Negative for ascites and bruising, normoactive bowel sounds, soft, non- tender to palpation throughout Musculoskeletal: Symmetrical and without signs of acute trauma, upper and lower extremities with full ROM, no atrophy, spasticity, or flaccidity Extremities: Radial, dorsalis pedis, and posterior tibial pulses are intact and symmetrical, no edema noted in the BL LE's Skin: Warm, dry, no rashes , lesions, or scars noted Neuro: Alert and oriented to person, place, month, year, and president, no focal defects, CN II-XII tested and intact, finger to nose test negative, no tremors noted Psych: No acute distress, calm and cooperative during the exam Results & Data Results & Data ([facility]) Vital Signs (Past 12 Hours) Vital Signs Temp Pulse Pulse Resp BP Pulse Ox O2 Del Method 07/24/22 20:04 36.6 C 74 20 104/60 92 High Flow Nasal Cannula 07/24/22 19:54 72 18 99 Nasal Cannula 07/24/22 17:30 93 High Flow Nasal Cannula 07/24/22 16:55 36.5 C 62 18 112/63 82 L 07/24/22 15:53 64 07/24/22 15:15 69 18 86 L Nasal Cannula 07/24/22 15:36 91 High Flow Nasal Cannula 07/24/22 12:02 36.4 C L 65 18 93/52 L 87 L 07/24/22 11:38 Nasal Cannula 07/24/22 10:53 62 18 91 Nasal Cannula 07/24/22 10:13 93 Nasal Cannula 07/24/22 10:08 101/66 90 Nasal Cannula O2 Flow Rate 07/24/22 20:04 12 07/24/22 19:54 11 07/24/22 17:30 12 07/24/22 16:55 11 07/24/22 15:53 07/24/22 15:15 5 07/24/22 15:36 11 07/24/22 12:02 5 07/24/22 11:38 3 07/24/22 10:53 3 07/24/22 10:13 3 07/24/22 10:08 4 PG Care Time/CCT Total # of Minutes Spent Total Time Spent with Patient: Total time spent is greater than 50% in coordination of care (as documented) at patient's floor/unit and/or counseling patient: Coding Level of Care Code 14017 Subseq Hosp Care Lvl 3 Diagnoses Acute respiratory failure with hypoxia J96.01 Pneumonia due to COVID-19 virus U07.1; J12.82 Anemia D64.9 Macrocytosis D75.89 Coronary artery disease I25.10 ICD (implantable cardioverter-defibrillator) in place Z95.810 Hyperlipidemia E78.5 Hypothyroidism E03.9 Cardiomyopathy I25.5 Cardiomyopathy type: ischemic Elevated LFTs R79.89 (1) Cardiomyopathy Cardiomyopathy type: ischemic Qualified Code(s): I25.5 - Ischemic cardiomyopathy
[2022-07-25] MEDS: guaiFENesin SUGAR FREE 200 MG/10 ML UDC PO SCH ×4 (02:48→21:07)
[2022-07-25] MEDS: ENOXAPARIN INJ 40 MG/0.4 ML SYR SQ SCH ×2 (05:50→16:01)
[2022-07-25] MEDS: ALBUTEROL 0.5% NEB SOLN 2.5 MG/0.5 ML VIAL NEB SCH ×4 (07:02→18:58)
[2022-07-25] MEDS: FUROSEMIDE 20 MG TAB PO SCH (08:10)
[2022-07-25] MEDS: dexAMETHasone 6 MG in SYRINGE 0 ML IV SCH ×2 (08:10→21:07)
[2022-07-25] MEDS: AMIODARONE 200 MG TAB PO SCH (08:11)
[2022-07-25] MEDS: RANOLAZINE 500 MG ER TAB PO SCH ×2 (08:11→21:07)
[2022-07-25] MEDS: ASPIRIN 81 MG ECTAB PO SCH (08:11)
[2022-07-25] MEDS: ASCORBIC ACID 500 MG TAB PO SCH (08:11)
[2022-07-25] MEDS: PANTOprazole 40 MG TAB PO SCH (08:12)
[2022-07-25] MEDS: LEVOTHYROXINE SODIUM 100 MCG TABLET PO SCH (08:12)
[2022-07-25] MEDS: allopurinoL 300 MG TAB PO SCH (08:12)
[2022-07-25] MEDS: CLOPIDOGREL BISULFATE 75 MG TAB PO SCH (08:12)
[2022-07-25] MEDS: FOLIC ACID 1 MG TAB PO SCH (08:12)
[2022-07-25 08:13] LABS: Hemoglobin 9.1 g/dl (14.0-18.0); Mean Corpuscular Hemoglobin 39.9 pg (25.0-34.0); Mean Corpuscular Hgb Conc 36.4 g/dL (32.0-36.0); Mean Corpuscular Volume 109.6 fL (80.0-100.0); Mean Platelet Volume 10.3 fL (9.4-12.4); Nucleated RBC # (auto) 0.04 K/uL (0-0); Nucleated RBC % (auto) 0.3 %; Platelet Count 237 K/uL (130-400); RDW Coefficient of Variation 13.6 % (11.5-14.5); RDW Standard Deviation 54.4 fL (36.4-46.3); Red Blood Count 2.28 M/uL (4.63-6.08); White Blood Count 13.82 K/ul (4.8-10.8)
[2022-07-25] MEDS: METOPROLOL SUCC 50MG EXT REL TAB PO SCH (08:37)
[2022-07-25 08:40] LABS: Basophils # (auto) 0.02 K/uL (0-0.2); Basophils % (auto) 0.1 %; Echinocytes 2+; Immature Granulocytes # (auto) 0.21 K/uL (0.00-0.02); Immature Granulocytes % (auto) 1.5 %; Lymphocytes % (auto) 3.6 %; Monocytes % (auto) 2.2 %; Neutrophils # (auto) 12.79 K/uL (1.4-6.5); Neutrophils % (auto) 92.6 %
[2022-07-25 08:58] LABS: Albumin Level 3.1 gm/dl (3.4-5.0); BUN Creatinine Ratio 33.3 (10-20); Bilirubin,Total 0.9 mg/dl (0.2-1.0); C Reactive Protein 17.78 mg/dl (0-0.5); Calcium 9.3 mg/dl (8.5-10.1); Creatinine Clr Calc Pharmacy 42.5 ml/min; Est GFR (African American) 61.7 ml/min; Est GFR (Non-African American) 53.2 ml/min; Globulin 3.2 gm/dl (2.5-4.0); Potassium 3.9 mmol/L (3.5-5.1); Total Protein 6.3 gm/dl (6.0-8.3)
[2022-07-25] MEDS ORDERED: BARICITINIB COMMUNICATION ONE (09:11)
[2022-07-25] MEDS ORDERED: FUROSEMIDE 40 MG/4 ML VIAL IV ONE (09:15)
[2022-07-25] MEDS ORDERED: REMDESIVIR 200 MG in SODIUM CHLORIDE 0.9% 210 ML IV STA (09:19)
[2022-07-25] MEDS: BARICITINIB 2 MG TAB PO SCH (10:32)
--- NOTE | 2022-07-25 12:58 | Cardiology Consultation ---
Date of Consultation July 25, 2022 Assessment & Plan (1) Pneumonia due to COVID-19 virus: -still on high-flow oxygen. -management per hospitalist's team. (2) Coronary artery disease: -extensive history as described above. 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 -has not experienced any recent angina pectoris. -continue metoprolol, ranolazine, aspirin, clopidogrel, and atorvastatin. (3) Cardiomyopathy: -LVEF of 25-30% on echocardiogram March 22, 2022. -continue metoprolol succinate. -hypotension has limited the use of an ARB/ACEI. -continue amiodarone for history of recurrent V-tach. (4) ICD (implantable cardioverter-defibrillator), dual, in situ: -normal interrogation on June 12, 2022. History of Present Illness Attending Physician: Rahul Meek History of Present Illness Mr. Jones is an 86-year-old male admitted on July 22 with acute respiratory failure related to COVID pneumonia. This consultation was ordered to assist in the patient's cardiac management. Of note, the patient is well known to me from the outpatient setting. The patient was in his usual state of health until approximately 1 week prior to presentation. He began to notice upper respiratory symptoms and tested positive for COVID on July 18. His respiratory status declined and required an evaluation in the emergency room. The patient has a longstanding history of coronary artery disease. He had an RCA stent placed in the right coronary back in April 2002. Other disease included a totally obstructed proximal LAD with good distal collateralization. Another cardiac catheterization performed in March 2019 again noted the a totally obstructed proximal LAD with collateralization. There was a 99% distal RCA stenosis with distal collateralization and evidence of an infarcted inferior wall and apex. Medical management was suggested at that time. 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 He also had 2 drug-eluting stents placed within the RCA. He also has an ischemic cardiomyopathy with ejection fraction of 25-30%. He had a dual-chamber ICD placed in June 2019. He continues close follow-up with Dr. Bolden for his device. He was placed on amiodarone due to recurrent ventricular tachycardia. Past medical and surgical history 1. Coronary artery disease-see above 2. RCA stent-April 2002 3. 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 Ischemic doegchcxkudlmi-02-21% 6. Apical akinesis 7. Ventricular tachycardia 8. Xfir-fz-cjblsups mitral regurgitation 9. Incomplete LBBB 10. Dual chamber ICD-June 2019 11. Hypertension 12. Hypercholesterolemia 13. Cerebrovascular disease 14. Hypothyroidism 15. Chronic renal failure 16. GERD 17. Gout 18. Hearing deficit 19. Vasectomy Social history and lives with his No tobacco Occasional alcohol Family history Noncontributory Review of systems A 10 point review systems was undertaken and negative except for that described above. Allergies Allergy/AdvReac Type Severity Reaction Status Date / Time No Known Drug Allergies Allergy Unknown Verified 06/12/22 13:14 Home Medications Medication Instructions Recorded Confirmed Type aspirin 81 mg tablet 81 mg PO DAILY 06/02/19 07/22/22 History nitroglycerin 0.4 mg sublingual 0.4 mg sublingual Q5M PRN Chest 06/02/19 07/22/22 History tablet Pain #25 tabs ascorbic acid (vitamin C) 250 mg 250 mg PO DAILY 07/08/19 07/22/22 History tablet (Vitamin C) multivitamin 1 cap PO DAILY 07/08/19 07/22/22 History allopurinol 300 mg tablet 300 mg PO DAILY #90 tabs 07/05/20 07/22/22 Rx levothyroxine 100 mcg capsule 100 mcg PO DAILY 07/19/20 07/22/22 History omeprazole 20 mg capsule,delayed 20 mg PO DAILY #30 caps 08/02/20 07/22/22 Rx release clopidogrel 75 mg tablet (Plavix) 75 mg PO DAILY #90 tabs 06/13/21 07/22/22 Rx ranolazine 500 mg tablet,extended 500 mg PO BID #180 tabs 01/09/22 07/22/22 Rx release,12 hr atorvastatin 20 mg tablet 20 mg PO DAILY 05/22/22 07/22/22 History metoprolol succinate 100 mg 100 mg PO DAILY #90 tabs 05/22/22 07/22/22 Rx tablet,extended release 24 hr amiodarone 200 mg tablet 200 mg PO DAILY 06/12/22 07/22/22 History furosemide 40 mg tablet (Lasix) 20 mg PO DAILY PRN weight gain #30 08/29/22 10/08/22 Rx tabs Patient History Medical History Congenital heart disease Hyperlipidemia Hypothyroidism ICD (implantable cardioverter-defibrillator) in place Myocardial Infarction SBO (small bowel obstruction) Ventricular tachycardia Surgical History History of heart artery stent 04/01/20 at [facility] [place] History of implantable cardioverter-defibrillator (ICD) placement Family History Brother Hx of CABG Sister Myocardial infarction Social History Smoking Status: Never smoker Second Hand Exposure: No; Tobacco Cessation Education Requested by Patient: No Hx Alcohol Use: No Hx Substance Use: No Preferred Language: Micronesian Communication Ability: Effective Litigation Specialist Required: No Beliefs That Will Affect Care: None marital status: Current Living Situation: Spouse Current Living Situation Comment: home 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 Meek as patient in [facility] isolation. Results & Data ([facility]) Vital Signs (Past 12 Hours) Vital Signs Temp Pulse Pulse Resp BP Pulse Ox Pulse Ox 07/25/22 10:32 68 18 93 07/25/22 09:30 07/25/22 08:58 66 22 95 07/25/22 08:38 105/64 07/25/22 07:23 60 07/25/22 07:03 56 L 18 96 07/25/22 04:15 88 L 07/25/22 04:00 36.6 C 62 20 102/63 90 07/25/22 04:47 96 07/25/22 03:00 95 07/25/22 02:15 95 07/25/22 02:00 89 L 07/25/22 01:44 07/25/22 06:00 94 07/25/22 05:57 85 L 07/25/22 01:30 95 O2 Del Method O2 Del Method O2 Flow Rate O2 Flow Rate FiO2 07/25/22 10:32 High Flow Nasal Cannula 35 65 07/25/22 09:30 High Flow Nasal Cannula 35 60 07/25/22 08:58 Oxyhood 35 65 07/25/22 08:38 07/25/22 07:23 07/25/22 07:03 Oxymask 10 07/25/22 04:15 Oxymask 12 07/25/22 04:00 High Flow Nasal Cannula 11 07/25/22 04:47 Oxymask 6 07/25/22 03:00 Oxymask 9 07/25/22 02:15 Oxymask 9 07/25/22 02:00 Oxymask 5 07/25/22 01:44 Nasal Cannula 5 07/25/22 06:00 Oxymask 10 07/25/22 05:57 Oxymask 6 07/25/22 01:30 Oxymask 5 Laboratory Results CBC notes hemoglobin of 9.1, hematocrit 25.0, white count 13.8, a platelet count of 237 1000. Electrolytes note a sodium of 136, potassium 3.9, chloride 101, bicarb 26, BUN 41, creatinine 1.23, glucose of 160. High sensitivity troponin is normal at 16.5. AST is elevated 62 and ALT is elevated 140. C-reactive protein is elevated 24.5. BNP is elevated 529. Diagnostic Findings EKG notes atrial pacing with PACs and PVCs. There is poor R-wave progression across the anterior precordium. And interventricular conduction delay is noted. Chest x-ray notes cardiomegaly, a left-sided ICD, and diffuse airspace opacities. PG Care Time/CCT Total # of Minutes Spent Total Time Spent with Patient: Total time spent is greater than 50% in coordination of care (as documented) at patient's floor/unit and/or counseling patient: Coding Level of Care Code 49030 Initial Inpt Care Lvl 3 Diagnoses Pneumonia due to COVID-19 virus U07.1; J12.82 Coronary artery disease I25.10 Cardiomyopathy I25.5 Cardiomyopathy type: ischemic ICD (implantable cardioverter-defibrillator), dual, in situ Z95.810 (1) Cardiomyopathy Cardiomyopathy type: ischemic Qualified Code(s): I25.5 - Ischemic car diomyopathy
[2022-07-25] MEDS: AZITHROMYCIN 500 MG in DEXTROSE 5% 250 ML IV SCH (16:00)
--- NOTE | 2022-07-25 22:16 | Hospitalist Progress Note ---
Date of Service July 25, 2022 Assessment & Plan (1) Acute respiratory failure with hypoxia: Plan: -Admit to med/tele -Patient is currently afebirle, hemodynamically stable, and stable on 3L NC -Hypoxic is liekly multifactorial at this time including covid pneumonia with possible superimposed bacterial pneumonia as he has a significant leukocytosis with left shift, procal is slightly elevated at 0.54 -BNP elevated at 615, patient not significantly volume overloaded, received 1L NSS bolus in ED, will give one dose of 40 mg IV lasix now and continue to monitor volume status -Will add on ferritin, CK, ESR, and CRP -Confirmed he has been previously vaccinated and received covid booster but unsure of brand and last dose -Will start ceftriaxone and azithromycin for now with possible superimposed bacterial pneumonia, will wait to give first dose until blood cultures and sputum culture are obtained -Received 10 mg IV dexamethasone, robitussin, and DuoNeb in the ED -Monitor on tele and pulse ox, prn O2 ordered -Will continue Dex with 6 mg IV daily, complete 10 day course, prn albuterol q6h, prn tylenol, scheduled robitussin -Continue incentive spirometry and flutter therapy -Patient does not wear O2 at baseline, wean as able -AM CBC and CMP On 07/24 worse inflammatory markers added lasix, increased dexa recommend prone position On 07/25 Inflammatory markers are slightly imrpoved Clinically worsening. Patient is now on 35 liters high flow. Patient remains a full code. Added remdesevir/baricitinib Patient qualifies for these medicines. will monitor INformed . continue BID steroids. (2) Pneumonia due to COVID-19 virus: Plan: as above. Concern over inflammatory markers going up. increased decadron to BID dosing. (3) Anemia: Plan: -Patient's Hgb is at 9.0 today, down from 11.9 as of 05/09/21 -Has a history of macrocytic anemia, MCV elevated today, will add on B12 and folate levels -Patient noted one bloody bowel movement last week, no others since -BUN mildly elevated at 24, will hold chemical DVT PPX for now, if any other episodes then would consult GI (4) Macrocytosis: Plan: -No chest pain -Continue aspirin, plavix, metoprolol, and ranolazine (5) Coronary artery disease: (6) ICD (implantable cardioverter-defibrillator) in place: Plan: due to severe systolic cardiomyopathy (7) Hyperlipidemia: (8) Hypothyroidism: Plan: resume home meds (9) Cardiomyopathy: Plan: -BNP elevated at 615, no baseline available -Received 1L NSS in the ED prior to admission -WIll give repeat 40 mg IV lasix now on 07/25 (10) Elevated LFTs: Plan: -No abdominal pain or jaundice -Likely due to current covid infection -Continue to monitor for now and trend LFTS Admission and Anticipated Discharge Date Admission Date: July 22, 2022 Subjective Patient appears comfortable. Review of Systems Review of Systems: All systems reviewed & are unremarkable except as noted in HPI & below Physical Exam Physical Exam: General: In no acute distress, stated age, well-nourished, good hygiene, non-toxic appearing, on high flow oxygen HEENT: Normocephalic, atraumatic, no scleral icterus, pupils around round, symmetrical, and reactive to light, DRY mucus membranes, trachea midline, no thyromegaly Chest/Pulm: Currently on 3L via NC, ICD in place in the left upper chest without signs of infection, No respiratory distress, symmetrical chest expansion, expiratory wheezing noted throughout Cardiac: RRR, systolic murmurs noted Abdomen: Negative for ascites and bruising, normoactive bowel sounds, soft, non- tender to palpation throughout Musculoskeletal: Symmetrical and without signs of acute trauma, upper and lower extremities with full ROM, no atrophy, spasticity, or flaccidity Extremities: Radial, dorsalis pedis, and posterior tibial pulses are intact and symmetrical, no edema noted in the BL LE's Skin: Warm, dry, no rashes , lesions, or scars noted Neuro: Alert and oriented to person, place, month, year, and president, no focal defects, CN II-XII tested and intact, finger to nose test negative, no tremors noted Psych: No acute distress, calm and cooperative during the exam Results & Data Results & Data ([facility]) Vital Signs (Past 12 Hours) Vital Signs Temp Pulse Pulse Resp BP Pulse Ox O2 Del Method 07/25/22 19:20 36.6 C 65 22 104/60 95 High Flow Nasal Cannula 07/25/22 18:59 63 22 92 High Flow Nasal Cannula 07/25/22 17:44 36.7 C 64 14 102/64 88 L High Flow Nasal Cannula 07/25/22 15:24 70 18 91 High Flow Nasal Cannula 07/25/22 15:12 66 07/25/22 10:32 68 18 93 High Flow Nasal Cannula O2 Flow Rate FiO2 07/25/22 19:20 11 07/25/22 18:59 40 100 07/25/22 17:44 35 60 07/25/22 15:24 35 60 07/25/22 15:12 07/25/22 10:32 35 65 PG Care Time/CCT Total # of Minutes Spent Total Time Spent with Patient: Total time spent is greater than 50% in coordination of care (as documented) at patient's floor/unit and/or counseling patient: Critical Care Time: Yes Total Critical Care Time: 65 65 THis is a life threatening emergency, as patient is in severe acute respiratory failure. Coding Level of Care Code 66477 Subseq Hosp Care Lvl 3 (25 - SIGNIFICANT, SEPARATELY IDENTIFIABLE ) Diagnoses Acute respiratory failure with hypoxia J96.01 Pneumonia due to COVID-19 virus U07.1; J12.82 Anemia D64.9 Macrocytosis D75.89 Coronary artery disease I25.10 ICD (implantable cardioverter-defibrillator) in place Z95.810 Hyperlipidemia E78.5 Hypothyroidism E03.9 Cardiomyopathy I25.5 Cardiomyopathy type: ischemic Elevated LFTs R79.89 Additional Codes Critical Care Time - Critical Care Time: Yes ([id number]) (1) Cardiomyopathy Cardiomyopathy type: ischemic Qualified Code(s): I25.5 - Ischemic cardiomyopathy
[2022-07-26] MEDS: guaiFENesin SUGAR FREE 200 MG/10 ML UDC PO SCH ×4 (02:56→21:27)
[2022-07-26] MEDS: ENOXAPARIN INJ 40 MG/0.4 ML SYR SQ SCH ×2 (04:56→16:13)
[2022-07-26] MEDS: ALBUTEROL 0.5% NEB SOLN 2.5 MG/0.5 ML VIAL NEB SCH ×4 (07:27→19:35)
[2022-07-26 08:00] LABS: Hematocrit (blood only) 24.8 % (40.1-51.0); Mean Corpuscular Hemoglobin 40.5 pg (25.0-34.0); Mean Corpuscular Hgb Conc 36.3 g/dL (32.0-36.0); Mean Corpuscular Volume 111.7 fL (80.0-100.0); Mean Platelet Volume 9.9 fL (9.4-12.4); Nucleated RBC # (auto) 0.02 K/uL (0-0); Nucleated RBC % (auto) 0.1 %; Platelet Count 225 K/uL (130-400); RDW Coefficient of Variation 13.3 % (11.5-14.5); RDW Standard Deviation 54.4 fL (36.4-46.3); Red Blood Count 2.22 M/uL (4.63-6.08); White Blood Count 14.01 K/ul (4.8-10.8)
[2022-07-26 08:20] LABS: Bilirubin Direct 0.2 mg/dl (0-0.2); Bilirubin,Total 0.8 mg/dl (0.2-1.0); Total Protein 6.1 gm/dl (6.0-8.3)
[2022-07-26] MEDS: dexAMETHasone 6 MG in SYRINGE 0 ML IV SCH ×2 (08:21→21:26)
[2022-07-26] MEDS: METOPROLOL SUCC 50MG EXT REL TAB PO SCH (08:22)
[2022-07-26] MEDS: FOLIC ACID 1 MG TAB PO SCH (08:22)
[2022-07-26] MEDS: RANOLAZINE 500 MG ER TAB PO SCH ×2 (08:22→21:27)
[2022-07-26] MEDS: CLOPIDOGREL BISULFATE 75 MG TAB PO SCH (08:23)
[2022-07-26] MEDS: AMIODARONE 200 MG TAB PO SCH (08:23)
[2022-07-26] MEDS: allopurinoL 300 MG TAB PO SCH (08:23)
[2022-07-26] MEDS: ASCORBIC ACID 500 MG TAB PO SCH (08:24)
[2022-07-26] MEDS: PANTOprazole 40 MG TAB PO SCH (08:24)
[2022-07-26] MEDS: ASPIRIN 81 MG ECTAB PO SCH (08:24)
[2022-07-26] MEDS: LEVOTHYROXINE SODIUM 100 MCG TABLET PO SCH (08:25)
[2022-07-26] MEDS: BARICITINIB 2 MG TAB PO SCH (10:04)
[2022-07-26 10:51] LABS: Creatinine Clr Calc Pharmacy 47.1 ml/min; Est GFR (African American) 69.8 ml/min; Est GFR (Non-African American) 60.2 ml/min
[2022-07-26] MEDS: REMDESIVIR 100 MG in SODIUM CHLORIDE 0.9% 230 ML IV SCH (11:43)
[2022-07-26] MEDS: AZITHROMYCIN 500 MG in DEXTROSE 5% 250 ML IV SCH (16:13)
--- NOTE | 2022-07-26 21:48 | Hospitalist Progress Note ---
Date of Service July 26, 2022 Assessment & Plan (1) Acute respiratory failure with hypoxia: Plan: Patient admitted with COVID 19 on 07/22 Initiallly, patient was presenting as the typical omicron patient, tolerated between 3 and 5 liters nasal cannula. However, his oxygen level worsened and required 11 liters, inflmmatory markers were elevated and increased dexamethasone to BID dosing. On 07/25, added remdesevir and baricitinib. Updated his on 07/25 and 07/26 Patient has also intermittently required IV lasix, to keep him on the dry side, Patient also has severe cardiomyopathy. Oxygen level has worsened and is now on 40 liters, chart review states that at 19:00 patient is now on 50 liters high flow. Patient changed his code status to DNR?DNI on 07/26 Patient is on azithromycin, procal appears to be negative. HOlding off further treatment for superimposed bacterial pneumonia. (2) Pneumonia due to COVID-19 virus: Plan: as above. Concern over inflammatory markers going up. increased decadron to BID dosing. (3) Anemia: Plan: -Patient's Hgb is at 9.0 today, down from 11.9 as of 05/09/21 -Has a history of macrocytic anemia, MCV elevated today, will add on B12 and folate levels -Patient noted one bloody bowel movement last week, no others since -placed on lovenox. hemoglobin has been stable (4) Macrocytosis: Plan: -No chest pain -Continue aspirin, plavix, metoprolol, and ranolazine (5) Coronary artery disease: (6) ICD (implantable cardioverter-defibrillator) in place: Plan: due to severe systolic cardiomyopathy (7) Hyperlipidemia: (8) Hypothyroidism: Plan: resume home meds (9) Cardiomyopathy: Plan: Acute on chronic HFrEF treated and resolved -BNP elevated at 615, no baseline available -Received 1L NSS in the ED prior to admission -WIll give repeat 40 mg IV lasix now on 07/25 Place on daily lasix on 07/26, first dose will be 07/27 (10) Elevated LFTs: Plan: -No abdominal pain or jaundice -Likely due to current covid infection -Continue to monitor for now and trend LFTS Admission and Anticipated Discharge Date Admission Date: July 22, 2022 Subjective Patient reports being comfortable however, he has been requiring more oxygen over past few days. Review of Systems Review of Systems: All systems reviewed & are unremarkable except as noted in HPI & below Physical Exam Physical Exam: General: In no acute distress, stated age, well-nourished, good hygiene, non-toxic appearing, on high flow oxygen HEENT: Normocephalic, atraumatic, no scleral icterus, pupils around round, symmetrical, and reactive to light, trachea midline, no thyromegaly Chest/Pulm: On high flow, bilateral rhonchi heard, ICD in place in the left upper chest without signs of infection, No respiratory distress, symmetrical chest expansion Cardiac: RRR, systolic murmurs noted Abdomen: Negative for ascites and bruising, normoactive bowel sounds, soft, non- tender to palpation throughout Musculoskeletal: Symmetrical and without signs of acute trauma, upper and lower extremities with full ROM, no atrophy, spasticity, or flaccidity Extremities: Radial, dorsalis pedis, and posterior tibial pulses are intact and symmetrical, no edema noted in the BL LE's Skin: Warm, dry, no rashes , lesions, or scars noted Neuro: Alert and oriented to person, place, month, year, and president, no focal defects, CN II-XII tested and intact, finger to nose test negative, no tremors noted Psych: No acute distress, calm and cooperative during the exam Results & Data Results & Data ([facility]) Vital Signs (Past 12 Hours) Vital Signs Temp Pulse Pulse Pulse Resp BP Pulse Ox 07/26/22 19:36 65 20 96 07/26/22 18:45 20 90 07/26/22 17:02 100 07/26/22 16:19 36.5 C 66 22 108/63 90 07/26/22 14:20 66 07/26/22 14:50 60 18 99 07/26/22 13:05 36.5 C 64 20 112/62 92 07/26/22 09:57 66 07/26/22 10:24 07/26/22 10:09 66 20 96 07/26/22 10:08 96 07/26/22 10:07 77 22 97 07/26/22 10:06 66 20 97 07/26/22 10:00 36.5 C 65 22 105/61 98 O2 Del Method O2 Flow Rate FiO2 07/26/22 19:36 40 60 07/26/22 18:45 High Flow Nasal Cannula 40 80 07/26/22 17:02 High Flow Nasal Cannula 40 75 07/26/22 16:19 High Flow Nasal Cannula 40 70 07/26/22 14:20 07/26/22 14:50 High Flow Nasal Cannula 40 90 07/26/22 13:05 High Flow Nasal Cannula 40 90 07/26/22 09:57 07/26/22 10:24 High Flow Nasal Cannula 40 80 07/26/22 10:09 High Flow Nasal Cannula 40 80 07/26/22 10:08 80 07/26/22 10:07 High Flow Nasal Cannula 40 100 07/26/22 10:06 High Flow Nasal Cannula 40 100 07/26/22 10:00 High Flow Nasal Cannula 40 100 PG Care Time/CCT Total # of Minutes Spent Total Time Spent with Patient: Total time spent is greater than 50% in coordination of care (as documented) at patient's floor/unit and/or counseling patient: Critical Care Time: Yes Total Critical Care Time: 65 This is a life threatening condition. Coding Level of Care Code 67372 Subseq Hosp Care Lvl 3 (25 - SIGNIFICANT, SEPARATELY IDENTIFIABLE ) Diagnoses Acute respiratory failure with hypoxia J96.01 Pneumonia due to COVID-19 virus U07.1; J12.82 Anemia D64.9 Macrocytosis D75.89 Coronary artery disease I25.10 ICD (implantable cardioverter-defibrillator) in place Z95.810 Hyperlipidemia E78.5 Hypothyroidism E03.9 Cardiomyopathy I25.5 Cardiomyopathy type: ischemic Elevated LFTs R79.89 Additional Codes Critical Care Time - Critical Care Time: Yes ([id number]) Time Spent (min) 65 (1) Cardiomyopathy Cardiomyopathy type: ischemic Qualified Code(s): I25.5 - Ischemic cardiomyopathy
[2022-07-27] MEDS: guaiFENesin SUGAR FREE 200 MG/10 ML UDC PO SCH ×4 (03:21→19:48)
[2022-07-27] MEDS: ENOXAPARIN INJ 40 MG/0.4 ML SYR SQ SCH (05:19)
[2022-07-27] MEDS: ALBUTEROL 0.5% NEB SOLN 2.5 MG/0.5 ML VIAL NEB SCH ×4 (07:01→19:26)
[2022-07-27 07:54] LABS: Albumin Level 3.1 gm/dl (3.4-5.0); BUN Creatinine Ratio 40.6 (10-20); Bilirubin Direct 0.2 mg/dl (0-0.2); C Reactive Protein 8.2 mg/dl (0-0.5); Calcium 9.2 mg/dl (8.5-10.1); Creatinine Clr Calc Pharmacy 54.4 ml/min; Est GFR (African American) 83.2 ml/min; Est GFR (Non-African American) 71.8 ml/min; Potassium 4.6 mmol/L (3.5-5.1); Total Protein 6.3 gm/dl (6.0-8.3)
[2022-07-27] MEDS: RANOLAZINE 500 MG ER TAB PO SCH ×2 (08:14→19:48)
[2022-07-27] MEDS: AMIODARONE 200 MG TAB PO SCH (08:15)
[2022-07-27] MEDS: PANTOprazole 40 MG TAB PO SCH (08:15)
[2022-07-27] MEDS: FOLIC ACID 1 MG TAB PO SCH (08:15)
[2022-07-27] MEDS: ASCORBIC ACID 500 MG TAB PO SCH (08:16)
[2022-07-27] MEDS: LEVOTHYROXINE SODIUM 100 MCG TABLET PO SCH (08:17)
[2022-07-27] MEDS: METOPROLOL SUCC 50MG EXT REL TAB PO SCH (08:18)
[2022-07-27] MEDS: allopurinoL 300 MG TAB PO SCH (08:18)
[2022-07-27] MEDS: ASPIRIN 81 MG ECTAB PO SCH (08:18)
[2022-07-27] MEDS: CLOPIDOGREL BISULFATE 75 MG TAB PO SCH (08:18)
[2022-07-27] MEDS ORDERED: PIPERACILLIN/TAZOBACTAM 3.375 GM in DEXTROSE 5% 100 ML IV ONE (09:00)
[2022-07-27] MEDS ORDERED: FUROSEMIDE 40 MG/4 ML VIAL IV SCH (09:00)
--- NOTE | 2022-07-27 09:01 | Hospitalist Progress Note ---
Date of Service July 27, 2022 Assessment & Plan (1) Acute respiratory failure with hypoxia: Plan: Patient admitted with COVID 19 on 07/22 Vaccinated Moderna 11/19/20 12/17/20; Booster 09/2021 Initial oxygen requirement 3-6 liters nasal cannula, on room air at baseline Inflammatory markers were elevated and increased dexamethasone to BID dosing on 07/24 O2 requirement appears to have suddenly worsened 07/25, currently requiring Hi Flow 40 LPM O2 with FiO2 100% On 07/25, added remdesevir and baricitinib. CRP improving. Major risk factors of age (86 years old) and severe cardiomyopathy (LVEF 25- 30%). Patient changed his code status to DNR/DNI on 07/26 - re-discussed intubation 07/27 with both patient and and both agree he would not want this if he was to get worse. Procalcitonin positive on admission and although trended down his WBC/neutrophilia was also elevated without prior steroids or other explanation of this therefore will add treatment for secondary bacterial pneumonia. At this time he has already had adequate treatment for atypical pneumonia with azithromycin 500mg IV for 5 days. Given he has been in hospital for 5 days will start Zosyn 3.375mg IV q8h for more typical coverage. CT for PE - negative for pulmonary emboli. (2) Pneumonia due to COVID-19 virus: Plan: As above (3) Cardiomyopathy: Plan: Acute on chronic HFrEF treated and resolved -BNP elevated at 615, no baseline available -Received 1L NSS in the ED prior to admission 07/23 - Lasix 20mg PO 07/24 - Lasix 20mg PO + Lasix 40mg IV 07/25 - Lasix 20mg PO + Lasix 40mg IV 07/26 - no Lasix 07/27 - given significant output and euvolemic state will continue to defer Lasix I&Os - balance -ve 3255ml this admission, -ve 2445ml last 24 hours despite no Lasix, although questionable accuracy given no oral input the last two days Weight 73kg from 78kg on admission Continue metoprolol succinate. Unable to tolerate Entresto due to low normal BP. (4) Acute on chronic HFrEF (heart failure with reduced ejection fraction): Plan: As above (5) Anemia: Plan: -Patient's admission Hgb is at 9.0 today, down from 11.9 as of 7/26/21 -Has a history of macrocytic anemia, MCV elevated. 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% on resting echo March, (8) Hyperlipidemia: Plan: Continue atorvastatin (9) Hypothyroidism: Plan: Continue levothyroxine TSH normal in February 2021 - will defer repeating given severe acute illness as above and not suspecting hypo/hyperthyroidism contributing (10) Elevated LFTs: Plan: -No abdominal pain or jaundice -Likely due to current covid infection -Continue to monitor for now and trend LFTS - downtrending therefore will continue remdesivir as above Plan VTE Prophylaxis - now on high flow oxygen and patient on dual antiplatelets will reduce Lovenox dosing to 40mg SQ daily Diet - heart healthy, low sodium Disposition - continued admission on PCU, prognosis guarded Admission and Anticipated Discharge Date Admission Date: July 22, 2022 Subjective Reports no change in his shortness of breath. No chest pain. No diarrhea. Non- productive cough. He reports eating a drinking well. Updated his over the phone - discussed life-threatening illness. Review of Systems Review of Systems: All systems reviewed & are unremarkable except as noted in Subjective Physical Exam Constitutional: WD/WN, vitals as above Eyes: + anicteric sclerae; normal pupil size ENMT: external ear and nose normal, oropharynx normal Neck: trachea midline, no thyromegaly Respiratory: normal respiratory effort; no respiratory distress Auscultation: + crackles (posteriorly fine); breath sounds present, no diminished lung sounds, no rales, no rhonchi and no wheezes Cardiovascular: RRR, no murmur, no edema Extremities: normal capillary refill; no calf tenderness and no pedal edema Gastrointestinal (Abdomen): normal bowel sounds, soft, nontender, no hepatosplenomegaly Musculoskeletal: no cyanosis or clubbing, extremities motor strength 5/5 Skin: no rashes, warm and dry Neurologic: moves all extremities and awake; no focal motor deficits and not confused Psychiatric: A+Ox3, euthymic affect Genitourinary: no CVA tenderness Results & Data Results & Data ([facility]) Vital Signs (Past 12 Hours) Vital Signs Temp Pulse Resp BP Pulse Ox O2 Del Method O2 Flow Rate 07/27/22 08:10 36.4 C L 75 20 96/60 L 90 High Flow Nasal Cannula 40 07/27/22 07:02 66 22 96 High Flow Nasal Cannula 40 07/27/22 05:13 36.6 C 69 18 100/50 L 94 High Flow Nasal Cannula 07/27/22 03:06 61 18 98 High Flow Nasal Cannula 40 07/26/22 23:34 60 16 96 High Flow Nasal Cannula 40 07/26/22 23:28 36.7 C 60 20 93/53 L 93 High Flow Nasal Cannula FiO2 07/27/22 08:10 100 07/27/22 07:02 60 07/27/22 05:13 07/27/22 03:06 60 07/26/22 23:34 60 07/26/22 23:28 PG Care Time/CCT Total # of Minutes Spent Total Time Spent with Patient: Total time spent is greater than 50% in coordination of care (as documented) at patient's floor/unit and/or counseling patient: Coding Level of Care Code 37720 Subseq Hosp Care Lvl 3 Diagnoses Acute respiratory failure with hypoxia J96.01 Pneumonia due to COVID-19 virus U07.1; J12.82 Cardiomyopathy I25.5 Cardiomyopathy type: ischemic Acute on chronic HFrEF (heart failure with reduced ejection fraction) I50.23 Anemia D64.9 Coronary artery disease I25.10 ICD (implantable cardioverter-defibrillator) in place Z95.810 Hyperlipidemia E78.5 Hypothyroidism E03.9 Elevated LFTs R79.89 (1) Cardiomyopathy Cardiomyopathy type: ischemic Qualified Code(s): I25.5 - Ischemic cardiomyo patti
--- NOTE | 2022-07-27 09:21 | XRay Report ---
XR chest 1V portable CLINICAL HISTORY: hypoxia COMPARISON STUDY: Chest radiograph July 24, 2022. FINDINGS: Left subclavian pacer/AICD is in place. Cardiomegaly is unchanged. There are may be trace b ilateral pleural effusions. There is no pneumothorax. Calcified thoracic lymph nodes are present. Mitchell ateral airspace opacities, greater within the right lung, are similar to prior exam. IMPRESSION: No significant change in bilateral airspace opacities, greater within the right lung. The findings fa vor an infectious process. Asymmetric pulmonary edema could appear similar but is considered less lik jose. ACT 112: Negative or not required by law. Electronically signed by: Dwaine Schmidt M.D. 07/27/2022 9:20 AM
[2022-07-27] MEDS: dexAMETHasone 6 MG in SYRINGE 0 ML IV SCH ×2 (09:43→19:48)
[2022-07-27] MEDS: BARICITINIB 2 MG TAB PO SCH (09:43)
[2022-07-27] MEDS: REMDESIVIR 100 MG in SODIUM CHLORIDE 0.9% 230 ML IV SCH (11:18)
[2022-07-27] MEDS ORDERED: OPTIRAY 320 500ml IV ONE (12:51)
--- NOTE | 2022-07-27 13:08 | CT Scan Report ---
CT angio chest PE protocol CT DOSE: 346.04 mGy.cm HISTORY: 86 years-old Male with PE. Acute shortness of breath. COVID Positive. TECHNIQUE: Multiple CTA images of the chest were obtained after the intravenous administration of 115 ml Optiray. Coronal and sagittal MIPS were obtained from the axial data set and were submitted for review. All measurements were obtained according to NASCET criteria. A dose lowering technique was u tilized adhering to the principles of ALARA. COMPARISON: Chest radiograph of same day FINDINGS: CTA: Moderate to marked cardiomegaly with left subclavian pacer/AICD. No pericardial effusion. Moderate co ronary artery calcifications. There is no thoracic aortic aneurysm or dissection. Unremarkable pulmon edward artery. No filling defects are identified to suggest thromboembolic disease. CT CHEST: No thyroid nodule identified. Numerous calcified mediastinal and hilar lymph nodes. No pneumothorax, or pleural effusion identified. Extensive bilateral multilobar and multi segmental distribution of in termixed groundglass and consolidative opacities, most pronounced within the lung bases and right upp er lobe. There are a few scattered calcified pulmonary granulomata also noted. No suspicious pulmonar y nodules or masses identified. Questioned mild pulmonary emphysema. Cholelithiasis. No acute process of the imaged upper abdomen. Unremarkable soft tissues. Healed chron ic left-sided rib fractures. There is no acute fracture identified. IMPRESSION: 1. Cardiomegaly without pulmonary emboli identified. 2. Extensive bilateral groundglass densities with intermixed airspace opacities compatible with multi focal pneumonia, likely viral etiology. 3. Prior granulomatous disease. 4. No pneumothorax or pleural effusion. 5. Cholelithiasis. ACT 112: Negative or not required by law. The above report was generated using voice recognition software. It may contain grammatical, syntax o r spelling errors. Electronically signed by: Earnest Buckley M.D. 07/27/2022 1:05 PM
[2022-07-27] MEDS: PIPERACILLIN/TAZOBACTAM 3.375 GM in DEXTROSE 5% 100 ML IV SCH ×2 (14:36→22:10)
[2022-07-27 15:11] LABS: Appearance Urine Clear (Clear); Bilirubin Urine Negative (Negative); Blood Urine Negative (Negative); Color Urine Yellow; Glucose Urine UA 1+ (Negative); Ketones Urine Negative (Negative); Leukocyte Esterase Urine Negative (Negative); Nitrite Urine Negative (Negative); Protein Urine Negative (Negative); Specific Gravity Urine > 1.045 (1.000-1.030); Urobilinogen Urine Negative (Negative)
[2022-07-27] MEDS: DOCUSATE SODIUM 100 MG CAP PO SCH (22:05)
[2022-07-28] MEDS: guaiFENesin SUGAR FREE 200 MG/10 ML UDC PO SCH ×4 (01:54→19:49)
[2022-07-28] MEDS: PIPERACILLIN/TAZOBACTAM 3.375 GM in DEXTROSE 5% 100 ML IV SCH ×3 (06:14→23:57)
[2022-07-28 06:35] LABS: Hemoglobin 9.8 g/dl (14.0-18.0); Mean Corpuscular Hemoglobin 40.2 pg (25.0-34.0); Mean Corpuscular Hgb Conc 36.3 g/dL (32.0-36.0); Mean Corpuscular Volume 110.7 fL (80.0-100.0); Mean Platelet Volume 10.5 fL (9.4-12.4); Platelet Count 225 K/uL (130-400); RDW Coefficient of Variation 12.9 % (11.5-14.5); RDW Standard Deviation 52.6 fL (36.4-46.3); Red Blood Count 2.44 M/uL (4.63-6.08); White Blood Count 16.94 K/ul (4.8-10.8)
[2022-07-28 07:04] LABS: Albumin Level 2.9 gm/dl (3.4-5.0); BUN Creatinine Ratio 38.7 (10-20); Bilirubin Direct 0.3 mg/dl (0-0.2); Bilirubin,Total 0.9 mg/dl (0.2-1.0); Calcium 8.8 mg/dl (8.5-10.1); Creatinine Clr Calc Pharmacy 56.2 ml/min; Est GFR (African American) 86.5 ml/min; Est GFR (Non-African American) 74.6 ml/min; Globulin 2.9 gm/dl (2.5-4.0); Magnesium 2.3 mg/dl (1.7-2.4); Phosphorus 3.7 mg/dl (2.5-4.9); Potassium 4.8 mmol/L (3.5-5.1); Total Protein 5.8 gm/dl (6.0-8.3)
[2022-07-28 07:06] LABS: Basophils # (auto) 0.02 K/uL (0-0.2); Basophils % (auto) 0.1 %; Echinocytes 2+; Immature Granulocytes # (auto) 0.23 K/uL (0.00-0.02); Immature Granulocytes % (auto) 1.4 %; Lymphocytes # (auto) 0.38 K/uL (1.2-3.4); Lymphocytes % (auto) 2.2 %; Monocytes # (auto) 0.33 K/uL (0.24-0.82); Monocytes % (auto) 1.9 %; Neutrophils # (auto) 15.98 K/uL (1.4-6.5); Neutrophils % (auto) 94.4 %; Ovalocytes 1+; Target Cells 1+
[2022-07-28] MEDS: ALBUTEROL 0.5% NEB SOLN 2.5 MG/0.5 ML VIAL NEB SCH ×4 (07:10→19:39)
[2022-07-28] MEDS: ATORVASTATIN 20 MG TAB PO SCH (08:23)
[2022-07-28] MEDS: MULTIVITAMIN TAB PO SCH (08:23)
[2022-07-28] MEDS: ASCORBIC ACID 500 MG TAB PO SCH (08:23)
[2022-07-28] MEDS: RANOLAZINE 500 MG ER TAB PO SCH ×2 (08:23→19:51)
[2022-07-28] MEDS: CLOPIDOGREL BISULFATE 75 MG TAB PO SCH (08:23)
[2022-07-28] MEDS: FOLIC ACID 1 MG TAB PO SCH (08:24)
[2022-07-28] MEDS: ASPIRIN 81 MG ECTAB PO SCH (08:24)
[2022-07-28] MEDS: METOPROLOL SUCC 50MG EXT REL TAB PO SCH (08:24)
[2022-07-28] MEDS: allopurinoL 300 MG TAB PO SCH (08:25)
[2022-07-28] MEDS: dexAMETHasone 6 MG in SYRINGE 0 ML IV SCH ×2 (08:25→19:52)
[2022-07-28] MEDS: AMIODARONE 200 MG TAB PO SCH (08:25)
[2022-07-28] MEDS: LEVOTHYROXINE SODIUM 100 MCG TABLET PO SCH (08:26)
[2022-07-28] MEDS: DOCUSATE SODIUM 100 MG CAP PO SCH ×2 (08:26→19:52)
[2022-07-28] MEDS: ENOXAPARIN INJ 40 MG/0.4 ML SYR SQ SCH (08:26)
[2022-07-28] MEDS: PANTOprazole 40 MG TAB PO SCH (08:27)
[2022-07-28] MEDS: BARICITINIB 2 MG TAB PO SCH (08:41)
[2022-07-28] MEDS ORDERED: ADVANCED PROBIOTIC 1250 MG CAPSULE PO SCH (09:00)
[2022-07-28] MEDS ORDERED: POLYETHYLENE (MIRALAX) 17 GM PACK PO SCH (09:00)
[2022-07-28] MEDS: REMDESIVIR 100 MG in SODIUM CHLORIDE 0.9% 230 ML IV SCH (11:42)
--- NOTE | 2022-07-28 17:57 | Hospitalist Progress Note ---
Date of Service July 28, 2022 Assessment & Plan (1) Acute respiratory failure with hypoxia: Plan: Patient admitted with COVID 19 on 07/22 Vaccinated Moderna 11/19/20 12/17/20; Booster 09/2021 Initial oxygen requirement 3-6 liters nasal cannula, on room air at baseline Inflammatory markers were elevated and increased dexamethasone to BID dosing on 07/24 O2 requirement appears to have suddenly worsened 07/25, currently requiring Hi Flow with FiO2 90-100%, desats easily on minimal movement On 07/25, added remdesevir and baricitinib. CRP improving. Encourage pronation is able Major risk factors of age (86 years old) and severe cardiomyopathy (LVEF 25- 30%). Patient changed his code status to DNR/DNI on 07/26 - re-discussed intubation 07/27 with both patient and and both agree he would not want this if he was to get worse. Procalcitonin positive on admission and although trended down his WBC/neutrophilia was also elevated without prior steroids or other explanation of this therefore will add treatment for secondary bacterial pneumonia. At this time he has already had adequate treatment for atypical pneumonia with azithromycin 500mg IV for 5 days. Given he has been in hospital for 5 days will Zosyn 3.375mg IV q8h for more typical coverage started 07/27. CT for PE - negative for pulmonary emboli. (2) Pneumonia due to COVID-19 virus: Plan: As above (3) Cardiomyopathy: Plan: Acute on chronic HFrEF treated and resolved -BNP elevated at 615, no baseline available -Received 1L NSS in the ED prior to admission 07/23 - Lasix 20mg PO 07/24 - Lasix 20mg PO + Lasix 40mg IV 07/25 - Lasix 20mg PO + Lasix 40mg IV 07/26 - no Lasix 07/27 - no Lasix 07/28 - given significant output and euvolemic state will continue to defer Lasix I&Os - -ve 1155ml last 24 hours despite no Lasix Weight 73.6kg from 78kg on admission Continue metoprolol succinate. Unable to tolerate Entresto due to low normal BP. (4) Acute on chronic HFrEF (heart failure with reduced ejection fraction): Plan: As above (5) Anemia: Plan: -Patient's admission Hgb is at 9.0 today, down from 11.9 as of 05/09/21 -Has a history of macrocytic anemia, MCV elevated. 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% on resting echo March, (8) Hyperlipidemia: Plan: Continue atorvastatin (9) Hypothyroidism: Plan: Continue levothyroxine TSH normal in February 2021 - will defer repeating given severe acute illness as above and not suspecting hypo/hyperthyroidism contributing (10) Elevated LFTs: Plan: -No abdominal pain or jaundice -Likely due to current covid infection -Continue to monitor for now and trend LFTS - downtrending therefore will continue remdesivir as above Plan VTE Prophylaxis - now on high flow oxygen and patient on dual antiplatelets will reduce Lovenox dosing to 40mg SQ daily Diet - heart healthy, low sodium Disposition - continued admission on PCU, prognosis remains guarded Admission and Anticipated Discharge Date Admission Date: July 22, 2022 Subjective Reports no change in his shortness of breath. Comfortable on high flow but will desat on the slightest movement. Encouraged to move as much as his shortness of breath allows to avoid muscle wasting. No chest pain. No diarrhea. Non- productive cough. He reports eating a drinking well. No heartburn. Review of Systems Review of Systems: All systems reviewed & are unremarkable except as noted in Subjective Physical Exam Constitutional: WD/WN, vitals as above Eyes: + anicteric sclerae; normal pupil size ENMT: external ear and nose normal, oropharynx normal Neck: trachea midline, no thyromegaly Respiratory: + respiratory distress, + retractions and + uses accessory muscles Auscultation: + crackles (posteriorly fine); breath sounds present, no diminished lung sounds, no rales, no rhonchi and no wheezes Cardiovascular: RRR, no murmur, no edema Extremities: normal capillary refill; no calf tenderness and no pedal edema Gastrointestinal (Abdomen): normal bowel sounds, soft, nontender, no hepatosplenomegaly Musculoskeletal: no cyanosis or clubbing, extremities motor strength 5/5 Skin: no rashes, warm and dry Neurologic: moves all extremities and awake; no focal motor deficits and not confused Psychiatric: A+Ox3, euthymic affect Genitourinary: no CVA tenderness Results & Data Results & Data ([facility]) Vital Signs (Past 12 Hours) Vital Signs Temp Pulse Pulse Pulse Resp BP Pulse Ox 07/28/22 16:38 36.8 C 63 17 109/56 L 90 07/28/22 16:08 62 07/28/22 14:30 62 20 100 07/28/22 14:27 62 20 100 07/28/22 13:00 66 07/28/22 12:05 36.8 C 64 24 104/57 L 90 07/28/22 11:05 65 20 99 07/28/22 11:06 62 20 94 07/28/22 09:39 07/28/22 07:10 68 22 92 07/28/22 07:13 68 22 92 07/28/22 06:52 O2 Del Method O2 Flow Rate FiO2 07/28/22 16:38 High Flow Nasal Cannula 35 90 07/28/22 16:08 07/28/22 14:30 High Flow Nasal Cannula 35 100 07/28/22 14:27 High Flow Nasal Cannula 35 100 07/28/22 13:00 07/28/22 12:05 High Flow Nasal Cannula 35 100 07/28/22 11:05 High Flow Nasal Cannula 40 100 07/28/22 11:06 High Flow Nasal Cannula 40 90 07/28/22 09:39 High Flow Nasal Cannula 40 100 07/28/22 07:10 High Flow Nasal Cannula 40 90 07/28/22 07:13 High Flow Nasal Cannula 40 90 07/28/22 06:52 Other 40 100 PG Care Time/CCT Total # of Minutes Spent Total Time Spent with Patient: Total time spent is greater than 50% in coordination of care (as documented) at patient's floor/unit and/or counseling patient: Coding Level of Care Code 95753 Subseq Hosp Care Lvl 3 Diagnoses Acute respiratory failure with hypoxia J96.01 Pneumonia due to COVID-19 virus U07.1; J12.82 Cardiomyopathy I25.5 Cardiomyopathy type: ischemic Acute on chronic HFrEF (heart failure with reduced ejection fraction) I50.23 Anemia D64.9 Coronary artery disease I25.10 ICD (implantable cardioverter-defibrillator) in place Z95.810 Hyperlipidemia E78.5 Hypothyroidism E03.9 Elevated LFTs R79.89 (1) Cardiomyopathy Cardiomyopathy type: ischemic Qualified Code(s): I25.5 - Ischemic cardiomyopathy
[2022-07-28] MEDS: POLYETHYLENE (MIRALAX) 17 GM PACK PO SCH (19:50)
[2022-07-29] MEDS: guaiFENesin SUGAR FREE 200 MG/10 ML UDC PO SCH ×4 (04:27→20:58)
[2022-07-29 07:24] LABS: Bilirubin Direct 0.3 mg/dl (0-0.2); Bilirubin,Total 0.9 mg/dl (0.2-1.0); Creatinine Clr Calc Pharmacy 47.5 ml/min; Est GFR (African American) 70.6 ml/min; Est GFR (Non-African American) 60.9 ml/min; Total Protein 5.9 gm/dl (6.0-8.3)
[2022-07-29] MEDS: ALBUTEROL 0.5% NEB SOLN 2.5 MG/0.5 ML VIAL NEB SCH ×4 (07:56→19:50)
[2022-07-29] MEDS: dexAMETHasone 6 MG in SYRINGE 0 ML IV SCH ×2 (08:00→20:58)
[2022-07-29] MEDS: ENOXAPARIN INJ 40 MG/0.4 ML SYR SQ SCH (08:01)
[2022-07-29] MEDS: METOPROLOL SUCC 50MG EXT REL TAB PO SCH (08:02)
[2022-07-29] MEDS: CLOPIDOGREL BISULFATE 75 MG TAB PO SCH (08:02)
[2022-07-29] MEDS: AMIODARONE 200 MG TAB PO SCH (08:02)
[2022-07-29] MEDS: DOCUSATE SODIUM 100 MG CAP PO SCH ×2 (08:02→20:58)
[2022-07-29] MEDS: PANTOprazole 40 MG TAB PO SCH (08:03)
[2022-07-29] MEDS: ASCORBIC ACID 500 MG TAB PO SCH (08:03)
[2022-07-29] MEDS: LEVOTHYROXINE SODIUM 100 MCG TABLET PO SCH (08:04)
[2022-07-29] MEDS: MULTIVITAMIN TAB PO SCH (08:04)
[2022-07-29] MEDS: FOLIC ACID 1 MG TAB PO SCH (08:04)
[2022-07-29] MEDS: ASPIRIN 81 MG ECTAB PO SCH (08:05)
[2022-07-29] MEDS: RANOLAZINE 500 MG ER TAB PO SCH ×2 (08:05→20:58)
[2022-07-29] MEDS: POLYETHYLENE (MIRALAX) 17 GM PACK PO SCH ×2 (08:06→20:59)
[2022-07-29] MEDS: allopurinoL 300 MG TAB PO SCH (08:06)
[2022-07-29] MEDS: ATORVASTATIN 20 MG TAB PO SCH (08:06)
[2022-07-29] MEDS: BARICITINIB 2 MG TAB PO SCH (08:16)
[2022-07-29] MEDS: PIPERACILLIN/TAZOBACTAM 3.375 GM in DEXTROSE 5% 100 ML IV SCH ×3 (08:16→23:36)
[2022-07-29] MEDS: REMDESIVIR 100 MG in SODIUM CHLORIDE 0.9% 230 ML IV SCH (11:43)
--- NOTE | 2022-07-29 13:47 | Hospitalist Progress Note ---
Date of Service July 29, 2022 Assessment & Plan (1) Acute respiratory failure with hypoxia: Plan: Patient admitted with COVID 19 on 07/22 Vaccinated Moderna 11/19/20 12/17/20; Booster 09/2021 Initial oxygen requirement 3-6 liters nasal cannula, on room air at baseline Inflammatory markers were elevated and increased dexamethasone to BID dosing on 07/24 O2 requirement appears to have suddenly worsened 07/25, currently requiring Hi Flow with FiO2 90-100%, desats easily on minimal movement. Appears stable now for last 72 hours therefore if decompensates will need stat CXR - ok to use CPAP/BiPAP to clear any mucus. On 07/25, added remdesevir and baricitinib. CRP improving. Encourage pronation as able, would be better to sleep on left side than right given CT imaging as left lung appears better than right Major risk factors of age (86 years old) and severe cardiomyopathy (LVEF 25- 30%). Patient changed his code status to DNR/DNI on 07/26 - re-discussed intubation 07/27 with both patient and and both agree he would not want this if he was to get worse. Azithromycin 500mg IV given 5 days (07/22 - 07/26) Zosyn 3.375mg IV q8h started 07/27 - plan for [address] for PE - negative for pulmonary emboli 07/27 (2) Pneumonia due to COVID-19 virus: Plan: -See acute hypoxic respiratory failure (3) Cardiomyopathy: Plan: Acute on chronic HFrEF treated and resolved -BNP elevated at 615, no baseline available -Received 1L NSS in the ED prior to admission 07/23 - Lasix 20mg PO 07/24 - Lasix 20mg PO + Lasix 40mg IV 07/25 - Lasix 20mg PO + Lasix 40mg IV 07/26 - no Lasix due to negative balance 07/27 - no Lasix due to negative balance 07/28 - No Lasix due to negative balance 07/29 - will resume his usual 20mg PO lasix today I&Os - -ve 456ml last 24 hours despite no Lasix Weight 73.6kg from 78kg on admission - no weight measured for today Continue metoprolol succinate. Unable to tolerate Entresto due to low normal BP. (4) Acute on chronic HFrEF (heart failure with reduced ejection fraction): Plan: Currently appears euvolemic As above (5) Anemia: Plan: -Patient's admission Hgb is at 9.0 today, down from 11.9 as of 05/09/21 -Has a history of macrocytic anemia, MCV elevated. 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% on resting echo March, (8) Hyperlipidemia: Plan: Continue atorvastatin (9) Hypothyroidism: Plan: Continue levothyroxine TSH normal in February 2021 - will defer repeating given severe acute illness as above and not suspecting hypo/hyperthyroidism contributing (10) Elevated LFTs: Plan: -No abdominal pain or jaundice -Likely due to current covid infection -Continue to monitor for now and trend LFTS - downtrending therefore will continue remdesivir as above Plan VTE Prophylaxis - Lovenox 40mg SQ daily Diet - heart healthy, low sodium Disposition - continued admission on PCU, prognosis remains guarded Admission and Anticipated Discharge Date Admission Date: July 22, 2022 Subjective No significant change in his symptoms. Non-productive cough. Watching the football game when seen and quite content. Encouraged prone sleeping if able and discussed with his nurse. Updated his at bedside. Review of Systems Review of Systems: All systems reviewed & are unremarkable except as noted in Subjective Physical Exam Constitutional: WD/WN, vitals as above Eyes: + anicteric sclerae; normal pupil size ENMT: external ear and nose normal, oropharynx normal Respiratory: + respiratory distress, + retractions and + uses accessory muscles Auscultation: + crackles (bibasal); breath sounds present, no diminished lung sounds, no rales, no rhonchi and no wheezes Cardiovascular: RRR, no murmur, no edema Extremities: normal capillary refill; no calf tenderness and no pedal edema Gastrointestinal (Abdomen): normal bowel sounds, soft, nontender, no hepatosplenomegaly Musculoskeletal: no cyanosis or clubbing, extremities motor strength 5/5 Skin: no rashes, warm and dry Neurologic: moves all extremities and awake; no focal motor deficits and not confused Psychiatric: A+Ox3, euthymic affect Genitourinary: no CVA tenderness Results & Data Results & Data ([facility]) Vital Signs (Past 12 Hours) Vital Signs Temp Pulse Resp BP Pulse Ox O2 Del Method O2 Flow Rate 07/29/22 11:46 60 20 109/50 L 89 L High Flow Nasal Cannula 40 07/29/22 11:20 62 22 99 High Flow Nasal Cannula 40 07/29/22 10:16 High Flow Nasal Cannula 40 07/29/22 07:55 79 24 89 L High Flow Nasal Cannula 40 07/29/22 07:55 36.5 C 69 24 143/69 H 83 L High Flow Nasal Cannula 40 07/29/22 04:00 36.3 C L 64 22 106/61 88 L High Flow Nasal Cannula 30 07/29/22 03:00 60 18 92 High Flow Nasal Cannula 30 FiO2 07/29/22 11:46 100 07/29/22 11:20 100 07/29/22 10:16 100 07/29/22 07:55 100 07/29/22 07:55 100 07/29/22 04:00 85 07/29/22 03:00 85 PG Care Time/CCT Total # of Minutes Spent Total Time Spent with Patient: Total time spent is greater than 50% in coordination of care (as documented) at patient's floor/unit and/or counseling patient: Coding Level of Care Code 20811 Subseq Hosp Care Lvl 3 Diagnoses Acute respiratory failure with hypoxia J96.01 Pneumonia due to COVID-19 virus U07.1; J12.82 Cardiomyopathy I25.5 Cardiomyopathy type: ischemic Acute on chronic HFrEF (heart failure with reduced ejection fraction) I50.23 Anemia D64.9 Coronary artery disease I25.10 ICD (implantable cardioverter-defibrillator) in place Z95.810 Hyperlipidemia E78.5 Hypothyroidism E03.9 Elevated LFTs R79.89 (1) Cardiomyopathy Cardiomyopathy type: ischemic Qualified Code(s): I25.5 - Ischemic cardiomyopathy
[2022-07-29] MEDS ORDERED: FUROSEMIDE INJ 20 MG/2 ML VIAL IV ONE (14:38)
[2022-07-30] MEDS: guaiFENesin SUGAR FREE 200 MG/10 ML UDC PO SCH ×4 (03:16→19:53)
[2022-07-30] MEDS ORDERED: ALBUMIN 25% 100 mL 25 GM/100 ML VIAL IV ONE (03:50)
--- NOTE | 2022-07-30 04:17 | Communication Note ---
Date of Service: July 30, 2022 BP 91/472. MAP 57. low ef 25-30 noted. ordering dose of albumin. subsequent bp improved to 102/60
[2022-07-30] MEDS: PIPERACILLIN/TAZOBACTAM 3.375 GM in DEXTROSE 5% 100 ML IV SCH ×3 (06:09→22:34)
[2022-07-30 07:11] LABS: Hematocrit (blood only) 25.2 % (40.1-51.0); Hemoglobin 9.2 g/dl (14.0-18.0); Mean Corpuscular Hgb Conc 36.5 g/dL (32.0-36.0); Mean Corpuscular Volume 109.6 fL (80.0-100.0); Mean Platelet Volume 10.6 fL (9.4-12.4); Platelet Count 159 K/uL (130-400); RDW Standard Deviation 52.1 fL (36.4-46.3); White Blood Count 17.47 K/ul (4.8-10.8)
[2022-07-30] MEDS: ALBUTEROL 0.5% NEB SOLN 2.5 MG/0.5 ML VIAL NEB SCH ×4 (07:21→19:17)
[2022-07-30 07:36] LABS: Albumin Globulin Ratio 1.3 (0.9-2); Albumin Level 3.4 gm/dl (3.4-5.0); BUN Creatinine Ratio 41.1 (10-20); Bilirubin Direct 0.4 mg/dl (0-0.2); Bilirubin,Total 1.1 mg/dl (0.2-1.0); Calcium 8.9 mg/dl (8.5-10.1); Creatinine Clr Calc Pharmacy 46.7 ml/min; Est GFR (African American) 69.1 ml/min; Est GFR (Non-African American) 59.6 ml/min; Globulin 2.7 gm/dl (2.5-4.0); Potassium 4.8 mmol/L (3.5-5.1); Total Protein 6.1 gm/dl (6.0-8.3)
[2022-07-30 07:40] LABS: Basophils # (auto) 0.01 K/uL (0-0.2); Basophils % (auto) 0.1 %; Immature Granulocytes # (auto) 0.24 K/uL (0.00-0.02); Immature Granulocytes % (auto) 1.4 %; Lymphocytes # (auto) 0.38 K/uL (1.2-3.4); Lymphocytes % (auto) 2.2 %; Monocytes # (auto) 0.35 K/uL (0.24-0.82); Neutrophils # (auto) 16.49 K/uL (1.4-6.5); Neutrophils % (auto) 94.3 %
[2022-07-30] MEDS: dexAMETHasone 6 MG in SYRINGE 0 ML IV SCH ×2 (07:43→19:54)
[2022-07-30] MEDS: BARICITINIB 2 MG TAB PO SCH (07:43)
[2022-07-30] MEDS: allopurinoL 300 MG TAB PO SCH (07:44)
[2022-07-30] MEDS: AMIODARONE 200 MG TAB PO SCH (07:45)
[2022-07-30] MEDS: ASCORBIC ACID 500 MG TAB PO SCH (07:46)
[2022-07-30] MEDS: ASPIRIN 81 MG ECTAB PO SCH (07:46)
[2022-07-30] MEDS: DOCUSATE SODIUM 100 MG CAP PO SCH ×2 (07:47→19:53)
[2022-07-30] MEDS: ENOXAPARIN INJ 40 MG/0.4 ML SYR SQ SCH (07:47)
[2022-07-30] MEDS: CLOPIDOGREL BISULFATE 75 MG TAB PO SCH (07:47)
[2022-07-30] MEDS: ATORVASTATIN 20 MG TAB PO SCH (07:47)
[2022-07-30] MEDS: FOLIC ACID 1 MG TAB PO SCH (07:48)
[2022-07-30] MEDS: MULTIVITAMIN TAB PO SCH (07:50)
[2022-07-30] MEDS: PANTOprazole 40 MG TAB PO SCH (07:50)
[2022-07-30] MEDS: LEVOTHYROXINE SODIUM 100 MCG TABLET PO SCH (07:50)
[2022-07-30] MEDS: POLYETHYLENE (MIRALAX) 17 GM PACK PO SCH ×2 (07:50→19:54)
[2022-07-30] MEDS: RANOLAZINE 500 MG ER TAB PO SCH ×2 (07:51→19:53)
[2022-07-30] MEDS: FUROSEMIDE 20 MG TAB PO SCH (09:01)
--- NOTE | 2022-07-30 10:11 | Hospitalist Progress Note ---
Date of Service July 30, 2022 Assessment & Plan (1) Acute respiratory failure with hypoxia: Plan: Patient admitted with COVID-19 on 07/22 Vaccinated Moderna 11/19/20 12/17/20; Booster 09/2021 Initial oxygen requirement 3-6 liters nasal cannula, on room air at baseline Inflammatory markers were elevated and increased dexamethasone to BID dosing on 07/24 O2 requirement appears to have suddenly worsened 07/25, currently requiring Hi Flow with FiO2 90-100%, desats easily on minimal movement. Appears stable now for last 72 hours therefore if decompensates will need stat CXR On 07/25, added remdesevir and baricitinib. CRP improving. Encourage pronation as able, would be better to sleep on left side than right given CT imaging as left lung appears better than right Major risk factors of age (86 years old) and severe cardiomyopathy (LVEF 25- 30%). Patient changed his code status to DNR/DNI on 07/26 - re-discussed intubation 07/27 with both patient and and both agree he would not want this if he was to get worse. Azithromycin 500mg IV given 5 days (07/22 - 07/26) Zosyn 3.375mg IV q8h started 07/27 - plan for [address] for PE - negative for pulmonary emboli 07/27 (2) Pneumonia due to COVID-19 virus: Plan: -See acute hypoxic respiratory failure (3) Cardiomyopathy: Plan: Acute on chronic HFrEF treated and resolved -BNP elevated at 615, no baseline available -Received 1L NSS in the ED prior to admission 07/23 - Lasix 20mg PO 07/24 - Lasix 20mg PO + Lasix 40mg IV 07/25 - Lasix 20mg PO + Lasix 40mg IV 07/26 - no Lasix due to negative balance 07/27 - no Lasix due to negative balance 07/28 - No Lasix due to negative balance 07/29 - Lasix 20mg IV caused excessive diuresis and mild hypotension -ve 2355ml 07/30 - Will continue Lasix 20mg PO daily to aim for slight negative balance daily Weight 73.6kg from 78kg on admission - continue daily weights Continue metoprolol succinate. Unable to tolerate Entresto due to low normal BP. (4) Acute on chronic HFrEF (heart failure with reduced ejection fraction): Plan: Currently appears euvolemic As above (5) Anemia: Plan: -Patient's admission Hgb is at 9-10, down from 11.9 as of 05/09/21 -Has a history of macrocytic anemia, MCV elevated. 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% on resting echo March, (8) Hyperlipidemia: Plan: Continue atorvastatin (9) Hypothyroidism: Plan: Continue levothyroxine TSH normal in February 2021 - will defer repeating given severe acute illness as above and not suspecting hypo/hyperthyroidism contributing (10) Elevated LFTs: Plan: -No abdominal pain or jaundice -Likely due to current covid infection -Continue to monitor for now and trend LFTS - downtrending therefore will con tinue remdesivir as above Plan VTE Prophylaxis - Lovenox 40mg SQ daily Diet - heart healthy, low sodium Disposition - continued admission on PCU, prognosis remains guarded Admission and Anticipated Discharge Date Admission Date: July 22, 2022 Subjective Na down to 132 after Lasix 20mg IV given yesterday with significant urine output associated with this. Cr also mildly increased to 1.12. BUN not accurate due to steroid use. No significant change from patient symptoms. Desaturates to mid 80s while talking and cannot complete full sentences. Review of Systems Review of Systems: All systems reviewed & are unremarkable except as noted in Subjective Physical Exam Constitutional: WD/WN, vitals as above Eyes: + anicteric sclerae; normal pupil size Respiratory: + respiratory distress, + retractions and + uses accessory muscles; + abnormal respiratory effort and + not able to speak in complete sentence Auscultation: + crackles (bibasal); breath sounds present, no diminished lung sounds, no rales, no rhonchi and no wheezes Cardiovascular: RRR, no murmur, no edema Extremities: normal capillary refill; no calf tenderness and no pedal edema Gastrointestinal (Abdomen): normal bowel sounds, soft, nontender, no hepatosplenomegaly Musculoskeletal: no cyanosis or clubbing, extremities motor strength 5/5 Skin: no rashes, warm and dry Neurologic: moves all extremities and awake; no focal motor deficits and not confused Psychiatric: A+Ox3, euthymic affect Results & Data Results & Data ([facility]) Vital Signs (Past 12 Hours) Vital Signs Temp Pulse Resp BP Pulse Ox O2 Del Method O2 Flow Rate 07/30/22 07:53 36.6 C 65 20 95/59 L 90 High Flow Nasal Cannula 40 07/30/22 07:22 62 20 98 High Flow Nasal Cannula 40 07/30/22 06:08 102/60 07/30/22 04:58 68 18 91 High Flow Nasal Cannula 40 07/30/22 03:08 36.4 C L 60 20 91/42 L 98 07/29/22 22:43 36.4 C L 65 20 91/47 L 96 High Flow Nasal Cannula 07/29/22 22:41 58 L 18 91 High Flow Nasal Cannula 40 FiO2 07/30/22 07:53 95 07/30/22 07:22 100 07/30/22 06:08 07/30/22 04:58 100 07/30/22 03:08 07/29/22 22:43 07/29/22 22:41 100 PG Care Time/CCT Total # of Minutes Spent Total Time Spent with Patient: Total time spent is greater than 50% in coordination of care (as documented) at patient's floor/unit and/or counseling patient: Coding Level of Care Code 45978 Subseq Hosp Care Lvl 3 Diagnoses Acute respiratory failure with hypoxia J96.01 Pneumonia due to COVID-19 virus U07.1; J12.82 Cardiomyopathy I25.5 Cardiomyopathy type: ischemic Acute on chronic HFrEF (heart failure with reduced ejection fraction) I50.23 Anemia D64.9 Coronary artery disease I25.10 ICD (implantable cardioverter-defibrillator) in place Z95.810 Hyperlipidemia E78.5 Hypothyroidism E03.9 Elevated LFTs R79.89 (1) Cardiomyopathy Cardiomyopathy type: ischemic Qualified Code(s): I25.5 - Ischemic cardiomyopathy
--- NOTE | 2022-07-30 16:16 | XRay Report ---
XR chest 1V portable CLINICAL HISTORY: ARDS, COVID TECHNIQUE: Single frontal radiograph of the chest was obtained. Comparison: Comparison is made to chest radiograph 07/27/2022 FINDINGS: Pacemaker defibrillator is seen. Cardiomegaly is noted. Multifocal airspace opacities are seen. No ev idence of pleural effusion or pneumothorax. IMPRESSION: Multifocal airspace opacities compatible with ARDS and/or pneumonia. These are stable to minimally de creased from prior exam. Stable cardiomegaly. ACT 112: Negative or not required by law. Electronically signed by: Sumit Goldstein M.D. 07/30/2022 4:14 PM
--- NOTE | 2022-07-30 21:37 | Communication Note ---
Date of Service: July 30, 2022 ~10pm trialing qhs cpap (fio2 50%) because of persistent high high-flow requirements x several days. ordering abg abg 7.51/34/106/27
[2022-07-30 22:42] LABS: iSTAT Allen Test Pass; iSTAT Art Bld Gas pCO2 Correct 34 mmHg (35-46); iSTAT Art Bld Gas pH Corrected 7.509 (7.35-7.45); iSTAT Arterial Blood Gas HCO3 27 meg/L (19-24); iSTAT Arterial Blood Gas pCO2 34 mmHg (35-46); iSTAT Arterial Blood Gas pH 7.51 (7.35-7.45); iSTAT Arterial Blood Gas pO2 108 mmHg (80-95); iSTAT Arterial Blood Gas pO2 C 106; iSTAT Carbon Dioxide 28 mmol/L (24-31); iSTAT FiO2 80 %; iSTAT Hematocrit 28 % (42-52); iSTAT Hemoglobin 9.5 g/dl (14.0-18.0); iSTAT Potassium 4.9 mmol/L (3.3-5.0); iSTAT Site L Radial; iSTAT Sodium 129 mmol/L (135-144)
[2022-07-31] MEDS: guaiFENesin SUGAR FREE 200 MG/10 ML UDC PO SCH ×4 (02:18→19:55)
[2022-07-31] MEDS: PIPERACILLIN/TAZOBACTAM 3.375 GM in DEXTROSE 5% 100 ML IV SCH ×3 (06:12→22:46)
[2022-07-31 06:41] LABS: Hematocrit (blood only) 28.2 % (40.1-51.0); Hemoglobin 10.4 g/dl (14.0-18.0); Mean Corpuscular Hgb Conc 36.9 g/dL (32.0-36.0); Mean Corpuscular Volume 108.5 fL (80.0-100.0); Mean Platelet Volume 10.8 fL (9.4-12.4); Platelet Count 172 K/uL (130-400); RDW Coefficient of Variation 12.7 % (11.5-14.5); RDW Standard Deviation 50.9 fL (36.4-46.3); White Blood Count 24.17 K/ul (4.8-10.8)
[2022-07-31] MEDS: ALBUTEROL 0.5% NEB SOLN 2.5 MG/0.5 ML VIAL NEB SCH ×4 (07:00→19:19)
[2022-07-31 07:14] LABS: Albumin Level 3.3 gm/dl (3.4-5.0); BUN Creatinine Ratio 37.7 (10-20); Basophilic Stippling 1+; Basophils # (auto) 0.02 K/uL (0-0.2); Basophils % (auto) 0.1 %; Bilirubin Direct 0.4 mg/dl (0-0.2); Bilirubin,Total 1.2 mg/dl (0.2-1.0); C Reactive Protein 4.29 mg/dl (0-0.5); Creatinine Clr Calc Pharmacy 45.8 ml/min; Echinocytes 1+; Est GFR (African American) 67.6 ml/min; Est GFR (Non-African American) 58.3 ml/min; Immature Granulocytes # (auto) 0.25 K/uL (0.00-0.02); Lymphocytes # (auto) 0.39 K/uL (1.2-3.4); Lymphocytes % (auto) 1.6 %; Monocytes # (auto) 0.51 K/uL (0.24-0.82); Monocytes % (auto) 2.1 %; Neutrophils % (auto) 95.2 %; Ovalocytes 1+; Polychromasia 1+; Potassium 5.2 mmol/L (3.5-5.1); Total Protein 6.3 gm/dl (6.0-8.3)
[2022-07-31] MEDS ORDERED: SODIUM ZIRCONIUM CYCLOSILICATE 10 GM PACKET PO ONE (07:36)
[2022-07-31] MEDS: ENOXAPARIN INJ 40 MG/0.4 ML SYR SQ SCH (07:42)
[2022-07-31] MEDS: dexAMETHasone 6 MG in SYRINGE 0 ML IV SCH ×2 (07:42→19:55)
[2022-07-31] MEDS: AMIODARONE 200 MG TAB PO SCH (07:43)
[2022-07-31] MEDS: allopurinoL 300 MG TAB PO SCH (07:43)
[2022-07-31] MEDS: ASCORBIC ACID 500 MG TAB PO SCH (07:43)
[2022-07-31] MEDS: ATORVASTATIN 20 MG TAB PO SCH (07:44)
[2022-07-31] MEDS: ASPIRIN 81 MG ECTAB PO SCH (07:44)
[2022-07-31] MEDS: CLOPIDOGREL BISULFATE 75 MG TAB PO SCH (07:45)
[2022-07-31] MEDS: DOCUSATE SODIUM 100 MG CAP PO SCH ×2 (07:45→19:55)
[2022-07-31] MEDS: FOLIC ACID 1 MG TAB PO SCH (07:45)
[2022-07-31] MEDS: MULTIVITAMIN TAB PO SCH (07:46)
[2022-07-31] MEDS: METOPROLOL SUCC 50MG EXT REL TAB PO SCH ×3 (07:46→10:50)
[2022-07-31] MEDS: LEVOTHYROXINE SODIUM 100 MCG TABLET PO SCH (07:46)
[2022-07-31] MEDS: POLYETHYLENE (MIRALAX) 17 GM PACK PO SCH ×2 (07:47→19:55)
[2022-07-31] MEDS: PANTOprazole 40 MG TAB PO SCH (07:47)
[2022-07-31] MEDS: RANOLAZINE 500 MG ER TAB PO SCH ×2 (07:47→19:55)
[2022-07-31] MEDS: BARICITINIB 2 MG TAB PO SCH (07:59)
--- NOTE | 2022-07-31 13:30 | Hospitalist Progress Note ---
Date of Service July 31, 2022 Assessment & Plan (1) Acute respiratory failure with hypoxia: Plan: Patient admitted with COVID-19 on 07/22 Vaccinated Moderna 11/19/20 12/17/20; Booster 09/2021 Initial oxygen requirement 3-6 liters nasal cannula, on room air at baseline Inflammatory markers were elevated and increased dexamethasone to BID dosing on 07/24, can decrease back to daily for 10 days tomorrow. O2 requirement appears to have suddenly worsened 07/25, currently requiring Hi Flow with FiO2 90-100%, desats easily on minimal movement. Appears stable now for last 72 hours therefore if decompensates will need stat CXR On 07/25, added remdesevir (now completed) and baricitinib. CRP improving. Significant improvement with CPAP overnight, will continue HS, wean high flow during the day as able. Major risk factors of age (86 years old) and severe cardiomyopathy (LVEF 25- 30%). Patient changed his code status to DNR/DNI on 07/26 - re-discussed intubation 07/27 with both patient and and both agree he would not want this if he was to get worse. Azithromycin 500mg IV given 5 days (07/22 - 07/26) Zosyn 3.375mg IV q8h started 07/27 due to neutrophilia on admission and severity of illness - plan for 5-[address] for PE - negative for pulmonary emboli 07/27 (2) Pneumonia due to COVID-19 virus: Plan: -See acute hypoxic respiratory failure (3) Electrolyte abnormality: Plan: Suspect hyponatremia due to Lasix use. Now on hold as below. Should improve with holding Lasix. Hyperkalemia likely due to reduced renal function with intravascular depletion from Lasix. Lokelma 10mg PO now, repeat level in AM. (4) Cardiomyopathy: Plan: Acute on chronic HFrEF treated and resolved -BNP elevated at 615, no baseline available -Received 1L NSS in the ED prior to admission 07/23 - Lasix 20mg PO 07/24 - Lasix 20mg PO + Lasix 40mg IV 07/25 - Lasix 20mg PO + Lasix 40mg IV 07/26 - no Lasix due to negative balance 07/27 - no Lasix due to negative balance 07/28 - No Lasix due to negative balance 07/29 - Lasix 20mg IV caused excessive diuresis and mild hypotension -ve 2355ml 07/30 - Lasix 20g PO also caused excessive diuresis and contraction alkalosis last night on ABG 07/31 - recommend holding lasix for at least the next few days depending on I&Os Weight 73.6kg from 78kg on admission - continue daily weights Continue metoprolol succinate. Unable to tolerate Entresto due to low normal BP. (5) Acute on chronic HFrEF (heart failure with reduced ejection fraction): Plan: Currently appears euvolemic As above (6) Anemia: Plan: -Patient's admission Hgb is at 9-10, down from 11.9 as of 05/09/21 -Has a history of macrocytic anemia, MCV elevated. 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% on resting echo March, (9) Hyperlipidemia: Plan: Continue atorvastatin (10) Hypothyroidism: Plan: Continue levothyroxine TSH normal in February 2021 - will defer repeating given severe acute illness as above and not suspecting hypo/hyperthyroidism contributing (11) Elevated LFTs: Plan: -No abdominal pain or jaundice -Likely due to current covid infection - downtrending Plan VTE Prophylaxis - Lovenox 40mg SQ daily Diet - heart healthy, low sodium Disposition - continued admission on PCU Admission and Anticipated Discharge Date Admission Date: July 22, 2022 Subjective Patient reports no significant change in symptoms. CPAP started overnight which appears to have improved his oxygenation today and down to FiO2 of 80%. Able to get to the edge of the bed today and planning to sit out in the chair later as long as desaturations on movement do not dip below 80%. Updated his over the phone. Discussed care with Dr. Hoff. Review of Systems Review of Systems: All systems reviewed & are unremarkable except as noted in Subjective Physical Exam Constitutional: WD/WN, vitals as above Eyes: + anicteric sclerae; normal pupil size Respiratory: + respiratory distress, + retractions and + uses accessory muscles; + abnormal respiratory effort and + not able to speak in complete sentence Auscultation: + diminished lung sounds (Generalized poor inspiratory effort); breath sounds present, no crackles, no rales, no rhonchi and no wheezes Cardiovascular: RRR, no murmur, no edema Extremities: normal capillary refill; no calf tenderness and no pedal edema Gastrointestinal (Abdomen): normal bowel sounds, soft, nontender, no hepatosplenomegaly Musculoskeletal: no cyanosis or clubbing, extremities motor strength 5/5 Skin: no rashes, warm and dry Neurologic: moves all extremities and awake; no focal motor deficits and not confused Psychiatric: A+Ox3, euthymic affect Results & Data Results & Data ([facility]) Vital Signs (Past 12 Hours) Vital Signs Temp Pulse Pulse Pulse Resp BP Pulse Ox 07/31/22 11:50 36.4 C L 66 20 124/68 91 07/31/22 10:54 69 18 94 07/31/22 08:00 07/31/22 07:51 36.8 C 71 18 98/62 L 88 L 07/31/22 07:00 63 20 81 L 07/31/22 06:33 65 16 91 07/31/22 03:25 61 17 95 07/31/22 02:26 36.5 C 70 16 129/74 91 O2 Del Method O2 Flow Rate FiO2 07/31/22 11:50 High Flow Nasal Cannula 30 80 07/31/22 10:54 High Flow Nasal Cannula 35 80 07/31/22 08:00 High Flow Nasal Cannula 35 80 07/31/22 07:51 High Flow Nasal Cannula 35 80 07/31/22 07:00 High Flow Nasal Cannula 35 55 07/31/22 06:33 High Flow Nasal Cannula 35 55 07/31/22 03:25 50 07/31/22 02:26 CPAP 10 50 PG Care Time/CCT Total # of Minutes Spent Total Time Spent with Patient: Total time spent is greater than 50% in coordination of care (as documented) at patient's floor/unit and/or counseling patient: Coding Level of Care Code 80936 Subseq Hosp Care Lvl 3 Diagnoses Acute respiratory failure with hypoxia J96.01 Pneumonia due to COVID-19 virus U07.1; J12.82 Electrolyte abnormality E87.8 Cardiomyopathy I25.5 Cardiomyopathy type: ischemic Acute on chronic HFrEF (heart failure with reduced ejection fraction) I50.23 Anemia D64.9 Coronary artery disease I25.10 ICD (implantable cardioverter-defibrillator) in place Z95.810 Hyperlipidemia E78.5 Hypothyroidism E03.9 Elevated LFTs R79.89 (1) Cardiomyopathy Cardiomyopathy type: ischemic Qualified Code(s): I25.5 - Ischemic cardiomyopathy
--- NOTE | 2022-07-31 15:06 | XCELERA ---
[id number]
--- NOTE | 2022-07-31 16:52 | Pulmonary Consultation ---
Date of Consultation July 31, 2022 Assessment & Plan (1) Acute on chronic HFrEF (heart failure with reduced ejection fraction): Recommend maximal diuresis in the setting of acute hypoxemic respiratory failure and severe ischemic cardiomyopathy. Consider consulting with cardiology with respect to an Impella device or dobutamine to assist with forward flow. (2) Hypoxia: Slowly wean as able. Continue proning and the use of CPAP as able to help recurrent alveoli. (3) Pneumonia due to COVID-19 virus: Recommend weaning off steroids at this time as I think they have a limited benefit at this stage of his illness. He is significantly immunocompromised giv en the baricitinib and high-dose steroids. At this time, I have no further pulmonary interventions or recommendations. Thank you for the consultation. Please call with questions. History of Present Illness Reason for Consultation: Acute hypoxemic respiratory failure Attending Physician: Ulysses Andrews MD History of Present Illness 86-year-old male who was admitted to the hospital due to hypoxemic respiratory failure was found to have COVID-19. Pulmonary consult is requested to evaluate patient's ongoing hypoxemic respiratory failure. He was treated with remdesivir, baricitinib and high-dose dexamethasone. He still continues to require high flow oxygen and an FiO2 of 80%. He had an echo today which revealed an LVEF of 25 to 30%. He has been receiving ongoing prn diuresis with minimal improvement of symptoms. His proBNP was mildly elevated. Procalcitonin was unremarkable. Chest x-ray with multifocal infiltrates. CT chest with bilateral groundglass densities. Patient appears comfortable when laying in bed. He easily desaturations when sitting up. His daughter is at bedside. She notes that he was supposed to undergo left heart catheterization at [facility]. He denies any prior pulmonary issues or the need for oxygen use. He notes that he was previously independent. He lives in [place] and is able to drive. Allergies Allergy/AdvReac Type Severity Reaction Status Date / Time No Known Drug Allergies Allergy Unknown Verified 06/12/22 13:14 Home Medications Medication Instructions Recorded Confirmed Type aspirin 81 mg tablet 81 mg PO DAILY 06/02/19 07/22/22 History nitroglycerin 0.4 mg sublingual 0.4 mg sublingual Q5M PRN Chest 06/02/19 07/22/22 History tablet Pain #25 tabs ascorbic acid (vitamin C) 250 mg 250 mg PO DAILY 07/08/19 07/22/22 History tablet (Vitamin C) multivitamin 1 cap PO DAILY 07/08/19 07/22/22 History allopurinol 300 mg tablet 300 mg PO DAILY #90 tabs 07/05/20 07/22/22 Rx levothyroxine 100 mcg capsule 100 mcg PO DAILY 07/19/20 07/22/22 History omeprazole 20 mg capsule,delayed 20 mg PO DAILY #30 caps 08/02/20 07/22/22 Rx release clopidogrel 75 mg tablet (Plavix) 75 mg PO DAILY #90 tabs 06/13/21 07/22/22 Rx ranolazine 500 mg tablet,extended 500 mg PO BID #180 tabs 01/09/22 07/22/22 Rx release,12 hr atorvastatin 20 mg tablet 20 mg PO DAILY 05/22/22 07/22/22 History metoprolol succinate 100 mg 100 mg PO DAILY #90 tabs 05/22/22 07/22/22 Rx tablet,extended release 24 hr amiodarone 200 mg tablet 200 mg PO DAILY 06/12/22 07/22/22 History furosemide 40 mg tablet (Lasix) 20 mg PO DAILY PRN weight gain #30 06/12/22 07/22/22 Rx tabs Patient History Medical History Congenital heart disease Hyperlipidemia Hypothyroidism ICD (implantable cardioverter-defibrillator) in place Myocardial Infarction SBO (small bowel obstruction) Ventricular tachycardia Surgical History [place] heart artery [place] [facility] [place] of implantable cardioverter-defibrillator (ICD) placement Family History Brother Hx of CABG Sister Myocardial infarction Social History Smoking Status: Never smoker Second Hand Exposure: No; Tobacco Cessation Education Requested by Patient: No Hx Alcohol Use: No Hx Substance Use: No Preferred Language: Kyrgyz Communication Ability: Effective Gender Studies Professor Required: No Beliefs That Will Affect Care: Mormonism and Spiritual marital status: Current Living Situation: Spouse Current Living Situation Comment: home 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 Patient is in no apparent distress. Patient is well-developed. Eyes: Pupils are equal round and reactive to light. Conjunctivae are normal. Anicteric sclera. Ears nose, mouth and throat: High flow nasal cannula tubing in place. Neck: Trachea is midline. Visual inspection is normal. Respiratory: Crackles bilaterally. No wheezes. Cardiovascular: Regular rate and rhythm. No murmurs. No edema. Gastrointestinal: Normal bowel sounds, soft, nontender and nondistended. No hepatosplenomegaly noted. Musculoskeletal: No cyanosis. Patient is able to move all extremities. Skin: No rashes, warm dry and intact. Neurologic: No obvious focal neurological deficits seen. Psychiatric: Alert and oriented x3 with a euthymic affect. Results & Data Results & Data ([facility]) Vital Signs (Past 12 Hours) Vital Signs Temp Pulse Pulse Resp BP Pulse Ox O2 Del Method 07/31/22 15:39 36.4 C L 68 18 99/63 L 89 L High Flow Nasal Cannula 07/31/22 14:49 61 19 89 L High Flow Nasal Cannula 07/31/22 14:49 61 19 90 High Flow Nasal Cannula 07/31/22 11:50 36.4 C L 66 20 124/68 91 High Flow Nasal Cannula 07/31/22 10:54 69 18 94 High Flow Nasal Cannula 07/31/22 08:00 High Flow Nasal Cannula 07/31/22 07:51 36.8 C 71 18 98/62 L 88 L High Flow Nasal Cannula 07/31/22 07:00 63 20 81 L High Flow Nasal Cannula 07/31/22 06:33 65 16 91 High Flow Nasal Cannula O2 Flow Rate FiO2 07/31/22 15:39 30 80 07/31/22 14:49 30 80 07/31/22 14:49 30 07/31/22 11:50 30 80 07/31/22 10:54 35 80 07/31/22 08:00 35 80 07/31/22 07:51 35 80 10/17/22 07:00 35 55 07/31/22 06:33 35 55 PG Care Time/CCT Total # of Minutes Spent Total Time Spent with Patient: Total time spent is greater than 50% in coordination of care (as documented) at patient's floor/unit and/or counseling patient: Coding Level of Care Code 67821 Initial Inpt Care Lvl 3 Diagnoses Acute on chronic HFrEF (heart failure with reduced ejection fraction) I50.23 Hypoxia R09.02 Pneumonia due to COVID-19 virus U07.1; J12.82
[2022-08-01] MEDS: PIPERACILLIN/TAZOBACTAM 3.375 GM in DEXTROSE 5% 100 ML IV SCH ×3 (06:27→23:12)
[2022-08-01] MEDS: guaiFENesin SUGAR FREE 200 MG/10 ML UDC PO SCH ×4 (06:28→21:49)
[2022-08-01] MEDS: ALBUTEROL 0.5% NEB SOLN 2.5 MG/0.5 ML VIAL NEB SCH ×4 (07:09→19:29)
[2022-08-01 07:16] LABS: Albumin Level 3.2 gm/dl (3.4-5.0); BUN Creatinine Ratio 38.7 (10-20); Bilirubin Direct 0.3 mg/dl (0-0.2); Bilirubin,Total 1.1 mg/dl (0.2-1.0); Creatinine Clr Calc Pharmacy 47.1 ml/min; Est GFR (African American) 69.8 ml/min; Est GFR (Non-African American) 60.2 ml/min; Potassium 5.2 mmol/L (3.5-5.1); Total Protein 6.2 gm/dl (6.0-8.3)
--- NOTE | 2022-08-01 07:55 | Hospitalist Progress Note ---
Date of Service August 01, 2022 Assessment & Plan (1) Acute respiratory failure with hypoxia: Plan: Patient admitted with COVID-19 on 07/22 Vaccinated Moderna 11/19/20 12/17/20; Booster 09/2021 Initial oxygen requirement 3-6 liters nasal cannula, on room air at baseline Inflammatory markers were elevated and increased dexamethasone to BID dosing on 07/24, Pulmonary medicine feels little benefit at this time. O2 requirement worsened 07/25, currently requiring Hi Flow with FiO2 90-100%, remdesevir completed, and baricitinib completed Significant improvement with CPAP overnight, will continue HS, wean high flow during the day as able. Major risk factors of age (86 years old) and severe cardiomyopathy (LVEF 25- 30%). Cardiac consultation agrees with short-term trial of dobutamine infusion to improve his cardiomyopathy and hopefully improve mobilization of fluid from any heart failure additive effects to his respiratory distress starting dobutamine at 3 mcg per kilo per minute on the evening of 08/01/2022 Patient changed his code status to DNR/DNI on 07/26 - re-discussed intubation 07/27 with both patient and and both agree he would not want this if he was to get worse. Azithromycin 500mg IV given 5 days (07/22 - 07/26) Zosyn 3.375mg IV q8h started 07/27 due to neutrophilia on admission and severity of illness - plan for 5-[address] for PE - negative for pulmonary emboli 07/27 Pulmonary consultation recommends maximal diuresis and cardiopulmonary status (2) Pneumonia due to COVID-19 virus: Plan: -See acute hypoxic respiratory failure (3) Electrolyte abnormality: Plan: Suspect hyponatremia due to Lasix use. Now on hold as below, holding Lasix. Hyperkalemia likely due to reduced renal function with intravascular depletion from Lasix. Lokelma 10mg as administered without improvement of potassium level is 5.2 and high normal is 5.1 there is no acute EKG changes we will continue to follow (4) Cardiomyopathy: Plan: Acute on chronic HFrEF treated and resolved Continue metoprolol changed to tartrate from succinate. Unable to tolerate Entresto due to low normal BP. (5) Acute on chronic HFrEF (heart failure with reduced ejection fraction): Plan: Currently appears euvolemic Has attempt to maximize his heart failure treatment we will try dobutamine infusion (6) Anemia: Plan: -Patient's admission Hgb is at 9-10, down from 11.9 as of 05/09/21 -Has a history of macrocytic anemia, MCV elevated. 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% on resting echo March, (9) Hyperlipidemia: Plan: Continue atorvastatin (10) Hypothyroidism: Plan: Continue levothyroxine TSH normal in February 2021 - will defer repeating given severe acute illness as above and not suspecting hypo/hyperthyroidism contributing (11) Elevated LFTs: Plan: -No abdominal pain or jaundice -Likely due to current covid infection - downtrending Plan VTE Prophylaxis - Lovenox 40mg SQ daily Diet - heart healthy, low sodium Disposition - continued admission on PCU Admission and Anticipated Discharge Date Admission Date: July 22, 2022 Subjective pt remains on significant oxygen augmentation for his COVID. Pulmonary medicine recommends maximizing his cardiac status. Discussion with his long-term supervisor coffee, Dr. Saldaña, agrees that potential trial of a dobutamine infusion over 24 to 48 hours to see if we can improve his cardiopulmonary deficit to improve his oxygenation and mobilize more fluid from a heart failure standpoint otherwise we will continue supportive care with oxygen augmentation for COVID infection Review of Systems Review of Systems: Moderate respiratory distress and fatigue no headache, no visual changes no speech or swallowing issues no chest pain, pressure or palpitations Significant shortness of breath with exertion nonproductive cough no abdominal pain, nausea or vomiting, diarrhea or constipation no dysuria, hematuria or frequency no focal joint pain plus trace peripheral edema no back pain, CVA tenderness or radicular pain no bruising, bleeding or rashes no focal signs of weakness or numbness or altered sensation no complaints of anxiety or depression.. Physical Exam Physical Exam: The patient appeared well nourished and normally developed. He is compensated with high flow oxygen but does become breathless with speaking and eating Vital signs as documented. Head exam is normocephalic atraumatic Neck is without JVD, thyromegaly, or carotid bruits. Lungs are coarse bilaterally with bibasilar rales Cardiac exam, Rhythm is regular.. Systolic ejection murmur is heard Abdominal exam reveals normal bowel sounds, soft non tender, no masses Extremities are trace edematous and both pedal pulses are present Neurologic exam is alert and oriented, no focal loss of strength or sensation Skin is without bruises or rashes Psychologically is without concerns for anxiety or depression.. Results & Data Results & Data ([facility]) Vital Signs (Past 12 Hours) Vital Signs Temp Pulse Pulse Resp BP Pulse Ox O2 Del Method 08/01/22 07:11 69 22 82 L High Flow Nasal Cannula 08/01/22 03:01 64 18 98 High Flow Nasal Cannula 08/01/22 02:50 97.5 F L 65 20 102/64 97 High Flow Nasal Cannula 07/31/22 22:15 63 08/01/22 00:29 63 18 92 High Flow Nasal Cannula 07/31/22 22:41 97.6 F 62 16 119/71 95 BiPAP 07/31/22 21:10 66 18 90 07/31/22 20:10 98.1 F 103/57 L O2 Flow Rate FiO2 08/01/22 07:11 30 8 08/01/22 03:01 30 80 08/01/22 02:50 07/31/22 22:15 08/01/22 00:29 35 85 07/31/22 22:41 07/31/22 21:10 70 07/31/22 20:10 PG Care Time/CCT Total # of Minutes Spent Total Time Spent with Patient: Total time spent is greater than 50% in coordination of care (as documented) at patient's floor/unit and/or counseling patient: Coding Level of Care Code 10603 Subseq Hosp Care Lvl 3 Diagnoses Acute respiratory failure with hypoxia J96.01 Pneumonia due to COVID-19 virus U07.1; J12.82 Electrolyte abnormality E87.8 Cardiomyopathy I25.5 Cardiomyopathy type: ischemic Acute on chronic HFrEF (heart failure with reduced ejection fraction) I50.23 Anemia D64.9 Coronary artery disease I25.10 ICD (implantable cardioverter-defibrillator) in place Z95.810 Hyperlipidemia E78.5 Hypothyroidism E03.9 Elevated LFTs R79.89 (1) Cardiomyopathy Cardiomyopathy type: ischemic Qualified Code(s): I25.5 - Ischemic cardiomyopathy
[2022-08-01] MEDS: dexAMETHasone 6 MG in SYRINGE 0 ML IV SCH (08:23)
[2022-08-01] MEDS: MULTIVITAMIN TAB PO SCH (08:23)
[2022-08-01] MEDS: allopurinoL 300 MG TAB PO SCH (08:24)
[2022-08-01] MEDS: ATORVASTATIN 20 MG TAB PO SCH (08:24)
[2022-08-01] MEDS: CLOPIDOGREL BISULFATE 75 MG TAB PO SCH (08:24)
[2022-08-01] MEDS: ASCORBIC ACID 500 MG TAB PO SCH (08:24)
[2022-08-01] MEDS: PANTOprazole 40 MG TAB PO SCH (08:25)
[2022-08-01] MEDS: AMIODARONE 200 MG TAB PO SCH (08:25)
[2022-08-01] MEDS: FOLIC ACID 1 MG TAB PO SCH (08:25)
[2022-08-01] MEDS: ASPIRIN 81 MG ECTAB PO SCH (08:25)
[2022-08-01] MEDS: DOCUSATE SODIUM 100 MG CAP PO SCH ×2 (08:26→21:49)
[2022-08-01] MEDS: ENOXAPARIN INJ 40 MG/0.4 ML SYR SQ SCH (08:26)
[2022-08-01] MEDS: POLYETHYLENE (MIRALAX) 17 GM PACK PO SCH ×2 (08:27→21:49)
[2022-08-01] MEDS: LEVOTHYROXINE SODIUM 100 MCG TABLET PO SCH (08:28)
[2022-08-01] MEDS: METOPROLOL TARTRATE 25 MG TAB PO SCH ×2 (08:34→21:49)
[2022-08-01] MEDS ORDERED: BARICITINIB 2 MG TAB PO SCH (09:00)
[2022-08-01] MEDS ORDERED: BARICITINIB 2 MG TAB PO ONE (13:30)
[2022-08-01] MEDS: DOBUTamine / D5W 500 MG/250 ML BAG IV SCH (17:55)
--- NOTE | 2022-08-01 21:50 | Communication Note ---
Date of Service: August 01, 2022 Informed by nursing at 930PM of patient having buzzing / tinnnitus in right ear x 2-3 hours. Onset seemed to coincide w/ start of dobutamine drip. At time of my exam, it's still present but milder. States he has had tinnitus intermittently chronically. Otoscopic exam not performed at this time. Considered medications, covid, hypoNa, cerumen, otitis, sensorineural causes. Nurse to notify if worsens later.
[2022-08-02] MEDS: guaiFENesin SUGAR FREE 200 MG/10 ML UDC PO SCH ×4 (06:01→21:32)
[2022-08-02 07:10] LABS: Hematocrit (blood only) 27.8 % (40.1-51.0); Hemoglobin 10.4 g/dl (14.0-18.0); Mean Corpuscular Hemoglobin 39.7 pg (25.0-34.0); Mean Corpuscular Hgb Conc 37.4 g/dL (32.0-36.0); Mean Corpuscular Volume 106.1 fL (80.0-100.0); Mean Platelet Volume 11.5 fL (9.4-12.4); Platelet Count 163 K/uL (130-400); RDW Coefficient of Variation 12.8 % (11.5-14.5); RDW Standard Deviation 49.8 fL (36.4-46.3); Red Blood Count 2.62 M/uL (4.63-6.08); White Blood Count 22.44 K/ul (4.8-10.8)
[2022-08-02] MEDS: ALBUTEROL 0.5% NEB SOLN 2.5 MG/0.5 ML VIAL NEB SCH ×4 (07:14→19:27)
[2022-08-02 07:37] LABS: BUN Creatinine Ratio 38.6 (10-20); C Reactive Protein 3.41 mg/dl (0-0.5); Calcium 8.9 mg/dl (8.5-10.1); Creatinine Clr Calc Pharmacy 40.4 ml/min; Est GFR (African American) 59.3 ml/min; Est GFR (Non-African American) 51.2 ml/min; Potassium 4.8 mmol/L (3.5-5.1)
[2022-08-02 07:59] LABS: Basophils # (auto) 0.02 K/uL (0-0.2); Basophils % (auto) 0.1 %; Echinocytes 1+; Immature Granulocytes # (auto) 0.24 K/uL (0.00-0.02); Immature Granulocytes % (auto) 1.1 %; Lymphocytes # (auto) 0.58 K/uL (1.2-3.4); Lymphocytes % (auto) 2.6 %; Monocytes # (auto) 0.65 K/uL (0.24-0.82); Monocytes % (auto) 2.9 %; Neutrophils # (auto) 20.95 K/uL (1.4-6.5); Neutrophils % (auto) 93.3 %; Ovalocytes 1+
[2022-08-02] MEDS: BARICITINIB 2 MG TAB PO SCH (08:13)
[2022-08-02] MEDS: dexAMETHasone 6 MG in SYRINGE 0 ML IV SCH (08:15)
[2022-08-02] MEDS: ENOXAPARIN INJ 40 MG/0.4 ML SYR SQ SCH (08:17)
[2022-08-02] MEDS: DOCUSATE SODIUM 100 MG CAP PO SCH ×2 (08:18→21:32)
[2022-08-02] MEDS: ATORVASTATIN 20 MG TAB PO SCH (08:19)
[2022-08-02] MEDS: AMIODARONE 200 MG TAB PO SCH (08:19)
[2022-08-02] MEDS: LEVOTHYROXINE SODIUM 100 MCG TABLET PO SCH (08:19)
[2022-08-02] MEDS: METOPROLOL TARTRATE 25 MG TAB PO SCH ×2 (08:20→21:32)
[2022-08-02] MEDS: ASPIRIN 81 MG ECTAB PO SCH (08:20)
[2022-08-02] MEDS: FOLIC ACID 1 MG TAB PO SCH (08:21)
[2022-08-02] MEDS: CLOPIDOGREL BISULFATE 75 MG TAB PO SCH (08:21)
[2022-08-02] MEDS: PANTOprazole 40 MG TAB PO SCH (08:21)
[2022-08-02] MEDS: MULTIVITAMIN TAB PO SCH (08:22)
[2022-08-02] MEDS: ASCORBIC ACID 500 MG TAB PO SCH (08:22)
[2022-08-02] MEDS: allopurinoL 300 MG TAB PO SCH (08:22)
[2022-08-02] MEDS: POLYETHYLENE (MIRALAX) 17 GM PACK PO SCH ×2 (08:23→21:00)
[2022-08-02] MEDS: PIPERACILLIN/TAZOBACTAM 3.375 GM in DEXTROSE 5% 100 ML IV SCH ×3 (08:23→23:24)
[2022-08-02] MEDS ORDERED: SODIUM CHLORIDE 0.65% NA SOLN 45 ML (OCEAN) ONE (08:27)
[2022-08-02] MEDS ORDERED: BARICITINIB 2 MG TAB PO SCH (09:00)
[2022-08-02] MEDS: DOBUTamine / D5W 500 MG/250 ML BAG IV SCH (17:47)
--- NOTE | 2022-08-02 17:59 | Hospitalist Progress Note ---
Date of Service August 02, 2022 Assessment & Plan (1) Acute respiratory failure with hypoxia: Plan: Patient admitted with COVID-19 on 07/22 Vaccinated Moderna 11/19/20 12/17/20; Booster 09/2021 Initial oxygen requirement 3-6 liters nasal cannula, on room air at baseline Inflammatory markers were elevated and increased dexamethasone to BID dosing on 07/24, Pulmonary medicine feels little benefit at this time. O2 requirement worsened 07/25, currently requiring Hi Flow with FiO2 90-100%, remdesevir completed, and baricitinib completed CPAP overnight, high flow during the day wean as able. Major risk factors of age (86 years old) and severe cardiomyopathy (LVEF 25- 30%). Cardiac consultation agrees with short-term trial of dobutamine infusion to improve his cardiomyopathy and hopefully improve mobilization of fluid from any heart failure additive effects to his respiratory distress starting dobutamine at 3 mcg per kilo per minute on the evening of 08/01/2022 Patient changed his code status to DNR/DNI on 07/26 - re-discussed intubation 07/27 with both patient and and both agree he would not want this if he was to get worse. Azithromycin 500mg IV given 5 days (07/22 - 07/26) Zosyn 3.375mg IV q8h started 07/27 due to neutrophilia on admission and severity of illness - plan for 5-[address] for PE - negative for pulmonary emboli 07/27 Pulmonary consultation recommends maximal diuresis and cardiopulmonary status (2) Pneumonia due to COVID-19 virus: Plan: -See acute hypoxic respiratory failure (3) Electrolyte abnormality: Plan: Suspect hyponatremia due to Lasix use. Now on hold as below, holding Lasix. Hyperkalemia likely due to reduced renal function with intravascular depletion from Lasix. Lokelma 10mg as administered without improvement of potassium level is 5.2 and high normal is 5.1 there is no acute EKG changes we will continue to follow (4) Cardiomyopathy: Plan: Acute on chronic HFrEF treated and resolved started dobutamine gtt with cardiology oversight 08/01/22 Continue metoprolol changed to tartrate from succinate. Unable to tolerate Entresto due to low normal BP. 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% on resting echo March, (9) Hyperlipidemia: Plan: Continue atorvastatin (10) Hypothyroidism: Plan: Continue levothyroxine TSH normal in February 2021 - will defer repeating given severe acute illness as above and not suspecting hypo/hyperthyroidism contributing (11) Elevated LFTs: Plan: -No abdominal pain or jaundice -Likely due to current covid infection - downtrending Plan VTE Prophylaxis - Lovenox 40mg SQ daily Diet - heart healthy, low sodium Disposition - continued admission on PCU Admission and Anticipated Discharge Date Admission Date: July 22, 2022 Subjective pt remains on significant oxygen augmentation for his COVID. Pulmonary medicine recommends maximizing his cardiac status. Discussion with his long-term collection clerk, Dr. Saldaña, agrees that potential trial of a dobutamine infusion to improve his cardiopulmonary deficit to improve his oxygenation and mobilize more fluid from a heart failure standpoint He looks better perfused but does not feel subjectively better otherwise continue supportive care with oxygen augmentation for COVID infection Review of Systems Review of Systems: Moderate respiratory distress and fatigue no headache, no visual changes no speech or swallowing issues no chest pain, pressure or palpitations Significant shortness of breath with exertion nonproductive cough no abdominal pain, nausea or vomiting, diarrhea or constipation no dysuria, hematuria or frequency no focal joint pain plus trace peripheral edema no back pain, CVA tenderness or radicular pain no bruising, bleeding or rashes no focal signs of weakness or numbness or altered sensation no complaints of anxiety or depression.. Physical Exam Physical Exam: The patient appeared well nourished and normally developed. He is compensated with high flow oxygen but does become breathless with speaking and eating Vital signs as documented. Head exam is normocephalic atraumatic Neck is without JVD, thyromegaly, or carotid bruits. Lungs are coarse bilaterally with bibasilar rales Cardiac exam, Rhythm is regular.. Systolic ejection murmur is heard Abdominal exam reveals normal bowel sounds, soft non tender, no masses Extremities are trace edematous and both pedal pulses are present Neurologic exam is alert and oriented, no focal loss of strength or sensation Skin is without bruises or rashes Psychologically is without concerns for anxiety or depression.. Results & Data Results & Data ([facility]) Vital Signs (Past 12 Hours) Vital Signs Temp Pulse Pulse Pulse Resp BP Pulse Ox 08/02/22 15:50 78 20 131/68 93 08/02/22 15:42 78 20 96 08/02/22 11:41 97.5 F L 90 88 20 103/65 88 L 08/02/22 11:32 08/02/22 11:20 88 20 89 L 08/02/22 11:18 88 20 89 L 08/02/22 07:43 98.4 F 79 22 122/82 89 L 08/02/22 07:25 79 08/02/22 07:14 73 18 93 O2 Del Method O2 Flow Rate FiO2 08/02/22 15:50 High Flow Nasal Cannula 35 80 08/02/22 15:42 High Flow Nasal Cannula 35 80 08/02/22 11:41 High Flow Nasal Cannula 35 80 08/02/22 11:32 High Flow Nasal Cannula 08/02/22 11:20 High Flow Nasal Cannula 35 80 08/02/22 11:18 High Flow Nasal Cannula 35 80 08/02/22 07:43 High Flow Nasal Cannula 35 80 08/02/22 07:25 08/02/22 07:14 High Flow Nasal Cannula 35 70 PG Care Time/CCT Total # of Minutes Spent Total Time Spent with Patient: Total time spent is greater than 50% in coordination of care (as documented) at patient's floor/unit and/or counseling patient: Coding Level of Care Code 40474 Subseq Hosp Care Lvl 3 Diagnoses Acute respiratory failure with hypoxia J96.01 Pneumonia due to COVID-19 virus U07.1; J12.82 Electrolyte abnormality E87.8 Cardiomyopathy I25.5 Cardiomyopathy type: ischemic Acute on chronic HFrEF (heart failure with reduced ejection fraction) I50.23 Anemia D64.9 Coronary artery disease I25.10 ICD (implantable cardioverter-defibrillator) in place Z95.810 Hyperlipidemia E78.5 Hypothyroidism E03.9 Elevated LFTs R79.89 (1) Cardiomyopathy Cardiomyopathy type: ischemic Qualified Code(s): I25.5 - Ischemic cardiomyopathy
[2022-08-03] MEDS: guaiFENesin SUGAR FREE 200 MG/10 ML UDC PO SCH ×4 (03:47→21:16)
[2022-08-03 06:55] LABS: BUN Creatinine Ratio 37.8 (10-20); Calcium 8.9 mg/dl (8.5-10.1); Creatinine Clr Calc Pharmacy 35.9 ml/min; Est GFR (African American) 51.4 ml/min; Est GFR (Non-African American) 44.3 ml/min; Potassium 4.7 mmol/L (3.5-5.1)
[2022-08-03] MEDS: PIPERACILLIN/TAZOBACTAM 3.375 GM in DEXTROSE 5% 100 ML IV SCH (07:22)
[2022-08-03] MEDS: ALBUTEROL 0.5% NEB SOLN 2.5 MG/0.5 ML VIAL NEB SCH ×4 (07:32→19:02)
[2022-08-03] MEDS: dexAMETHasone 6 MG in SYRINGE 0 ML IV SCH (08:02)
[2022-08-03] MEDS: METOPROLOL TARTRATE 25 MG TAB PO SCH ×2 (08:02→21:21)
[2022-08-03] MEDS: MULTIVITAMIN TAB PO SCH (08:03)
[2022-08-03] MEDS: PANTOprazole 40 MG TAB PO SCH (08:03)
[2022-08-03] MEDS: CLOPIDOGREL BISULFATE 75 MG TAB PO SCH (08:03)
[2022-08-03] MEDS: DOCUSATE SODIUM 100 MG CAP PO SCH ×2 (08:03→21:15)
[2022-08-03] MEDS: allopurinoL 300 MG TAB PO SCH (08:03)
[2022-08-03] MEDS: FOLIC ACID 1 MG TAB PO SCH (08:03)
[2022-08-03] MEDS: ATORVASTATIN 20 MG TAB PO SCH (08:03)
[2022-08-03] MEDS: ENOXAPARIN INJ 40 MG/0.4 ML SYR SQ SCH (08:04)
[2022-08-03] MEDS: LEVOTHYROXINE SODIUM 100 MCG TABLET PO SCH (08:04)
[2022-08-03] MEDS: ASPIRIN 81 MG ECTAB PO SCH (08:04)
[2022-08-03] MEDS: AMIODARONE 200 MG TAB PO SCH (08:04)
[2022-08-03] MEDS: ASCORBIC ACID 500 MG TAB PO SCH (08:04)
[2022-08-03] MEDS: POLYETHYLENE (MIRALAX) 17 GM PACK PO SCH ×2 (08:04→21:15)
[2022-08-03] MEDS: BARICITINIB 2 MG TAB PO SCH (08:15)
[2022-08-03] MEDS: DOBUTamine / D5W 500 MG/250 ML BAG IV SCH (15:30)
--- NOTE | 2022-08-03 17:22 | Hospitalist Progress Note ---
Date of Service August 03, 2022 Assessment & Plan (1) Acute respiratory failure with hypoxia: Plan: Patient admitted with COVID-19 on 07/22 Vaccinated Moderna 11/19/20 12/17/20; Booster 09/2021 Initial oxygen requirement 3-6 liters nasal cannula, on room air at baseline Inflammatory markers were elevated and increased dexamethasone to BID dosing on 07/24, Pulmonary medicine feels little benefit at this time. O2 requirement worsened 07/25, currently requiring Hi Flow with FiO2 90-100%, remdesevir completed, and baricitinib completed CPAP overnight, able to wean high flow a small amount Major risk factors of age (86 years old) and severe cardiomyopathy (LVEF 25- 30%). Cardiac consultation agrees with short-term trial of dobutamine infusion to improve his cardiomyopathy and hopefully improve mobilization of fluid from any heart failure additive effects to his respiratory distress starting dobutamine at 3 mcg per kilo per minute on the evening of 08/01/2022 Patient changed his code status to DNR/DNI on 07/26 - re-discussed intubation 07/27 with both patient and and both agree he would not want this if he was to get worse. Azithromycin 500mg IV given 5 days (07/22 - 07/26) Zosyn 3.375mg IV q8h started 07/27 due to neutrophilia on admission and severity of illness - plan for 5-[address] for PE - negative for pulmonary emboli 07/27 Pulmonary consultation recommends maximal diuresis and cardiopulmonary status (2) Pneumonia due to COVID-19 virus: Plan: -See acute hypoxic respiratory failure (3) Electrolyte abnormality: Plan: Suspect hyponatremia due to Lasix use. Now on hold Hyperkalemia likely due to reduced renal function with intravascular depletion from Lasix. Lokelma 10mg as administered without improvement of potassium level is 5.2 and high normal is 5.1 there is no acute EKG changes we will continue to follow (4) Cardiomyopathy: Plan: Acute on chronic HFrEF treated and resolved started dobutamine gtt with cardiology oversight 08/01/22 Continue metoprolol changed to tartrate from succinate. Unable to tolerate Entresto due to low normal BP. 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% on resting echo March, (9) Hyperlipidemia: Plan: Continue atorvastatin (10) Hypothyroidism: Plan: Continue levothyroxine TSH normal in February 2021 - will defer repeating given severe acute illness as above and not suspecting hypo/hyperthyroidism contributing (11) Elevated LFTs: Plan: -No abdominal pain or jaundice -Likely due to current covid infection - downtrending Plan VTE Prophylaxis - Lovenox 40mg SQ daily Diet - heart healthy, low sodium Disposition - continued admission on PCU Admission and Anticipated Discharge Date Admission Date: July 22, 2022 Subjective pt remains on significant oxygen augmentation for his COVID. Pulmonary medicine recommends maximizing his cardiac status. Discussion with his long-term fruit cutter, Dr. Saldaña, agrees that potential trial of a dobutamine infusion to improve his cardiopulmonary deficit to improve his oxygenation and mobilize more fluid from a heart failure standpoint He looks better perfused but continues to not feel subjectively better otherwise continue supportive care with oxygen augmentation for COVID infection Review of Systems Review of Systems: Moderate respiratory distress and fatigue no headache, no visual changes no speech or swallowing issues no chest pain, pressure or palpitations Significant shortness of breath with exertion nonproductive cough no abdominal pain, nausea or vomiting, diarrhea or constipation no dysuria, hematuria or frequency no focal joint pain plus trace peripheral edema no back pain, CVA tenderness or radicular pain no bruising, bleeding or rashes no focal signs of weakness or numbness or altered sensation no complaints of anxiety or depression.. Physical Exam Physical Exam: The patient appeared well nourished and normally developed. He is compensated with high flow oxygen but does become breathless with speaking and eating Vital signs as documented. Head exam is normocephalic atraumatic Neck is without JVD, thyromegaly, or carotid bruits. Lungs are coarse bilaterally with bibasilar rales Cardiac exam, Rhythm is regular.. Systolic ejection murmur is heard Abdominal exam reveals normal bowel sounds, soft non tender, no masses Extremities are trace edematous and both pedal pulses are present Neurologic exam is alert and oriented, no focal loss of strength or sensation Skin is without bruises or rashes Psychologically is without concerns for anxiety or depression.. Results & Data Results & Data ([facility]) Vital Signs (Past 12 Hours) Vital Signs Temp Pulse Pulse Resp BP Pulse Ox O2 Del Method 08/03/22 16:00 86 08/03/22 15:35 97.3 F L 91 H 20 124/74 90 08/03/22 14:43 88 18 88 L High Flow Nasal Cannula 08/03/22 13:00 97.9 F 88 20 114/62 89 L High Flow Nasal Cannula 08/03/22 11:13 85 18 90 High Flow Nasal Cannula 08/03/22 11:14 84 18 90 High Flow Nasal Cannula 08/03/22 08:28 High Flow Nasal Cannula 08/03/22 08:28 86 08/03/22 07:32 88 20 93 High Flow Nasal Cannula 08/03/22 07:22 97.5 F L 89 20 119/68 94 High Flow Nasal Cannula O2 Flow Rate FiO2 08/03/22 16:00 08/03/22 15:35 08/03/22 14:43 35 60 08/03/22 13:00 35 60 08/03/22 11:13 35 60 08/03/22 11:14 35 60 08/03/22 08:28 35 60 08/03/22 08:28 08/03/22 07:32 35 60 08/03/22 07:22 35 70 PG Care Time/CCT Total # of Minutes Spent Total Time Spent with Patient: Total time spent is greater than 50% in coordination of care (as documented) at patient's floor/unit and/or counseling patient: Coding Level of Care Code 59402 Subseq Hosp Care Lvl 3 Diagnoses Acute respiratory failure with hypoxia J96.01 Pneumonia due to COVID-19 virus U07.1; J12.82 Electrolyte abnormality E87.8 Cardiomyopathy I25.5 Cardiomyopathy type: ischemic Acute on chronic HFrEF (heart failure with reduced ejection fraction) I50.23 Anemia D64.9 Coronary artery disease I25.10 ICD (implantable cardioverter-defibrillator) in place Z95.810 Hyperlipidemia E78.5 Hypothyroidism E03.9 Elevated LFTs R79.89 (1) Cardiomyopathy Cardiomyopathy type: ischemic Qualified Code(s): I25.5 - Ischemic cardiomyopathy
[2022-08-04] MEDS: guaiFENesin SUGAR FREE 200 MG/10 ML UDC PO SCH ×4 (03:32→19:51)
[2022-08-04] MEDS: ALBUTEROL 0.5% NEB SOLN 2.5 MG/0.5 ML VIAL NEB SCH ×4 (07:26→19:10)
[2022-08-04] MEDS: METOPROLOL TARTRATE 25 MG TAB PO SCH ×2 (07:50→19:51)
[2022-08-04] MEDS: ASCORBIC ACID 500 MG TAB PO SCH (07:51)
[2022-08-04] MEDS: LEVOTHYROXINE SODIUM 100 MCG TABLET PO SCH (07:51)
[2022-08-04] MEDS: ATORVASTATIN 20 MG TAB PO SCH (07:52)
[2022-08-04] MEDS: FOLIC ACID 1 MG TAB PO SCH (07:52)
[2022-08-04] MEDS: ASPIRIN 81 MG ECTAB PO SCH (07:52)
[2022-08-04] MEDS: DOCUSATE SODIUM 100 MG CAP PO SCH ×2 (07:52→19:51)
[2022-08-04] MEDS: allopurinoL 100 MG TAB PO SCH (07:53)
[2022-08-04] MEDS: AMIODARONE 200 MG TAB PO SCH (07:53)
[2022-08-04] MEDS: CLOPIDOGREL BISULFATE 75 MG TAB PO SCH (07:53)
[2022-08-04] MEDS: PANTOprazole 40 MG TAB PO SCH (07:53)
[2022-08-04] MEDS: MULTIVITAMIN TAB PO SCH (07:54)
[2022-08-04] MEDS: ENOXAPARIN INJ 40 MG/0.4 ML SYR SQ SCH (07:54)
[2022-08-04] MEDS: POLYETHYLENE (MIRALAX) 17 GM PACK PO SCH ×2 (07:55→19:51)
[2022-08-04 08:20] LABS: Hematocrit (blood only) 28.7 % (40.1-51.0); Hemoglobin 10.5 g/dl (14.0-18.0); Mean Corpuscular Hemoglobin 40.4 pg (25.0-34.0); Mean Corpuscular Hgb Conc 36.6 g/dL (32.0-36.0); Mean Corpuscular Volume 110.4 fL (80.0-100.0); Mean Platelet Volume 11.8 fL (9.4-12.4); Platelet Count 179 K/uL (130-400); RDW Standard Deviation 51.8 fL (36.4-46.3); White Blood Count 23.89 K/ul (4.8-10.8)
[2022-08-04] MEDS: dexAMETHasone 6 MG in SYRINGE 0 ML IV SCH (08:45)
[2022-08-04] MEDS: BARICITINIB 2 MG TAB PO SCH (08:45)
[2022-08-04 09:00] LABS: BUN Creatinine Ratio 40.8 (10-20); C Reactive Protein 3.65 mg/dl (0-0.5); Creatinine Clr Calc Pharmacy 37.4 ml/min; Est GFR (African American) 57.7 ml/min; Est GFR (Non-African American) 49.8 ml/min; Potassium 4.8 mmol/L (3.5-5.1)
[2022-08-04 09:05] LABS: Basophils # (auto) 0.03 K/uL (0-0.2); Basophils % (auto) 0.1 %; Immature Granulocytes # (auto) 0.31 K/uL (0.00-0.02); Immature Granulocytes % (auto) 1.3 %; Lymphocytes # (auto) 0.58 K/uL (1.2-3.4); Lymphocytes % (auto) 2.4 %; Macrocytosis Present; Monocytes # (auto) 0.59 K/uL (0.24-0.82); Monocytes % (auto) 2.5 %; Neutrophils # (auto) 22.38 K/uL (1.4-6.5); Neutrophils % (auto) 93.7 %; Ovalocytes 2+; Polychromasia 1+
[2022-08-04] MEDS ORDERED: DEXTROSE 10% 1,000 ML IV PRN (13:50)
[2022-08-04] MEDS ORDERED: TPN/PPN CONSULT PHARMACY STA (14:09)
--- NOTE | 2022-08-04 14:20 | Hospitalist Progress Note ---
Date of Service August 04, 2022 Assessment & Plan (1) Acute respiratory failure with hypoxia: Plan: Patient admitted with COVID-19 on 07/22 Vaccinated Moderna 11/19/20 12/17/20; Booster 09/2021 Initial oxygen requirement 3-6 liters nasal cannula, on room air at baseline Inflammatory markers were elevated and increased dexamethasone to BID dosing on 07/24, Pulmonary medicine feels little benefit at this time. O2 requirement worsened 07/25, currently requiring Hi Flow with FiO2 90-100%, remdesevir completed, and baricitinib completed CPAP overnight, able to wean high flow a small amount Major risk factors of age (86 years old) and severe cardiomyopathy (LVEF 25- 30%). Cardiac consultation agrees with short-term trial of dobutamine infusion to improve his cardiomyopathy and hopefully improve mobilization of fluid from any heart failure additive effects to his respiratory distress starting dobutamine at 3 mcg per kilo per minute on the evening of 08/01/2022 Patient changed his code status to DNR/DNI on 07/26 - re-discussed intubation 07/27 with both patient and and both agree he would not want this if he was to get worse. Azithromycin 500mg IV given 5 days (07/22 - 07/26) Zosyn completed CT for PE - negative for pulmonary emboli 07/27 cxr 08/04 shows subcutaneous emphysema Pulmonary consultation recommends using highflow but reducing flow liter rate and if needed go up on fio2 (2) Pneumonia due to COVID-19 virus: Plan: -See acute hypoxic respiratory failure no worsening cxr, persistent leukocytosis checking urine, no diarrhea for c diff concern, no fever to check blood cultures (3) Electrolyte abnormality: Plan: Suspect hyponatremia due to Lasix use. Now on hold Hyperkalemia likely due to reduced renal function Lokelma 10mg as administered with normalized potassium (4) Cardiomyopathy: Plan: Acute on chronic HFrEF treated and resolved started dobutamine gtt with cardiology oversight 08/01/22 stopped am 08/04/22, no real clinical change Continue metoprolol changed to tartrate from succinate. Unable to tolerate Entresto due to low normal BP. 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% on resting echo March, (9) Hyperlipidemia: Plan: Continue atorvastatin (10) Hypothyroidism: Plan: Continue levothyroxine TSH normal in February 2021 - will defer repeating given severe acute illness as above and not suspecting hypo/hyperthyroidism contributing (11) Elevated LFTs: Plan: -No abdominal pain or jaundice -Likely due to current covid infection - resolving Plan VTE Prophylaxis - Lovenox 40mg SQ daily depression starting effexor Diet - heart healthy, low sodium, pt will not eat, will have short 48 hour tiral of ppn and increased motivational pressure to eat Admission and Anticipated Discharge Date Admission Date: July 22, 2022 Subjective pt remains on significant oxygen augmentation for his COVID. Pulmonary medicine recommended maximizing his cardiac status, cardiology agreed to 48 hours of dobutamine infusion to improve his cardiopulmonary deficit, there has been little clinical improvement continues to not feel subjectively better, no appetite, seems depressed leukocytosis, presists CXR shows subcutaneoius air, no pneumo, will ask RT to reduce liter flow rate and compensate with increased fio2, otherwise continue supportive care with oxygen augmentation for COVID infection Review of Systems Review of Systems: Moderate respiratory distress and fatigue no headache, no visual changes no speech or swallowing issues no chest pain, pressure or palpitations Significant shortness of breath with exertion nonproductive cough no abdominal pain, nausea or vomiting, diarrhea or constipation no dysuria, hematuria or frequency no focal joint pain plus trace peripheral edema no back pain, CVA tenderness or radicular pain no bruising, bleeding or rashes no focal signs of weakness or numbness or altered sensation no complaints of anxiety or depression.. Physical Exam Physical Exam: The patient appeared well nourished and normally developed. He is compensated with high flow oxygen but does become breathless with speaking and eating Vital signs as documented. Head exam is normocephalic atraumatic Neck is without JVD, thyromegaly, or carotid bruits. Lungs are coarse bilaterally with bibasilar rales Cardiac exam, Rhythm is regular.. Systolic ejection murmur is heard Abdominal exam reveals normal bowel sounds, soft non tender, no masses Extremities are trace edematous and both pedal pulses are present Neurologic exam is alert and oriented, no focal loss of strength or sensation Skin is without bruises or rashes Psychologically is with concerns for depression.. Results & Data Results & Data ([facility]) Vital Signs (Past 12 Hours) Vital Signs Temp Pulse Pulse Resp BP Pulse Ox O2 Del Method 08/04/22 12:15 98.2 F 84 24 123/71 91 High Flow Nasal Cannula 08/04/22 11:45 83 20 95 High Flow Nasal Cannula 08/04/22 08:00 High Flow Nasal Cannula 08/04/22 06:12 90 08/04/22 07:50 55 L 18 96 High Flow Nasal Cannula 08/04/22 08:44 24 92 High Flow Nasal Cannula 08/04/22 07:48 97.9 F 87 18 119/73 94 High Flow Nasal Cannula 08/04/22 03:29 98.1 F 84 17 110/70 94 High Flow Nasal Cannula 08/04/22 03:26 87 18 93 High Flow Nasal Cannula O2 Flow Rate FiO2 08/04/22 12:15 35 65 08/04/22 11:45 35 70 08/04/22 08:00 35 65 08/04/22 06:12 08/04/22 07:50 35 65 08/04/22 08:44 35 70 08/04/22 07:48 35 65 08/04/22 03:29 08/04/22 03:26 35 65 PG Care Time/CCT Total # of Minutes Spent Total Time Spent with Patient: Total time spent is greater than 50% in coordination of care (as documented) at patient's floor/unit and/or counseling patient: Coding Level of Care Code 46549 Subseq Hosp Care Lvl 3 Diagnoses Acute respiratory failure with hypoxia J96.01 Pneumonia due to COVID-19 virus U07.1; J12.82 Electrolyte abnormality E87.8 Cardiomyopathy I25.5 Cardiomyopathy type: ischemic Acute on chronic HFrEF (heart failure with reduced ejection fraction) I50.23 Anemia D64.9 Coronary artery disease I25.10 ICD (implantable cardioverter-defibrillator) in place Z95.810 Hyperlipidemia E78.5 Hypothyroidism E03.9 Elevated LFTs R79.89 (1) Cardiomyopathy Cardiomyopathy type: ischemic Qualified Code(s): I25.5 - Ischemic cardiomyopathy
[2022-08-04] MEDS ORDERED: TPN/PPN CONSULT PHARMACY PRN (14:49)
[2022-08-04] MEDS ORDERED: D5W AND NSS 1,000 ML IV SCH (15:00)
[2022-08-04] MEDS: VENLAFAXINE HCL XR 37.5 MG CAPXR PO SCH (15:20)
[2022-08-04] MEDS: SODIUM CHLORIDE 0.9% 1000ML 1,000 ML IV SCH (16:45)
--- NOTE | 2022-08-04 16:58 | XRay Report ---
XR chest 1V portable CLINICAL HISTORY: covid with slow progression TECHNIQUE: Single frontal radiograph of the chest was obtained. Comparison: Comparison is made to chest radiograph 07/30/2022 FINDINGS: Pacemaker defibrillator is seen. Cardiomegaly is noted. Multifocal airspace opacities are seen. Subcu taneous emphysema is seen. There is suggestion of a left apical pneumothorax although evaluation is l imited due to overlying subcutaneous emphysema. IMPRESSION: 1. Interval development of suggestion of a left apical pneumothorax as well as subcutaneous emphysem a. 2. Stable multifocal airspace opacities compatible with Covid pneumonia. A call was placed with the patient's provider at the time of dictation. ACT 112: Negative or not required by law. Electronically signed by: Sumit Goldstein M.D. 08/04/2022 4:56 PM
--- NOTE | 2022-08-04 21:53 | XRay Report ---
SINGLE VIEW CHEST CLINICAL HISTORY: Follow-up pneumothorax. FINDINGS: An AP, portable, upright chest radiograph is compared to study performed earlier the same d ay 08/04/2022 and correlated with chest CT dated 07/27/2022. A 2-lead cardiac AICD is unchanged in po sition. Calcified mediastinal lymph nodes are again noted. The heart is enlarged noting atherosclerot ic calcification of the thoracic aorta. Multifocal airspace consolidation is similar to previous. No large pleural effusion is identified. Small bilateral pneumothoraces are suspected. The bony thorax i s grossly intact. Subcutaneous emphysema is again seen in the lower neck and upper lateral chest wall bilaterally. IMPRESSION: 1. Small apical pneumothoraces are suspected bilaterally. These are difficult to assess due to overly ing subcutaneous emphysema. 2. Multifocal airspace consolidation is similar to previous. 3. Cardiomegaly and AICD. ACT 112: Negative or not required by law. Electronically signed by: Kun Celeste M.D. 08/04/2022 9:50 PM
[2022-08-05] MEDS: guaiFENesin SUGAR FREE 200 MG/10 ML UDC PO SCH ×5 (03:59→20:24)
[2022-08-05] MEDS: SODIUM CHLORIDE 0.9% 1000ML 1,000 ML IV SCH (05:12)
[2022-08-05 06:27] LABS: Hematocrit (blood only) 26.2 % (40.1-51.0); Hemoglobin 9.6 g/dl (14.0-18.0); Mean Corpuscular Hemoglobin 40.3 pg (25.0-34.0); Mean Corpuscular Hgb Conc 36.6 g/dL (32.0-36.0); Mean Corpuscular Volume 110.1 fL (80.0-100.0); Mean Platelet Volume 11.4 fL (9.4-12.4); Platelet Count 184 K/uL (130-400); RDW Coefficient of Variation 13.1 % (11.5-14.5); RDW Standard Deviation 52.3 fL (36.4-46.3); Red Blood Count 2.38 M/uL (4.63-6.08); White Blood Count 18.85 K/ul (4.8-10.8)
[2022-08-05] MEDS: ALBUTEROL 0.5% NEB SOLN 2.5 MG/0.5 ML VIAL NEB SCH ×4 (07:26→19:27)
[2022-08-05 07:28] LABS: Calcium 8.5 mg/dl (8.5-10.1); Creatinine Clr Calc Pharmacy 44.7 ml/min; Est GFR (African American) 68.3 ml/min; Est GFR (Non-African American) 58.9 ml/min; Magnesium 2.6 mg/dl (1.7-2.4); Phosphorus 3.3 mg/dl (2.5-4.9); Potassium 4.6 mmol/L (3.5-5.1)
[2022-08-05] MEDS: dexAMETHasone 6 MG in SYRINGE 0 ML IV SCH (08:20)
[2022-08-05] MEDS: VENLAFAXINE HCL XR 37.5 MG CAPXR PO SCH (08:21)
[2022-08-05] MEDS: DOCUSATE SODIUM 100 MG CAP PO SCH ×2 (08:21→20:24)
[2022-08-05] MEDS: MULTIVITAMIN TAB PO SCH (08:21)
[2022-08-05] MEDS: ENOXAPARIN INJ 40 MG/0.4 ML SYR SQ SCH (08:21)
[2022-08-05] MEDS: CLOPIDOGREL BISULFATE 75 MG TAB PO SCH (08:22)
[2022-08-05] MEDS: ASCORBIC ACID 500 MG TAB PO SCH (08:22)
[2022-08-05] MEDS: AMIODARONE 200 MG TAB PO SCH (08:22)
[2022-08-05] MEDS: ASPIRIN 81 MG ECTAB PO SCH (08:22)
[2022-08-05] MEDS: METOPROLOL TARTRATE 25 MG TAB PO SCH ×2 (08:23→20:25)
[2022-08-05] MEDS: ATORVASTATIN 20 MG TAB PO SCH (08:23)
[2022-08-05] MEDS: FOLIC ACID 1 MG TAB PO SCH (08:24)
[2022-08-05] MEDS: PANTOprazole 40 MG TAB PO SCH (08:24)
[2022-08-05] MEDS: LEVOTHYROXINE SODIUM 100 MCG TABLET PO SCH (08:24)
[2022-08-05] MEDS: allopurinoL 100 MG TAB PO SCH (08:24)
[2022-08-05] MEDS: POLYETHYLENE (MIRALAX) 17 GM PACK PO SCH ×2 (08:25→20:24)
--- NOTE | 2022-08-05 13:48 | Pharmacy Report ---
Pharmacy PN Initial Consult - Date of Service August 05, 2022 - Scope Pharmacy has been consulted to manage parenteral nutrition orders and order appropriate labs. As part of the Nutrition Support Team guidelines, pharmacy will work in conjunction with dietary when determining the patients caloric needs. - Subjective The patient is a 86 year old M admitted on 07/22/22 11:20 for SOB. Patient is to receive parenteral nutrition for prolonged NPO/minimal PO intake in context of COVID-19 pneumonia. - Objective Height: 5 ft 8 in Weight: 66.1 kg Intake & Output (Last 24Hrs): Intake & Output 08/03/22 08/04/22 08/05/22 08/06/22 06:59 06:59 06:59 06:59 Intake Total 495.36 / 495.36 315 / 315 1183.75 / 1183.75 Output Total 500 / 500 1000 / 1000 825 / 825 Balance -4.64 / -4.64 -685 / -685 358.75 / 358.75 Weight 67.2 kg 63.6 kg 66.1 kg Laboratory Data (Last 24 Hrs):: 08/05/22 05:50 Sodium 133 L Potassium 4.6 Chloride 103 Carbon Dioxide 24 BUN 52 H Creatinine 1.13 Glucose 131 H Calcium 8.5 Phosphorus 3.3 Magnesium 2.6 H Total Bilirubin 1.0 AST 17 ALT 23 Alkaline Phosphatase 115 H Triglycerides 153 H Nutrition Assessment:: Please refer to the Notes section of the EMR for the most recent paste thinner note. - Assessment * WD is a 86 year old male admitted to [facility] on 07/22 for acute respiratory failure secondary to COVID-19 pneumonia * Patient has had poor oral intake for majority of admission * Macronutrients for PPN provided by dietary, will plan to titrate up to this goal tomorrow pending repeat labs * Goals: Clinimix 4.25/5% infused @75 mL/hr to equal ~77 g AA, 90 g dextrose, and 50 g lipids * Labs all largely WNL except for: * Sodium of 133 mmol/L - will likely be unable to provide adequate sodium content in PPN due to osmolarity limitations. * Magnesium of 2.6 mg/dL - will hold off on magnesium in PPN today. * Triglycerides mildly elevated at 153 mg/dL - will proceed with lipids for sake of calories * Plan is likely for short-term PPN - Plan For day 1 of PN administration, the following will be ordered: Macronutrients Amino acids 43 grams/day Dextrose 50 grams/day Lipids 50 grams/day Micronutrients Sodium phosphate 15 MMol Sodium chloride 40 mEq Sodium acetate 40 mEql Potassium chloride 40 mEq Calcium gluconate 4.65 mEq Multivitamins 10 mL Trace Elements 10 mL Additional additives: thiamine 100 mg Total volume 1083 mL to be infused over 24 hrs will provide 840 kcal/day Final osmolarity 883 mOsm/L (maximum for PPN is 900 mOsm/L) Labs to be ordered per PN order protocol Pharmacy will follow and adjust parenteral nutrition orders on a daily basis. Thank you.
--- NOTE | 2022-08-05 15:01 | Hospitalist Progress Note ---
Date of Service August 05, 2022 Assessment & Plan (1) Acute respiratory failure with hypoxia: Plan: Patient admitted with COVID-19 on 07/22 Vaccinated Moderna 11/19/20 12/17/20; Booster 09/2021 Initial oxygen requirement 3-6 liters nasal cannula, O2 requirement worsened 07/25, currently requiring Hi Flow with FiO2 90-100%, remdesevir completed, and baricitinib completed, steroids completed avoid positive pressure ventilation so as not to worsen pneumothorax Major risk factors of age (86 years old) and severe cardiomyopathy (LVEF 25- 30%). no help with oxygen req with dobutamine Patient changed his code status to DNR/DNI on 07/26 - re-discussed intubation 07/27 with both patient and and both agree he would not want this if he was to get worse. Azithromycin 500mg IV given 5 days (07/22 - 07/26) Zosyn completed CT for PE - negative for pulmonary emboli 07/27 cxr 08/04 shows subcutaneous emphysema, small apical pneumothoraces Pulmonary consultation recommends using highflow but reducing flow liter rate and if needed go up on fio2 (2) Pneumonia due to COVID-19 virus: Plan: -See acute hypoxic respiratory failure no worsening cxr, persistent leukocytosis negative urine, no diarrhea for c diff concern, no fever to check blood cultures (3) Electrolyte abnormality: Plan: Resolved Suspect hyponatremia due to Lasix use. Now on hold Hyperkalemia likely due to reduced renal function Lokelma 10mg as administered with normalized potassium (4) Cardiomyopathy: Plan: Acute on chronic HFrEF treated and resolved started dobutamine gtt with cardiology oversight 08/01/22 stopped am 08/04/22, no real clinical change Continue metoprolol changed to tartrate from succinate. Unable to tolerate Entresto due to low normal BP. 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% on resting echo March, (9) Hyperlipidemia: Plan: Continue atorvastatin (10) Hypothyroidism: Plan: Continue levothyroxine TSH normal in February 2021 - will defer repeating given severe acute illness as above and not suspecting hypo/hyperthyroidism contributing (11) Elevated LFTs: Plan: -No abdominal pain or jaundice -Likely due to current covid infection - resolving Plan VTE Prophylaxis - Lovenox 40mg SQ daily depression starting effexor 08/04 Diet - heart healthy, low sodium, pt will not eat, will have short 48 hour tiral of ppn and increased motivational pressure to eat Admission and Anticipated Discharge Date Admission Date: July 22, 2022 Subjective pt remains on significant oxygen augmentation for his COVID. Pulmonary medicine recommended maximizing his cardiac status, cardiology agreed to 48 hours of dobutamine infusion to improve his cardiopulmonary deficit, there has been little clinical improvement developed bilateral apical pneumothoraxes and subcut emphysema 08/04 continues to not feel subjectively better, no appetite, seems depressed leukocytosis, persists will ask RT to reduce liter flow rate and compensate with increased fio2, otherwise continue supportive care with oxygen augmentation for COVID infection, added PPN for 48 hours to try to improve strenth to eat Review of Systems Review of Systems: Moderate respiratory distress and fatigue no headache, no visual changes no speech or swallowing issues no chest pain, pressure or palpitations Significant shortness of breath with exertion nonproductive cough no abdominal pain, nausea or vomiting, diarrhea or constipation no dysuria, hematuria or frequency no focal joint pain plus trace peripheral edema no back pain, CVA tenderness or radicular pain no bruising, bleeding or rashes no focal signs of weakness or numbness or altered sensation no complaints of anxiety or depression.. Physical Exam Physical Exam: The patient appeared well nourished and normally developed. He is compensated with high flow oxygen but does become breathless with speaking and eating Vital signs as documented. Head exam is normocephalic atraumatic Neck is without JVD, thyromegaly, or carotid bruits. Lungs are coarse bilaterally with bibasilar rales Cardiac exam, Rhythm is regular.. Systolic ejection murmur is heard Abdominal exam reveals normal bowel sounds, soft non tender, no masses Extremities are trace edematous and both pedal pulses are present Neurologic exam is alert and oriented, no focal loss of strength or sensation Skin is without bruises or rashes Psychologically is with concerns for depression.. Results & Data Results & Data ([facility]) Vital Signs (Past 12 Hours) Vital Signs Temp Pulse Pulse Resp BP Pulse Ox O2 Del Method 08/05/22 11:47 97.7 F 78 18 117/74 90 High Flow Nasal Cannula 08/05/22 10:57 75 20 91 High Flow Nasal Cannula 08/05/22 08:00 High Flow Nasal Cannula 08/05/22 08:00 79 08/05/22 08:17 99.3 F 85 22 121/71 90 High Flow Nasal Cannula 08/05/22 07:42 76 22 89 L High Flow Nasal Cannula 08/05/22 04:13 79 16 121/74 93 High Flow Nasal Cannula 08/05/22 03:14 83 20 91 High Flow Nasal Cannula O2 Flow Rate FiO2 08/05/22 11:47 08/05/22 10:57 20 90 08/05/22 08:00 20 90 08/05/22 08:00 08/05/22 08:17 20 90 08/05/22 07:42 20 70 08/05/22 04:13 08/05/22 03:14 20 70 PG Care Time/CCT Total # of Minutes Spent Total Time Spent with Patient: Total time spent is greater than 50% in coordination of care (as documented) at patient's floor/unit and/or counseling patient: Coding Level of Care Code 54243 Subseq Hosp Care Lvl 3 Diagnoses Acute respiratory failure with hypoxia J96.01 Pneumonia due to COVID-19 virus U07.1; J12.82 Electrolyte abnormality E87.8 Cardiomyopathy I25.5 Cardiomyopathy type: ischemic Acute on chronic HFrEF (heart failure with reduced ejection fraction) I50.23 Anemia D64.9 Coronary artery disease I25.10 ICD (implantable cardioverter-defibrillator) in place Z95.810 Hyperlipidemia E78.5 Hypothyroidism E03.9 Elevated LFTs R79.89 (1) Cardiomyopathy Cardiomyopathy type: ischemic Qualified Code(s): I25.5 - Ischemic cardiomyopathy
--- NOTE | 2022-08-05 15:01 | XRay Report ---
XR chest 1V portable CLINICAL HISTORY: eval pneumothorax TECHNIQUE: Single frontal radiograph of the chest was obtained. Comparison: Comparison is made to chest radiograph 08/04/2022 FINDINGS: Pacemaker defibrillator is seen. Cardiomegaly is noted. Multifocal airspace opacities are seen. Redem onstration of likely bilateral pneumothoraces. Evaluation is again limited by subcutaneous emphysema. However, these appear similar in size to prior exam. IMPRESSION: 1. Likely bilateral pneumothoraces are similar in size to prior exam. Redemonstration of subcutaneou s emphysema. 2. Interval stability of multifocal airspace opacities. 3. Cardiomegaly and AICD. ACT 112: Negative or not required by law. Electronically signed by: Sumit Goldstein M.D. 08/05/2022 2:58 PM
[2022-08-05] MEDS ORDERED: D5W IV SCH (16:00)
[2022-08-05] MEDS ORDERED: AMINO ACIDS 4.25% IV SCH (16:00)
[2022-08-05] MEDS ORDERED: PERIPHERAL TPN IV SCH (16:00)
[2022-08-05] MEDS: CLINOLIPID 20% IV FAT EMULSION 250 ML IV SCH ×2 (16:12→23:09)
[2022-08-05] MEDS ORDERED: STOP CLINOLIPID SCH (22:00)
[2022-08-06] MEDS: guaiFENesin SUGAR FREE 200 MG/10 ML UDC PO SCH ×3 (02:38→14:21)
[2022-08-06] MEDS: CLINOLIPID 20% IV FAT EMULSION 250 ML IV SCH ×2 (04:51→10:05)
[2022-08-06 06:19] LABS: Hematocrit (blood only) 25.6 % (40.1-51.0); Hemoglobin 9.1 g/dl (14.0-18.0); Mean Corpuscular Hemoglobin 39.6 pg (25.0-34.0); Mean Corpuscular Hgb Conc 35.5 g/dL (32.0-36.0); Mean Corpuscular Volume 111.3 fL (80.0-100.0); Mean Platelet Volume 11.1 fL (9.4-12.4); Platelet Count 164 K/uL (130-400); RDW Standard Deviation 52.6 fL (36.4-46.3); White Blood Count 20.07 K/ul (4.8-10.8)
[2022-08-06 06:43] LABS: Calcium 8.6 mg/dl (8.5-10.1); Est GFR (African American) 87.6 ml/min; Est GFR (Non-African American) 75.6 ml/min; Magnesium 2.3 mg/dl (1.7-2.4); Phosphorus 2.6 mg/dl (2.5-4.9); Potassium 4.7 mmol/L (3.5-5.1)
[2022-08-06 07:00] LABS: Basophils # (auto) 0.02 K/uL (0-0.2); Basophils % (auto) 0.1 %; Eosinophils # (auto) 0.01 K/uL (0-0.50); Immature Granulocytes # (auto) 0.32 K/uL (0.00-0.02); Immature Granulocytes % (auto) 1.6 %; Lymphocytes # (auto) 0.52 K/uL (1.2-3.4); Lymphocytes % (auto) 2.6 %; Macrocytosis Present; Monocytes # (auto) 0.41 K/uL (0.24-0.82); Neutrophils # (auto) 18.79 K/uL (1.4-6.5); Neutrophils % (auto) 93.7 %; Ovalocytes 1+
[2022-08-06] MEDS: ALBUTEROL 0.5% NEB SOLN 2.5 MG/0.5 ML VIAL NEB SCH ×4 (07:19→19:59)
[2022-08-06] MEDS: POLYETHYLENE (MIRALAX) 17 GM PACK PO SCH (07:51)
[2022-08-06] MEDS: dexAMETHasone 6 MG in SYRINGE 0 ML IV SCH (07:51)
[2022-08-06] MEDS: METOPROLOL TARTRATE 25 MG TAB PO SCH ×2 (07:51→21:16)
[2022-08-06] MEDS: ENOXAPARIN INJ 40 MG/0.4 ML SYR SQ SCH (07:52)
[2022-08-06] MEDS: DOCUSATE SODIUM 100 MG CAP PO SCH ×3 (07:52→21:16)
[2022-08-06] MEDS: CLOPIDOGREL BISULFATE 75 MG TAB PO SCH (07:53)
[2022-08-06] MEDS: VENLAFAXINE HCL XR 37.5 MG CAPXR PO SCH ×2 (07:53→08:19)
[2022-08-06] MEDS: allopurinoL 100 MG TAB PO SCH ×2 (07:53→08:18)
[2022-08-06] MEDS: PANTOprazole 40 MG TAB PO SCH ×2 (07:53→08:19)
[2022-08-06] MEDS: MULTIVITAMIN TAB PO SCH ×2 (07:53→08:19)
[2022-08-06] MEDS: ATORVASTATIN 20 MG TAB PO SCH ×2 (07:54→08:18)
[2022-08-06] MEDS: AMIODARONE 200 MG TAB PO SCH (07:54)
[2022-08-06] MEDS: ASCORBIC ACID 500 MG TAB PO SCH ×2 (07:54→08:18)
[2022-08-06] MEDS: LEVOTHYROXINE SODIUM 100 MCG TABLET PO SCH ×2 (07:54→08:19)
[2022-08-06] MEDS: FOLIC ACID 1 MG TAB PO SCH ×2 (07:54→08:18)
[2022-08-06] MEDS: ASPIRIN 81 MG ECTAB PO SCH (07:55)
[2022-08-06] MEDS ORDERED: FUROSEMIDE 40 MG/4 ML VIAL IV ONE (08:51)
--- NOTE | 2022-08-06 09:23 | XRay Report ---
SINGLE VIEW CHEST CLINICAL HISTORY: Follow-up pneumothorax. FINDINGS: An AP, portable, upright chest radiograph is compared to study performed earlier the same d ay 08/05/2022 and correlated with chest CT dated 07/27/2022. The examination is degraded by portable technique and patient rotation. A 2-lead cardiac AICD is unchanged in position. Calcified mediastina l lymph nodes are again noted. The heart is enlarged noting atherosclerotic calcification of the thor acic aorta. Multifocal airspace consolidation is similar to previous. Suspect trace pleural effusions . Small bilateral pneumothoraces are similar to previous. The bony thorax is grossly intact. Subcutan eous emphysema is again seen in the lower neck and upper lateral chest wall bilaterally. IMPRESSION: 1. Small bilateral apical pneumothoraces are unchanged. 2. Multifocal airspace consolidation is similar to previous. 3. Cardiomegaly and AICD. 4. Subcutaneous emphysema is again noted. ACT 112: Negative or not required by law. Electronically signed by: Kun Celeste M.D. 08/06/2022 9:20 AM
--- NOTE | 2022-08-06 11:09 | Pulmonology Progress Note ---
Date of Service August 06, 2022 Assessment & Plan (1) Acute respiratory failure with hypoxia: (2) Acute on chronic HFrEF (heart failure with reduced ejection fraction): (3) Pneumonia due to COVID-19 virus: (4) Pneumothorax: Plan Impression: 86-year-old male with COVID pneumonitis and hypoxemic respiratory failure. Unfortunately his clinical condition appears to be worsening and chest x-ray today demonstrates a possible small apical pneumothorax. Patient is maintained on dexamethasone 6 mg daily. Recommendations: 1. The patient's chest radiograph is failed to show any significant improvement and clinically he appears worsening with increasing oxygen requirement. This appears to be most likely consistent with progressing fibrosis/inflammation of the lungs despite therapy. The patient's oxygen requirement is too high to consider any additional invasive procedures such as bronchoscopy or BAL. His procalcitonin and BNP were normal on presentation and he is not been febrile however his white count is elevated although its unclear if this is related to steroids. Would recommend repeating his BNP, and procalcitonin as this may be helpful in seeing whether or not there is any alternative diagnosis which might be pursued. Agree that the patient is not a candidate for additional immunosuppression 2. Continue supplemental oxygen titrated to keep oxygen saturations at or above 81%. Could consider a trial of self proning to see whether or not this may offer the patient a clinical benefit. His lung disease appears to be fairly diffuse on imaging so I am unclear if this would be beneficial. If his oxygen requirement did not significantly improve with this maneuver, would not recommend pursuing it in the long-term. 3. Optimization of the patient's underlying medical problems may provide some improvement in his overall breathing difficulties and is deferred to the patient's primary service. Risk-benefit analysis of continuing amiodarone in the setting of significant structural lung disease is appropriate and is deferred to the primary service. If possible would recommend discontinuation 4. Pneumothorax: No indication for tube thoracostomy currently. This does not portend a favorable prognosis for the patient and may indicate significant progression of underlying structural lung disease. Repeat chest x-ray in a.m. 5. Confirmed the patient's CODE STATUS and DNR. It may be appropriate to engage palliative care given the patient's despondent state and begin to have discussions about quality of life going forward as it is unclear how much improvement we may be able to see with regards to his respiratory status. Will continue to follow with you. Feel free to contact us with questions or concerns Admission and Anticipated Discharge Date Admission Date: July 22, 2022 Subjective Asked by hospitalist to reevaluate this patient with hypoxemic respiratory failure in the setting of reduced ejection fraction and COVID infection. He had been seen initially on presentation about 6 days ago and at that point time it was recommended to discontinue steroids and baricitinib. No other escalation of therapies were felt to be appropriate at that time. The patient has continued to be clinically stagnant and require increasing oxygen. Chest x-ray today demonstrated a possible small apical pneumothorax. The patient is currently awake and alert. He is on heated high flow oxygen at 30 L/min and an FiO2 of 100% as well as a high flow facemask over the top to maintain oxygen saturations of 93%. The patient appears depressed and despondent. He is not very interactive. He is slightly tachypneic. He denies chest pain or palpitations. Review of Systems Review of Systems: Please refer to hospitalist note. No additions or deletions Physical Exam Constitutional: + ill appearing, + thin and + frail appearing Neck: trachea midline, no thyromegaly Respiratory: + labored breathing and + tachypneic; no cough Auscultation: + crackles and + rhonchi; no wheezes Cardiovascular: RRR, no murmur, no edema Gastrointestinal (Abdomen): normal bowel sounds, soft, nontender, no hepatosplenomegaly Musculoskeletal: Extremities: extremities normal to inspection Skin: no rashes, warm and dry Neurologic: Nonfocal exam Lymphatic: no cervical lymphadenopathy Results & Data Results & Data ([facility]) Vital Signs (Past 12 Hours) Vital Signs Temp Pulse Pulse Resp BP Pulse Ox O2 Del Method 08/06/22 10:37 75 24 93 Oxymask, High Flow Nasal Cannula 08/06/22 08:00 Oxymask, High Flow Nasal Cannula 08/06/22 08:34 22 86 L Oxymask, High Flow Nasal Cannula 08/06/22 07:44 79 20 85 L High Flow Nasal Cannula 08/06/22 07:09 36.9 C 75 22 119/74 86 L High Flow Nasal Cannula 08/06/22 02:34 64 18 94 High Flow Nasal Cannula 08/06/22 02:58 36.6 C 71 18 125/75 90 High Flow Nasal Cannula O2 Flow Rate FiO2 08/06/22 10:37 30 100 08/06/22 08:00 30 100 08/06/22 08:34 30 100 08/06/22 07:44 20 100 08/06/22 07:09 20 100 08/06/22 02:34 20 90 08/06/22 02:58 Critical Care Results & Data Vital Signs (Past 12 Hours) Vital Signs Temp Pulse Pulse Resp BP Pulse Ox O2 Del Method 08/06/22 10:37 75 24 93 Oxymask, High Flow Nasal Cannula 08/06/22 08:00 Oxymask, High Flow Nasal Cannula 08/06/22 08:34 22 86 L Oxymask, High Flow Nasal Cannula 08/06/22 07:44 79 20 85 L High Flow Nasal Cannula 08/06/22 07:09 36.9 C 75 22 119/74 86 L High Flow Nasal Cannula 08/06/22 02:34 64 18 94 High Flow Nasal Cannula 08/06/22 02:58 36.6 C 71 18 125/75 90 High Flow Nasal Cannula O2 Flow Rate FiO2 08/06/22 10:37 30 100 08/06/22 08:00 30 100 08/06/22 08:34 30 100 08/06/22 07:44 20 100 08/06/22 07:09 20 100 08/06/22 02:34 20 90 08/06/22 02:58 Lab & Micro Results (Past 24 Hours) RBC 2.30 M/uL (4.63-6.08) L 08/06/22 WBC 20.07 K/ul (4.8-10.8) H 08/06/22 Hgb 9.1 g/dl (14.0-18.0) L 08/06/22 Hct 25.6 % (40.1-51.0) L 08/06/22 MCV 111.3 fL (80.0-100.0) H 08/06/22 MCH 39.6 pg (25.0-34.0) H 08/06/22 MCHC 35.5 g/dL (32.0-36.0) 08/06/22 RDW Standard Deviation 52.6 fL (36.4-46.3) H 08/06/22 RDW Coefficient of Variation 13.0 % (11.5-14.5) 08/06/22 Plt Count 164 K/uL (130-400) 08/06/22 MPV 11.1 fL (9.4-12.4) 08/06/22 Neutrophils (%) (Auto) 93.7 % 08/06/22 Lymphocytes (%) (Auto) 2.6 % 08/06/22 Monocytes # (Auto) 0.41 K/uL (0.24-0.82) 08/06/22 Eosinophils # (Auto) 0.01 K/uL (0-0.50) 08/06/22 Immature Granulocyte % (Auto) 1.6 % 08/06/22 Neutrophils # (Auto) 18.79 K/uL (1.4-6.5) H 08/06/22 Lymphocytes # (Auto) 0.52 K/uL (1.2-3.4) L 08/06/22 Monocytes # (Auto) 0.41 K/uL (0.24-0.82) 08/06/22 Eosinophils # (Auto) 0.01 K/uL (0-0.50) 08/06/22 Basophils # (Auto) 0.02 K/uL (0-0.2) 08/06/22 Immature Granulocyte # (Auto) 0.32 K/uL (0.00-0.02) H 08/06 Macrocytosis Present 08/06/22 Ovalocytes 1+ 08/06/22 Na 133 mmol/L (136-145) L 08/06/22 K 4.7 mmol/L (3.5-5.1) 08/06/22 Cl 104 mmol/L (98-107) 08/06/22 CO2 24 mmol/L (21-32) 08/06/22 Anion Gap 5 (3-11) 08/06/22 BUN 46 mg/dl (6-23) H 08/06/22 Creatinine 0.92 mg/dl (0.6-1.4) 08/06/22 Estimated GFR ( Amer) 87.6 ml/min 08/06/22 Estimated GFR (Non-Af Amer) 75.6 ml/min 08/06/22 BUN/Creatinine Ratio 50.0 (10-20) H 08/06/22 Glu 113 mg/dl (70-99(Fasting)) H 08/06/22 Ca 8.6 mg/dl (8.5-10.1) 08/06/22 Phosphorus Level 2.6 mg/dl (2.5-4.9) 08/06/22 Mg 2.3 mg/dl (1.7-2.4) 08/06/22 06:02 Calcium Level 8.6 mg/dl (8.5-10.1) 08/06/22 06:02 Microbiology 08/04/22 17:45 Urine Culture - Preliminary Urine,Clean Catch No growth - Less than 1,000 colonies/mL, Final report to follow. Diagnostic Findings (Past 24 Hours) Chest X-Ray 08/05/22 08:02 XR chest 1V portable CLINICAL HISTORY: eval pneumothorax TECHNIQUE: Single frontal radiograph of the chest was obtained. Comparison: Comparison is made to chest radiograph 08/04/2022 FINDINGS: Pacemaker defibrillator is seen. Cardiomegaly is noted. Multifocal airspace opacities are seen. Redemonstration of likely bilateral pneumothoraces. Evaluation is again limited by subcutaneous emphysema. However, these appear similar in size to prior exam. IMPRESSION: 1. Likely bilateral pneumothoraces are similar in size to prior exam. Redemonstration of subcutaneous emphysema. 2. Interval stability of multifocal airspace opacities. 3. Cardiomegaly and AICD. ACT 112: Negative or not required by law. Electronically signed by: Sumit Goldstein M.D. 08/05/2022 2:58 PM Chest X-Ray 08/06/22 17:45 SINGLE VIEW CHEST CLINICAL HISTORY: Follow-up pneumothorax. FINDINGS: An AP, portable, upright chest radiograph is compared to study performed earlier the same day 08/05/2022 and correlated with chest CT dated 07/27/2022. The examination is degraded by portable technique and patient rotat ion. A 2-lead cardiac AICD is unchanged in position. Calcified mediastinal lymph nodes are again noted. The heart is enlarged noting atherosclerotic calcification of the thoracic aorta. Multifocal airspace consolidation is similar to previous. Suspect trace pleural effusions. Small bilateral pneumothoraces are similar to previous. The bony thorax is grossly intact. Subcutaneous emphysema is again seen in the lower neck and upper lateral chest wall bilaterally. IMPRESSION: 1. Small bilateral apical pneumothoraces are unchanged. 2. Multifocal airspace consolidation is similar to previous. 3. Cardiomegaly and AICD. 4. Subcutaneous emphysema is again noted. ACT 112: Negative or not required by law. Electronically signed by: Kun Celeste M.D. 08/06/2022 9:20 AM I & O Totals 24 Hours 08/05/22 08/06/22 08/07/22 06:59 06:59 06:59 Intake Total 1183.75 / 1183.75 1093.015 / 1093.015 Output Total 825 / 825 1200 / 1200 Balance 358.75 / 358.75 -106.985 / -106.985 Cumulative 07/22/22 08:47 thru 08/06/22 05:30 Intake Total 44003.125 Output Total 52630 Balance -74338.875 RT Ventilator Mngmt (Last Documented) Ventilator Ordered Settings Respiratory Rate 24 08/06/22 10:37 Fraction of Inspired Oxygen 100 08/06/22 10:37 Ventilator - PT Measurements Respiratory Rate 24 End-Tidal CO2 35 PG Care Time/CCT Total # of Minutes Spent Total Time Spent with Patient: Total time spent is greater than 50% in coordination of care (as documented) at patient's floor/unit and/or counseling patient: Coding Level of Care Code 10979 Subseq Hosp Care Lvl 3 Diagnoses Acute respiratory failure with hypoxia J96.01 Acute on chronic HFrEF (heart failure with reduced ejection fraction) I50.23 Pneumonia due to COVID-19 virus U07.1; J12.82 Pneumothorax J93.9
[2022-08-06] MEDS ORDERED: MoRPHine SULFATE 5 MG/0.25 ML UDP PO PRN (14:26)
[2022-08-06] MEDS ORDERED: PROMETHAZINE HCL 12.5 MG in SODIUM CHLORIDE 0.9% 50 ML IV PRN (14:26)
[2022-08-06] MEDS ORDERED: ATROPINE SULFATE 1% OP SOLN 5 ML BTL SL PRN (14:26)
[2022-08-06] MEDS ORDERED: LORazepam 0.5 MG in SYRINGE 0 ML IV PRN (14:26)
[2022-08-06] MEDS ORDERED: GLYCOPYRROLATE 0.2 MG/ML VIAL IV PRN (14:26)
[2022-08-06] MEDS ORDERED: ONDANSETRON 4 MG OD TAB SL PRN (14:26)
[2022-08-06] MEDS ORDERED: MoRPHine SULFATE 2 MG/ML CARP IV PRN (14:26)
[2022-08-06] MEDS ORDERED: ONDANSETRON INJ 2 MG/ML 2 ML VIAL IV PRN (14:26)
[2022-08-06] MEDS ORDERED: LORazepam 0.5 MG TAB PO PRN (14:26)
--- NOTE | 2022-08-06 16:54 | Hospitalist Progress Note ---
Date of Service August 06, 2022 Assessment & Plan (1) Comfort measures only status: Plan: PT is not improving, he has worsened status, will not eat, cannot have PPN due to heart failure PT states that he does not want any additional treatment, he understands that he will likely decline and in the hospital will stop non essential medications, disable defibrillator, have palliative consult for 08/07/22 (2) Acute respiratory failure with hypoxia: Plan: Patient admitted with COVID-19 on 07/22 Vaccinated Moderna 11/19/20 12/17/20; Booster 09/2021 Initial oxygen requirement 3-6 liters nasal cannula, O2 requirement worsened 07/25, currently requiring Hi Flow with FiO2 90-100%, remdesevir completed, and baricitinib completed, steroids completed Major risk factors of age (86 years old) and severe cardiomyopathy (LVEF 25- 30%). no help with oxygen req with dobutamine Pneumothorax seen B/L Patient changed his code status to DNR/DNI on 07/26 - re-discussed intubation 07/27 with both patient and and both agree he would not want this if he was to get worse. Azithromycin 500mg IV given 5 days (07/22 - 07/26) Zosyn completed CT for PE - negative for pulmonary emboli 07/27 cxr 08/04 shows subcutaneous emphysema, small apical pneumothoraces (3) Pneumonia due to COVID-19 virus: Plan: -See acute hypoxic respiratory failure no worsening cxr, persistent leukocytosis negative urine, no diarrhea for c diff concern, no fever to check blood cultures (4) Electrolyte abnormality: Plan: Resolved Suspect hyponatremia due to Lasix use. Now on hold Hyperkalemia likely due to reduced renal function Lokelma 10mg as administered with normalized potassium (5) Cardiomyopathy: Plan: Acute on chronic HFrEF treated and resolved started dobutamine gtt with cardiology oversight 08/01/22 stopped am 08/04/22, no real clinical change Continue metoprolol changed to tartrate from succinate. Unable to tolerate Entresto due to low normal BP. 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 after a long discussion with and patient it became clear to understand that the pt did not want to have any additional therapy and feels that he would like to be on COMFORT CARE. His and extended family are supportive of this decision. The pt understands that he will likely from this illness in the hospital. The patients wishes were relayed to nursing staff Review of Systems Review of Systems: Moderate respiratory distress and fatigue no headache, no visual changes no speech or swallowing issues no chest pain, pressure or palpitations Significant shortness of breath with exertion nonproductive cough no abdominal pain, nausea or vomiting, diarrhea or constipation no dysuria, hematuria or frequency no focal joint pain plus trace peripheral edema no back pain, CVA tenderness or radicular pain no bruising, bleeding or rashes no focal signs of weakness or numbness or altered sensation no complaints of anxiety or depression.. Physical Exam Physical Exam: The patient appeared despondent. He is compensated with high flow oxygen but does become breathless with speaking and eating Vital signs as documented. Head exam is normocephalic atraumatic Neck is without JVD, thyromegaly, or carotid bruits. Lungs are coarse bilaterally with bibasilar rales Cardiac exam, Rhythm is regular.. Systolic ejection murmur is heard Abdominal exam reveals normal bowel sounds, soft non tender, no masses Extremities are trace edematous and both pedal pulses are present Neurologic exam is alert and oriented, no focal loss of strength or sensation Skin is without bruises or rashes Psychologically is with concerns for depression.. Results & Data Results & Data ([facility]) Vital Signs (Past 12 Hours) Vital Signs Temp Pulse Pulse Pulse Resp BP Pulse Ox 08/06/22 14:19 80 08/06/22 14:51 81 24 96 08/06/22 14:28 22 95 08/06/22 06:23 71 08/06/22 11:19 97.9 F 80 24 106/67 89 L 08/06/22 10:37 75 24 93 08/06/22 08:00 08/06/22 08:34 22 86 L 08/06/22 07:44 79 20 85 L 08/06/22 07:09 98.4 F 75 22 119/74 86 L O2 Del Method O2 Flow Rate FiO2 08/06/22 14:19 08/06/22 14:51 Oxymask, High Flow Nasal Cannula 20 100 08/06/22 14:28 Oxymask, High Flow Nasal Cannula 20 100 08/06/22 06:23 08/06/22 11:19 High Flow Nasal Cannula 35 100 08/06/22 10:37 Oxymask, High Flow Nasal Cannula 30 100 08/06/22 08:00 Oxymask, High Flow Nasal Cannula 30 100 08/06/22 08:34 Oxymask, High Flow Nasal Cannula 30 100 08/06/22 07:44 High Flow Nasal Cannula 20 100 08/06/22 07:09 High Flow Nasal Cannula 20 100 PG Care Time/CCT Total # of Minutes Spent Total Time Spent with Patient: Total time spent is greater than 50% in coordination of care (as documented) at patient's floor/unit and/or counseling patient: Coding Level of Care Code 65215 Subseq Hosp Care Lvl 3 Diagnoses Comfort measures only status Z51.5 Acute respiratory failure with hypoxia J96.01 Pneumonia due to COVID-19 virus U07.1; J12.82 Electrolyte abnormality E87.8 Cardiomyopathy I25.5 Cardiomyopathy type: ischemic Acute on chronic HFrEF (heart failure with reduced ejection fraction) I50.23 Anemia D64.9 Coronary artery disease I25.10 ICD (implantable cardioverter-defibrillator) in place Z95.810 Hyperlipidemia E78.5 Hypothyroidism E03.9 Elevated LFTs R79.89 (1) Cardiomyopathy Cardiomyopathy type: ischemic Qualified Code(s): I25.5 - Ischemic cardiomyopathy
--- NOTE | 2022-08-07 07:14 | XRay Report ---
XR chest 1V portable HISTORY: 86 years-old Male ptx status post placement of a left subclavian pacer COMPARISON: Chest radiograph 08/06/2022, CTA chest 07/27/2022. TECHNIQUE: AP view of the chest FINDINGS: Cardiac silhouette is enlarged. Left subclavian pacer/AICD. Calcified mediastinal and hilar lymph nod es with atherosclerosis of the aorta. Bilateral mixed interstitial and alveolar opacities appear stab le. Degenerative changes of the shoulders and spine. No large pleural effusion. Subcutaneous emphysem a. Stable appearance of the tracer bilateral apical pneumothoraces. Subcutaneous emphysema. IMPRESSION: Stable size of the trace apical pneumothoraces. Subcutaneous emphysema with pneumomediastinum redemon strated. ACT 112: Negative or not required by law. The above report was generated using voice recognition software. It may contain grammatical, syntax o r spelling errors. Electronically signed by: Earnest Buckley M.D. 08/07/2022 7:12 AM
[2022-08-07] MEDS: ALBUTEROL 0.5% NEB SOLN 2.5 MG/0.5 ML VIAL NEB SCH ×2 (07:44→11:39)
--- NOTE | 2022-08-07 08:52 | Pulmonology Progress Note ---
Date of Service August 07, 2022 Assessment & Plan (1) Acute respiratory failure with hypoxia: (2) Acute on chronic HFrEF (heart failure with reduced ejection fraction): (3) Pneumonia due to COVID-19 virus: (4) Pneumothorax: Plan Impression: 86-year-old male with COVID pneumonitis and hypoxemic respiratory failure. Unfortunately his clinical condition appears to be worsening and chest x-ray today demonstrates a possible small apical pneumothorax. Patient is maintained on dexamethasone 6 mg daily. -- Acute respiratory failure with hypoxia Likely secondary to multilobar COVID-19 pneumonia BNP 233 Procalcitonin 0.13 CRP 3.65 Continue with O2 supplementation to keep oxygen saturation between 88-92% -- Pneumothorax Spontaneous with subcu emphysema Bilateral apical Has not change in size Avoid CPAP/BiPAP Plan: Chest x-ray from today shows subcu emphysema with small right-sided apical pneumothorax, other opacities appreciated bilaterally more on the right side Would recommend aggressive diuresis to keep the patient negative balance O2 supplementation to keep oxygen saturation between 88-92% Agree with palliative approach given no significant improvement Case was discussed with nurse at bedside Please note the above document was generated using voice recognition software. It may contain grammatical, syntax or spelling errors.Any formal questions or c oncerns about the content, text or information contained within the body of this dictation should be directly addressed to the provider for clarification. Admission and Anticipated Discharge Date Admission Date: July 22, 2022 Subjective Patient's case was discussed with nurse. He has been on high flow. Case is discussed with outgoing supervisor assembly. Review of Systems Review of Systems: Unobtainable due to mental health condition Physical Exam Physical Exam: Patient not examined due to coronavirus restrictions and attempts to minimize exposure to staff and consider PPE. Please refer to the hospitalist exam for complete details. Skin: no rashes, warm and dry Lymphatic: no cervical or axillary lymphadenopathy Results & Data Results & Data ([facility]) Vital Signs (Past 12 Hours) Vital Signs Temp Pulse Resp BP Pulse Ox O2 Del Method O2 Flow Rate 08/07/22 07:45 97 H 22 85 L High Flow Nasal Cannula 20 08/07/22 07:45 97 H 22 85 L High Flow Nasal Cannula 20 08/07/22 07:36 36.9 C 103 H 20 111/66 87 L High Flow Nasal Cannula 20 08/07/22 03:17 72 18 85 L High Flow Nasal Cannula 20 08/06/22 23:38 74 16 93 High Flow Nasal Cannula 20 08/06/22 21:34 High Flow Nasal Cannula 20 FiO2 08/07/22 07:45 100 08/07/22 07:45 100 08/07/22 07:36 100 08/07/22 03:17 100 08/06/22 23:38 100 08/06/22 21:34 100 Laboratory Results 08/06/22 06:02 08/06/22 06:02 PG Care Time/CCT Total # of Minutes Spent Total Time Spent with Patient: Total time spent is greater than 50% in coordination of care (as documented) at patient's floor/unit and/or counseling patient: Coding Level of Care Code 31801 Subseq Hosp Care Lvl 2 Diagnoses Acute respiratory failure with hypoxia J96.01 Acute on chronic HFrEF (heart failure with reduced ejection fraction) I50.23 Pneumonia due to COVID-19 virus U07.1; J12.82 Pneumothorax J93.9
[2022-08-07] MEDS: METOPROLOL TARTRATE 25 MG TAB PO SCH ×2 (08:53→08:58)
[2022-08-07] MEDS: DOCUSATE SODIUM 100 MG CAP PO SCH ×2 (08:54→08:58)
--- NOTE | 2022-08-07 11:02 | Palliative Care Consultation ---
Date of Consultation August 07, 2022 Assessment & Plan (1) Dyspnea: He admits to dyspnea at rest and severe dyspnea with minimal exertion. We discussed using opioids for relief of air hunger. His and daughter tell me multiple times that their only wish is for him to be comfortable. We discussed high flow O2 which is generally not consistent with comfort and that sat does not necessarily correlate with sensation of dyspnea or air hunger. They are all in agreement with weaning of high flow O2 to nasal cannula. With O2 wean and dyspnea at rest, would use routine dosing of oral morphine concentrate to create steady state relief. He does have a peripheral IV site for prn morphine IV which would provide more rapid relief. We discussed sedation and his and daughter feel that they have said the things that are important to them. They are calling the other children to come and speak with him while he is able to respond. We talked about continuing to talk with him and assume that he is able to hear them, even when he is asleep. We also discussed normal variations in breathing pattern and signs of distress to watch for. He does not have audible tracheal secretions at this time. Agree with prn IV glycopyrrolate if needed for secretions. Would use atropine if unable to maintain IV access. Discussed plan of care with family, Dr. Brown and with RN. (2) Anxiety: We discussed link between dyspnea and anxiety. He denies fears of worries at this time, but his family tells me that he is a very stoic person and would likely not complain of feeling anxious. Lorazepam is available prn. 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 They have been for 65 years and Mrs. Jones is tearful when talking about life without her . 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 (4) Acute respiratory failure with hypoxia: (5) Pneumonia due to COVID-19 virus: (6) Cardiomyopathy: Cardiomyopathy type: ischemic Qualified Code(s): I25.5 - Ischemic cardiomyopathy (7) ICD (implantable cardioverter-defibrillator), dual, in situ: Deactivated today by [employer] rep. Magnet removed from chest. History of Present Illness Reason for Consultation: comfort care Requesting Physician: Dr. Brown Attending Physician: Marvin Brown MD History of Present Illness 86 yo gentleman with history of CAD, heart failure with cardiomyopathy and EF of 25-30% with ICD placement in 2019. He was admitted with shortness of breath and positive covid test one week prior to admission. Despite ongoing diuresis and treatment for covid with remdesivir, baricitinib and high dose steroid, he has had progressive, hypoxic respiratory failure and has been on high flow O2. He is currently on 20L with FiO2 of 100. He is awake and answers questions but has difficulty talking due to shortness of breath. Per RN, he had difficulty with oral medications this morning as well. He is DNR. Dr. Brown met with him and his family yesterday and discussed goals of care. At that time, they were in agreement with shift of focus to comfort and symptom management. Mrs. Jones and her oldest daughter are at bedside. Allergies Allergy/AdvReac Type Severity Reaction Status Date / Time No Known Drug Allergies Allergy Unknown Verified 06/12/22 13:14 Home Medications Medication Instructions Recorded Confirmed Type aspirin 81 mg tablet 81 mg PO DAILY 06/02/19 07/22/22 History nitroglycerin 0.4 mg sublingual 0.4 mg sublingual Q5M PRN Chest 06/02/19 07/22/22 History tablet Pain #25 tabs ascorbic acid (vitamin C) 250 mg 250 mg PO DAILY 07/08/19 07/22/22 History tablet (Vitamin C) multivitamin 1 cap PO DAILY 07/08/19 07/22/22 History allopurinol 300 mg tablet 300 mg PO DAILY #90 tabs 07/05/20 07/22/22 Rx levothyroxine 100 mcg capsule 100 mcg PO DAILY 07/19/20 07/22/22 History omeprazole 20 mg capsule,delayed 20 mg PO DAILY #30 caps 08/02/20 07/22/22 Rx release clopidogrel 75 mg tablet (Plavix) 75 mg PO DAILY #90 tabs 06/13/21 07/22/22 Rx ranolazine 500 mg tablet,extended 500 mg PO BID #180 tabs 01/09/22 07/22/22 Rx release,12 hr atorvastatin 20 mg tablet 20 mg PO DAILY 05/22/22 07/22/22 History metoprolol succinate 100 mg 100 mg PO DAILY #90 tabs 05/22/22 07/22/22 Rx tablet,extended release 24 hr amiodarone 200 mg tablet 200 mg PO DAILY 06/12/22 07/22/22 History furosemide 40 mg tablet (Lasix) 20 mg PO DAILY PRN weight gain #30 06/12/22 07/22/22 Rx tabs Patient History Medical History Congenital heart disease Hyperlipidemia Hypothyroidism ICD (implantable cardioverter-defibrillator) in place Myocardial Infarction SBO (small bowel obstruction) Ventricular tachycardia Surgical History History of heart artery stent 04/01/20 at [facility] [place] History of implantable cardioverter-defibrillator (ICD) placement Family History Brother Hx of CABG Sister Myocardial infarction Social History Smoking Status: Never smoker Second Hand Exposure: No; Hx Alcohol Use: No Hx Substance Use: No Preferred Language: Maltese Communication Ability: Effective Sorter Upholstery Parts Required: No Beliefs That Will Affect Care: Caodaism and Spiritual marital status: Current Living Situation: Spouse Current Living Situation Comment: home 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 Feels Safe at Home: Yes Assistive Devices: Cane and Walker Review of Systems Review of Systems: ESAS Pain 0/3 Dyspnea 2/3 Nausea 0/3 Anxiety 1/3 Drowsiness 1/3 PPS 20% Physical Exam Constitutional: + ill appearing Eyes: EOM intact bilaterally ENMT: Mouth: + dry oral mucous membranes Respiratory: + labored breathing and + uses accessory muscles no audible traceal secretions Cardiovascular: Rate/Rhythm: regular rate and regular rhythm magnet on chest for ICD Gastrointestinal (Abdomen): nontender Musculoskeletal: Extremities: + muscle atrophy Skin: warm and dry Neurologic: lethargic but responds appropriately to questions Genitourinary: nino catheter, decreased urine output Results & Data ([facility]) Vital Signs (Past 12 Hours) Vital Signs Temp Pulse Resp BP Pulse Ox O2 Del Method O2 Flow Rate 08/07/22 07:45 97 H 22 85 L High Flow Nasal Cannula 20 08/07/22 07:45 97 H 22 85 L High Flow Nasal Cannula 20 08/07/22 07:36 98.4 F 103 H 20 111/66 87 L High Flow Nasal Cannula 20 08/07/22 03:17 72 18 85 L High Flow Nasal Cannula 20 08/06/22 23:38 74 16 93 High Flow Nasal Cannula 20 FiO2 08/07/22 07:45 100 08/07/22 07:45 100 08/07/22 07:36 100 08/07/22 03:17 100 08/06/22 23:38 100 PG Care Time/CCT Total # of Minutes Spent Total Time Spent: 84 Total Time Spent with Patient: Total time spent is greater than 50% in coordination of care (as documented) at patient's floor/unit and/or counseling patient:symptom management, goals of care, patient and family education and support Coding Level of Care Code 26049 Initial Inpt Care Lvl 3 Diagnoses Dyspnea R06.00 Anxiety F41.9 Palliative care encounter Z51.5 Acute respiratory failure with hypoxia J96.01 Pneumonia due to COVID-19 virus U07.1; J12.82 Cardiomyopathy I25.5 Cardiomyopathy type: ischemic ICD (implantable cardioverter-defibrillator), dual, in situ Z95.810
[2022-08-07] MEDS: MoRPHine SULFATE 5 MG/0.25 ML UDP PO SCH ×3 (12:51→23:14)
--- NOTE | 2022-08-07 12:59 | Hospitalist Progress Note ---
Date of Service August 07, 2022 Assessment & Plan (1) Comfort measures only status: Plan: PT is not improving, he has worsened status, will not eat, cannot have PPN due to heart failure PT states that he does not want any additional treatment, he understands that he will likely decline and in the hospital will stop non essential medications, disable defibrillator, have palliative consult for 08/07/22 (2) Acute respiratory failure with hypoxia: Plan: Patient admitted with COVID-19 on 07/22 Vaccinated Moderna 11/19/20 12/17/20; Booster 09/2021 Initial oxygen requirement 3-6 liters nasal cannula, O2 requirement worsened 07/25, currently requiring Hi Flow with FiO2 90-100%, remdesevir completed, and baricitinib completed, steroids completed Major risk factors of age (86 years old) and severe cardiomyopathy (LVEF 25- 30%). no help with oxygen req with dobutamine Pneumothorax seen B/L Patient changed his code status to DNR/DNI on 07/26 - re-discussed intubation 07/27 with both patient and and both agree he would not want this if he was to get worse. Azithromycin 500mg IV given 5 days (07/22 - 07/26) Zosyn completed CT for PE - negative for pulmonary emboli 07/27 cxr 08/04 shows subcutaneous emphysema, small apical pneumothoraces (3) Pneumonia due to COVID-19 virus: Plan: -See acute hypoxic respiratory failure no worsening cxr, persistent leukocytosis negative urine, no diarrhea for c diff concern, no fever to check blood cultures (4) Electrolyte abnormality: Plan: Resolved Suspect hyponatremia due to Lasix use. Now on hold Hyperkalemia likely due to reduced renal function Lokelma 10mg as administered with normalized potassium (5) Cardiomyopathy: Plan: Acute on chronic HFrEF treated and resolved started dobutamine gtt with cardiology oversight 08/01/22 stopped am 08/04/22, no real clinical change Continue metoprolol changed to tartrate from succinate. Unable to tolerate Entresto due to low normal BP. 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 family is arriving and supportive of decision to stop any further treatment . The pt understands that he will likely from this illness in the hospital, he made the decision to stop therapy greatly appreciate palliative care expertise with this patient The patients wishes were relayed to nursing staff Review of Systems Review of Systems: Moderate respiratory distress and fatigue no headache, no visual changes no speech or swallowing issues no chest pain, pressure or palpitations Significant shortness of breath with exertion nonproductive cough no abdominal pain, nausea or vomiting, diarrhea or constipation no focal signs of weakness or numbness or lethargic Physical Exam Physical Exam: The patient appeared despondent. He is compensated with high flow oxygen but does become breathless with speaking and eating Vital signs as documented. Head exam is normocephalic atraumatic Neck is without JVD, thyromegaly, or carotid bruits. Lungs are coarse bilaterally with bibasilar rales Cardiac exam, Rhythm is regular.. Systolic ejection murmur is heard Abdominal exam reveals normal bowel sounds, soft non tender, no masses Extremities are trace edematous and both pedal pulses are present Neurologic exam is alert and oriented, no focal loss of strength or sensation Skin is without bruises or rashes Psychologically is with concerns for depression.. Results & Data Results & Data ([facility]) Vital Signs (Past 12 Hours) Vital Signs Temp Pulse Resp BP Pulse Ox O2 Del Method O2 Flow Rate 08/07/22 11:37 95 H 20 100 High Flow Nasal Cannula 20 08/07/22 08:00 High Flow Nasal Cannula 20 08/07/22 07:45 97 H 22 85 L High Flow Nasal Cannula 20 08/07/22 07:45 97 H 22 85 L High Flow Nasal Cannula 20 08/07/22 07:36 98.4 F 103 H 20 111/66 87 L High Flow Nasal Cannula 20 08/07/22 03:17 72 18 85 L High Flow Nasal Cannula 20 FiO2 08/07/22 11:37 08/07/22 08:00 100 08/07/22 07:45 100 08/07/22 07:45 100 08/07/22 07:36 100 08/07/22 03:17 100 PG Care Time/CCT Total # of Minutes Spent Total Time Spent with Patient: Total time spent is greater than 50% in coordination of care (as documented) at patient's floor/unit and/or counseling patient: Coding Level of Care Code 45089 Subseq Hosp Care Lvl 2 Diagnoses Comfort measures only status Z51.5 Acute respiratory failure with hypoxia J96.01 Pneumonia due to COVID-19 virus U07.1; J12.82 Electrolyte abnormality E87.8 Cardiomyopathy I25.5 Cardiomyopathy type: ischemic Acute on chronic HFrEF (heart failure with reduced ejection fraction) I50.23 Anemia D64.9 Coronary artery disease I25.10 ICD (implantable cardioverter-defibrillator) in place Z95.810 Hyperlipidemia E78.5 Hypothyroidism E03.9 Elevated LFTs R79.89 (1) Cardiomyopathy Cardiomyopathy type: ischemic Qualified Code(s): I25.5 - Ischemic cardiomyopathy
[2022-08-07] MEDS: MoRPHine SULFATE 2 MG/ML CARP IV PRN ×5 (14:39→23:38)
[2022-08-07] MEDS: LORazepam 0.5 MG TAB SL PRN (23:48)
[2022-08-08] MEDS: MoRPHine SULFATE 2 MG/ML CARP IV PRN ×6 (00:15→05:19)
[2022-08-08] MEDS: LORazepam 0.5 MG TAB SL PRN (03:11)
[2022-08-08] MEDS: MoRPHine SULFATE 5 MG/0.25 ML UDP PO SCH (05:15)
--- NOTE | 2022-08-08 05:47 | Death Pronouncement Note ---
Date of Service August 08, 2022 Pronouncement Note Admission Date Admission Date: July 22, 2022 Date and Time of Date of : 08/08/22 Time of : 06:05 PCOD Preliminary cause of : COVID-19 Contributing Factors (1) Acute respiratory failure with hypoxia: (2) Acute on chronic HFrEF (heart failure with reduced ejection fraction): (3) Pneumonia due to COVID-19 virus: (4) Pneumothorax: Additional Data Confirmation of : no pulse, no respirations, no heart sounds and pupils fixed and dilated Family: at bedside Attending/PCP notified?: Yes Attending physician: Marvin Brown MD Was code activated?: No Resident Activity Tracking Resident Involvement: Resident Care Provided Care Provided: Adult Hospital Medicine
--- NOTE | 2022-08-08 10:39 | Discharge Summary ---
Date of Service August 08, 2022 Principal Diagnosis Respiratory failure covid pneumonia comfort care status Discharge Exam Patient was pronounced by the on-call physician at 6:05 AM on 08/08/2022 Discharge Data Allergies Allergy/AdvReac Type Severity Reaction Status Date / Time No Known Drug Allergies Allergy Unknown Verified 06/12/22 13:14 Consultations 07/22/22 11:03 ED Decision to Admit Stat 07/25/22 09:09 Consult Cardiology Routine 07/27/22 08:59 HIM [Consult Health Information Management] Routine 07/31/22 07:38 Consult Pulmonology Routine 08/06/22 14:26 Consult Palliative Care Routine Ordered Studies 07/27/22 08:26 CT for pulmonary embolism PE [CT angio chest PE protocol] Stat Hospital Course (1) Comfort measures only status: Initially placed on comfort measures because the PT was not improving, he has worsened status, will not eat, cannot have PPN due to heart failure PT states that he does not want any additional treatment, he understands that he will likely decline and in the hospital will stop non essential medications, disable defibrillator, Patient at 08/08/2022 at 0605 AM The remainder of the note is from earlier in the hospital stay (2) Acute respiratory failure with hypoxia: Patient admitted with COVID-19 on 07/22 Vaccinated Moderna 11/19/20 12/17/20; Booster 09/2021 Initial oxygen requirement 3-6 liters nasal cannula, O2 requirement worsened 07/25, currently requiring Hi Flow with FiO2 90-100%, remdesevir completed, and baricitinib completed, steroids completed Major risk factors of age (86 years old) and severe cardiomyopathy (LVEF 25- 30%). no help with oxygen req with dobutamine Pneumothorax seen B/L Patient changed his code status to DNR/DNI on 07/26 - re-discussed intubation 07/27 with both patient and and both agree he would not want this if he was to get worse. Azithromycin 500mg IV given 5 days (07/22 - 07/26) Zosyn completed CT for PE - negative for pulmonary emboli 07/27 cxr 08/04 shows subcutaneous emphysema, small apical pneumothoraces (3) Pneumonia due to COVID-19 virus: -See acute hypoxic respiratory failure no worsening cxr, persistent leukocytosis negative urine, no diarrhea for c diff concern, no fever (4) Electrolyte abnormality: Resolved Suspect hyponatremia due to Lasix use. Now on hold Hyperkalemia likely due to reduced renal function Lokelma 10mg as administered with normalized potassium (5) Cardiomyopathy: Acute on chronic HFrEF treated and resolved started dobutamine gtt with cardiology oversight 08/01/22 stopped am 08/04/22, no real clinical change (6) Acute on chronic HFrEF (heart failure with reduced ejection fraction): with short run of PPN pt had escalation of oxygen requirements and seemed to be in heart failure Has attempt to maximize his heart failure treatment, dobutamine infusion did not help much (7) Anemia: (8) Coronary artery disease: (9) ICD (implantable cardioverter-defibrillator) in place: due to severe systolic cardiomyopathy LVEF 25-30% on resting echo March, (10) Hyperlipidemia: (11) Hypothyroidism: Total Time Total Time Spent Total Time Spent (In Minutes): It required less than 30 minutes to prepare this patient for discharge Discharge Plan Discharge Items Patient Disposition: Addtl Attending Provider Instructions: 86 y/o male who was admitted for covid pneumonia. He required progressively higher oxygen requirements despite receiving covid treatments. He was transitioned to comfort measures. Other Date/Time: 08/08/22 06:05 Coding Level of Care Code D/C DAY MANAGEMENT <30 MINS Diagnoses Comfort measures only status Z51.5 Acute respiratory failure with hypoxia J96.01 Pneumonia due to COVID-19 virus U07.1; J12.82 Electrolyte abnormality E87.8 Cardiomyopathy I25.5 Cardiomyopathy type: ischemic Acute on chronic HFrEF (heart failure with reduced ejection fraction) I50.23 Anemia D64.9 Coronary artery disease I25.10 ICD (implantable cardioverter-defibrillator) in place Z95.810 Hyperlipidemia E78.5 Hypothyroidism E03.9
== END 2022-08-08 08:48 | disposition expired | DRG 177 ==
LOC: ED 08:47 → SUATTDRO 11:20 → 2W 11:20 → 2E 07-26 09:05